=== PATIENT | female | born 1960 | race Caucasian/White ===

== ENCOUNTER 2017-12-17 05:02 | Emergency (ER) | payer OTHER ==
[2017-12-17] MEDS ORDERED: diazePAM 5 MG TABLET PO ONE (05:39)
[2017-12-17] MEDS ORDERED: ACETAMINOPHEN 1000 MG/100 ML VIAL (NON FORMULARY) IVPB ONE (05:39)
--- NOTE | 2017-12-17 05:50 | PDOC ---
History of Present Illness <Joy Laurent - Last Filed: 12/17/17 06:23> - History of Present Illness Initial Comments: 12/17/17 05:50 "The patient is a 57 year old female, with a significant past medical history of arthritis and gallstones (3 years ago), who presents to the emergency department with 2 days of bilateral shoulder pain radiating up to the back of her neck and the back of his head. She describes her pain as constant. She took Tylenol Arthritis, without relief. She reports associated chills but no fevers. The patient reports the be similar to an episode 3 years ago when she was diagnosed with gallstones. Pt endorses R sided abdominal pain. Denies N/V/D/ constipation. Denies dysuria. She denies recent chest pain or shortness of breath. Allergies: NKA Past surgical history: None reported. Social history: Smoker. Denies EtOH use and recreational drug use. Primary Care Physician: Dr. Bryce Spears " <Elia Bronson - Last Filed: 12/17/17 23:59> - General Stated Complaint: NECK/SHOULDER PAIN Time Seen by Provider: 12/17/17 05:16 Past History <Joy Laurent - Last Filed: 12/17/17 06:23> <Elia Bronson - Last Filed: 12/17/17 23:59> - Past Medical History Allergies/Adverse Reactions: Allergies Allergy/AdvReac Type Severity Reaction Status Date / Time No Known Allergies Allergy Verified 12/17/17 06:17 Home Medications: Ambulatory Orders Tramadol HCl 50 mg PO QID PRN #10 tablet MDD 4 12/17/17 Review of Systems - Review of Systems Comments:: 12/17/17 05:51 "GENERAL/CONSTITUTIONAL: No fever or chills. No weakness. HEAD, EYES, EARS, NOSE AND THROAT: No change in vision. No ear pain or discharge. No sore throat. CARDIOVASCULAR: No chest pain or shortness of breath. RESPIRATORY: No cough, wheezing, or hemoptysis. GASTROINTESTINAL: +abdominal pain No nausea, vomiting, diarrhea or constipation. GENITOURINARY: No dysuria, frequency, or change in urination. MUSCULOSKELETAL: +back pain. + Neck pain. + Shoulder pain. No joint or muscle swelling. SKIN: No rash NEUROLOGIC: No vertigo, loss of consciousness, or change in strength/sensation. ENDOCRINE: No increased thirst. No abnormal weight change. HEMATOLOGIC/LYMPHATIC: No anemia, easy bleeding, or history of blood clots. ALLERGIC/IMMUNOLOGIC: No hives or skin allergy. " <Elia Bronson - Last Filed: 12/17/17 23:59> *Physical Exam - Vital Signs Last Vital Signs Temp Pulse Resp BP Pulse Ox 97.1 F L 69 18 153/84 98 12/17/17 05:05 12/17/17 05:05 12/17/17 05:05 12/17/17 05:05 12/17/17 05:05 <Joy Laurent - Last Filed: 12/17/17 06:23> - Physical Exam Comments: 12/17/17 05:52 "GENERAL: Awake, alert, and fully oriented, in no acute distress. HEAD: No signs of trauma EYES: PERRLA, EOMI, sclera anicteric, conjunctiva clear ENT: Auricles normal inspection, hearing grossly normal, nares patent, oropharynx clear without exudates. Moist mucosa NECK:+ Paraspinal tenderness from neck to upper thoracic spine, no midline tenderness, no stepoffs, Normal ROM, supple, no lymphadenopathy, JVD, or masses LUNGS: Breath sounds equal, clear to auscultation bilaterally. No wheezes, and no crackles HEART: Regular rate and rhythm, normal S1 and S2, no murmurs, rubs or gallops ABDOMEN: + R sided TTP, normoactive bowel sounds. No guarding, no rebound. No masses EXTREMITIES: Normal range of motion, no edema. No clubbing or cyanosis. No cords, erythema, or tenderness NEUROLOGICAL: Cranial nerves II through XII intact. 5/5 strength and sensation in all extremities, Normal speech, normal gait, normal cerebellar function SKIN: Warm, Dry, normal turgor, no rashes or lesions noted. " <AiyanaElia - Last Filed: 12/17/17 23:59> Heart Score/ECG Review - ECG Impressions Comment:: 12/17/17 06:05 NSR, no Se/STDs, no TWIs, axis wnl, intervals wnl , rate 65 <AiyanaElia - Last Filed: 12/17/17 23:59> ED Treatment Course - LABORATORY CBC & Chemistry Diagram: 12/17/17 05:47 12/17/17 05:47 - ADDITIONAL ORDERS Additional order review: 12/17/17 05:47 RBC 3.81 MCV 98.6 H MCHC 34.8 RDW 12.3 MPV 7.5 Neutrophils % 51.9 Lymphocytes % 36.4 Monocytes % 8.1 Eosinophils % 2.3 Basophils % 1.3 - Medications Given in the ED: ED Medications Discontinued Medications Generic Name Dose Route Start Last Admin Trade Name Elvia PRN Reason Stop Dose Admin Diazepam 5 mg 12/17/17 05:39 12/17/17 06:17 Valium - PO 12/17/17 05:40 5 mg ONCE ONE Administration <Joy Laurent - Last Filed: 12/17/17 06:23> - LABORATORY CBC & Chemistry Diagram: 12/17/17 05:47 12/17/17 05:47 - RADIOLOGY Radiology Studies Ordered: Category Date Time Status ABDOMEN & PELVIS CT WITH CONTR [CT] Stat CT Scan 12/17/17 05:[address] W/O CONTR [CT] Stat CT Scan 12/17/17 05:38 Ordered CHEST PA & LAT [RAD] Stat Radiology 12/17/17 05:38 Ordered <Elia Bronson - Last Filed: 12/17/17 23:59> Medical Decision Making - Medical Decision Making 12/17/17 05:41 57 F with neck, back, and abdominal pain. Possible biliary colic with referred pain from diaphragm. However, pt's neck and back pain seems more msk in etiology , as it is paraspinal and reproducible with palpation. Pt with no h/o injury or trauma but will evaluate cervical spine with CT. Pt with no infectious symptoms , no meningismus. Pt with R sided abdominal tenderness, likely reflective of biliary colic but will consider CTAP to r/o appy if US is negative. - Labs - RUQ sono - CT c-spine - Tylenol, valium - Consider CTAP to r/o appy Pt signed out to oncoming attending at 7am, pending labs and imaging and reevaluation. <Elia Bronson - Last Filed: 12/17/17 23:59> *DC/Admit/Observation/Transfer - Attestations Scribe Attestion: 12/17/17 06:24 Documentation prepared by Joy Laurent, acting as medical staff services coordinator for Elia Bronson MD. <Joy Laurent - Last Filed: 12/17/17 06:23> - Attestations Physician Attestion: 12/17/17 23:59 I, Dr. Elia Bronson MD, attest that this document has been prepared under my direction and personally reviewed by me in its entirety. I further attest, that it accurately reflects all work, treatment, procedures and medical decision -making performed by me. <Elia Bronson - Last Filed: 12/17/17 23:59> Diagnosis at time of Disposition: Abdominal pain Qualifiers: Abdominal location: generalized Qualified Code(s): R10.84 - Generalized abdominal pain - Discharge Dispostion Disposition: HOME Condition at time of disposition: Improved - Prescriptions Prescriptions: Tramadol HCl 50 mg PO QID PRN #10 tablet MDD 4 PRN Reason: Pain - Referrals Referrals: Bryce Spears MD [Primary Care Provider] - - Patient Instructions Printed Discharge Instructions: DI for Abdominal Pain-Adult Additional Instructions: Return to the emergency department immediately with ANY new, persistent or worsening symptoms including worsening abdominal pain, fevers, inability to tolerate oral intake, chest pain, shortness of breath or any other concerns. Stay well hydrated. You MUST call and follow up with your doctor tomorrow. Your emergency department visit is not complete without a followup with your doctor for reevaluation. Please make sure your doctor reviews the results of your emergency evaluation. - Post Discharge Activity
[2017-12-17 05:53] VITALS: BMI 26.6
[2017-12-17] MEDS ORDERED: diazePAM 5 MG TABLET ONE (06:00)
[2017-12-17] MEDS ORDERED: ACETAMINOPHEN INJECTION 100 ML IVPB ONE (06:00)
[2017-12-17 06:03] LABS: BASO % 1.3 % (0-2.0); EOS % 2.3 % (0-4.5); HEMATOCRIT 37.6 % (32.4-45.2); HEMOGLOBIN 13.1 GM/dL (10.7-15.3); LYMPH % 36.4 % (8-40); MCH 34.4 pg (25.7-33.7); MCHC 34.8 g/dl (32.0-36.0); MEAN CELL VOLUME 98.6 fl (80-96); MEAN PLT VOLUME 7.5 fl (7.5-11.1); MONO % 8.1 % (3.8-10.2); NEUT % 51.9 % (42.8-82.8); PLATELET COUNT 264 K/MM3 (134-434); RBC 3.81 M/mm3 (3.60-5.2); RDW 12.3 % (11.6-15.6); WHITE BLOOD COUNT 7.9 K/mm3 (4.0-10.0)
[2017-12-17 06:35] LABS: ALBUMIN 3.2 g/dl (3.4-5.0); ALK PHOS 68 U/L (45-117); ANION GAP 5 (8-16); BILIRUBIN,TOTAL 0.3 mg/dL (0.2-1.0); BLOOD UREA NITROGEN 15 mg/dL (7-18); CHLORIDE 106 mmol/L (98-107); CO2 28 mmol/L (21-32); CREATININE 0.8 mg/dL (0.55-1.02); GLUCOSE,RANDOM 89 mg/dL (74-106); LIPASE 107 U/L (73-393); POTASSIUM 4.2 mmol/L (3.5-5.1); SGOT/AST 37 U/L (15-37); SGPT/ALT 96 U/L (12-78); SODIUM 139 mmol/L (136-145); TOT PROT 6.9 g/dl (6.4-8.2)
[2017-12-17] MEDS ORDERED: FAMOTIDINE 20 MG/50 ML IVPB 20 MG in PREMIX 50 IVPB ONE (07:27)
[2017-12-17] MEDS ORDERED: ONDANSETRON 4 MG/2 ML VIAL IVPUSH PRN (07:27)
[2017-12-17] MEDS ORDERED: KETOROLAC TROMETHAMINE 30 MG/1 ML VIAL IVPUSH ONE (07:27)
[2017-12-17] MEDS ORDERED: MAG HYDROX/AL HYDROX/SIMETH -MYLANTA- ORAL SUSPENSION PO ONE (07:27)
--- NOTE | 2017-12-17 07:28 | PDOC ---
*Physical Exam - Vital Signs Last Vital Signs Temp Pulse Resp BP Pulse Ox 97.1 F L 69 18 153/84 98 12/17/17 05:05 12/17/17 05:05 12/17/17 05:05 12/17/17 05:05 12/17/17 05:05 Heart Score/ECG Review - ECG Impressions Comment:: 12/17/17 07:36 Twelve-lead EKG was performed and reviewed by me. There is normal sinus rhythm with a normal rate. rate of 65 The axis is normal. The intervals are normal. There are no ST or T wave abnormalities. ED Treatment Course - LABORATORY CBC & Chemistry Diagram: 12/17/17 05:47 12/17/17 05:47 - ADDITIONAL ORDERS Additional order review: 12/17/17 05:47 RBC 3.81 MCV 98.6 H MCHC 34.8 RDW 12.3 MPV 7.5 Neutrophils % 51.9 Lymphocytes % 36.4 Monocytes % 8.1 Eosinophils % 2.3 Basophils % 1.3 - Medications Given in the ED: ED Medications Discontinued Medications Generic Name Dose Route Start Last Admin Trade Name Elvia PRN Reason Stop Dose Admin Acetaminophen 1,000 mg 12/17/17 05:39 12/17/17 06:00 Ofirmev Injection - IVPB 12/17/17 05:40 1,000 mg ONCE ONE Administration Diazepam 5 mg 12/17/17 05:39 12/17/17 06:17 Valium - PO 12/17/17 05:40 5 mg ONCE ONE Administration Medical Decision Making - Medical Decision Making 12/17/17 07:28 Pt signed out to me from Dr. Bronson approx 7am. 57y F hx of gall stones presents with complaint of back pain and abdominal pain. The pt states 2 days ago, she woke up with R upper back pain radiating to the neck. The pain went away, but last night the pain came back approx 4pm and was associated with epigastric/right sided pain associated with epigastric burning without sob, f/c. +nausea w/o vomiting that started in the past hr or so. pt deneis any numbness/tingling/weakness, leg swelling, vomiting, diarrhea , dysuria. pt notes the sympoms are similar to when she had her gall stones 2-3 years ago. on exam pt had mlid R sided ab tenderness. she has mild tenderness in the R trapezius. ekg is NSR with rate of 65 w/o any ST changes suspect possible gall stones, radiculopathy vs msk spasms, vs gastritis Pt was given tylenol and valium prior to my arrival but still feels uncomfortable. will give pt toradol and pepcid/maalox awaiting imaging and cmp, ua 12/17/17 11:26 pt still complaining of pain but pain is not worse in the RLQ RUQ nontender ?appendicitis will obtain CT abdomen, will give pt a dose of morphine 12/17/17 14:10 ct negative pt feeling a bit better will dc the pt to fu with pmd return precautions wer discussed I discussed the physical exam findings, ancillary test results and final diagnoses with the patient. I answered all of the patient's questions. The patient was satisfied with the care received and felt comfortable with the discharge plan and treatment plan. The patient will call their primary care physician within 24 hours to arrange follow-up and will return to the Emergency Department with any new, persistent or worsening symptoms. *DC/Admit/Observation/Transfer Diagnosis at time of Disposition: Abdominal pain Qualifiers: Abdominal location: generalized Qualified Code(s): R10.84 - Generalized abdominal pain - Discharge Dispostion Disposition: HOME Condition at time of disposition: Improved Decision to Admit order: No - Prescriptions Prescriptions: Tramadol HCl 50 mg PO QID PRN #10 tablet MDD 4 PRN Reason: Pain - Referrals Referrals: Bryce Spears MD [Primary Care Provider] - - Patient Instructions Printed Discharge Instructions: DI for Abdominal Pain-Adult Additional Instructions: Return to the emergency department immediately with ANY new, persistent or worsening symptoms including worsening abdominal pain, fevers, inability to tolerate oral intake, chest pain, shortness of breath or any other concerns. Stay well hydrated. You MUST call and follow up with your doctor tomorrow. Your emergency department visit is not complete without a followup with your doctor for reevaluation. Please make sure your doctor reviews the results of your emergency evaluation. - Post Discharge Activity
[2017-12-17] MEDS ORDERED: FAMOTIDINE 20 MG/50 ML IVPB 20 MG/50 ML MG IVPB ONE (07:36)
[2017-12-17] MEDS ORDERED: KETOROLAC TROMETHAMINE 30 MG/1 ML VIAL ONE (07:36)
[2017-12-17] MEDS ORDERED: MAG HYDROX/AL HYDROX/SIMETH 30 ML UNIT-DOSE CUP ONE (07:36)
[2017-12-17 09:06] LABS: URINE APPEARANCE CLEAR; URINE BILIRUBIN NEGATIVE (<2.0 mg/dL); URINE BLOOD NEGATIVE (NEGATIVE); URINE COLOR LTYELLOW; URINE GLUCOSE (UA) NEGATIVE (NEGATIVE); URINE KETONE NEGATIVE (NEGATIVE); URINE LEUK ESTERASE NEGATIVE (NEGATIVE); URINE NITRITE NEGATIVE (NEGATIVE); URINE PROTEIN NEGATIVE (NEGATIVE); URINE UROBILINOGEN NEGATIVE mg/dL (0.2-1.0)
[2017-12-17] MEDS ORDERED: morphine CARPU-JECT 4 MG/1 ML DISP.SYRIN IVPUSH ONE (11:23)
--- NOTE | 2017-12-17 11:26 | EKG ---
Test Reason : Blood Pressure : / mmHG Vent. Rate : 065 BPM Atrial Rate : 065 BPM P-R Int : 176 ms QRS Dur : 086 ms QT Int : 392 ms P-R-T Axes : 065 074 072 degrees QTc Int : 407 ms NORMAL SINUS RHYTHM WITH SINUS ARRHYTHMIA NORMAL ECG NO PREVIOUS ECGS AVAILABLE Confirmed by KYMBERLY SAENZ, AIDAN ([id number]) on 12/17/2017 11:26:20 AM Referred By: Confirmed By:AIDAN TRAYLOR MD
[2017-12-17] MEDS ORDERED: morphine SULFATE 4 MG/ML VIAL ONE (11:49)
[2017-12-17] MEDS ORDERED: ONDANSETRON 4 MG/2 ML VIAL ONE (11:49)
[2017-12-17 12:04] VITALS: BP 148/69; PULSE 79; TEMP 97.7
== END 2017-12-17 14:15 | disposition home or self-care (01) ==
LOC: JER 05:02
PROC: 3E033GC Introduction of Other Therapeutic Substance into Peripheral Vein, Percutaneous Approach (ICD-10-PCS; principal; 2017-12-17)
PROC: 3E033NZ Introduction of Analgesics, Hypnotics, Sedatives into Peripheral Vein, Percutaneous Approach (ICD-10-PCS; 2017-12-17)
PROC: 3E0333Z Introduction of Anti-inflammatory into Peripheral Vein, Percutaneous Approach (ICD-10-PCS; 2017-12-17)
PROC: 3E033GC Introduction of Other Therapeutic Substance into Peripheral Vein, Percutaneous Approach (ICD-10-PCS; 2017-12-17)
DX: R10.84 Generalized abdominal pain (principal); M54.5 Low back pain; M25.511 Pain in right shoulder; M25.512 Pain in left shoulder
CPT/HCPCS: 36415; 71046-TC-FY; 72125-TC; 74177-TC; 76700-TC; 80053; 81003; 82550; 83690; 84484; 85025; 86140; 93005; 93010; 99283-25; J0131

== ENCOUNTER 2017-12-21 09:27 | Inpatient (IN) | payer OTHER ==
[2017-12-21 09:32] VITALS: BMI 26.9
--- NOTE | 2017-12-21 10:31 | PDOC ---
History of Present Illness - General Chief Complaint: Pain Stated Complaint: REVISIT/ PAIN Time Seen by Provider: 12/21/17 10:00 - History of Present Illness Initial Comments: 12/21/17 10:31 57 year old female with a hx of arthritis and gallstones presents to the hospital for several day hx of worsening RUQ, pressure-like, 10/10 abdominal pain and nausea/vomiting. She was recently evaluated on 12/17 for similar pain, found to have cholelithiasis without cholecystitis on imaging. Patient states that since discharge, her pain became worse and is affecting her back, bilateral shoulders, and it is difficult for her to breathe without feeling the pain in her abdomen. She vomited several times, non-bloody non-bilious. She saw her PCP Dr. Spears who advised seeing GI and a surgeon, but she was unable to do so given the severity of her pain. Denies chest pain, shortness of breath, fevers or chills. PCP: Dr. Bryce Spears PSH: oophorectomy b/l many years ago Smoke: current every day smoker of 5 cigs/day Drink: social Drugs: none Allergies: NKDA Past History - Past Medical History Allergies/Adverse Reactions: Allergies Allergy/AdvReac Type Severity Reaction Status Date / Time No Known Allergies Allergy Verified 12/21/17 09:32 Home Medications: Ambulatory Orders Tramadol HCl 50 mg PO QID PRN #10 tablet MDD 4 12/17/17 Cardiac Disorders: Yes (mitral valve prolapse) COPD: No Other medical history: arthritis - Suicide/Smoking/Psychosocial Hx Smoking History: Never smoked Have you smoked in the past 12 months: No Number of Cigarettes Smoked Daily: 5 Information on smoking cessation initiated: Yes Hx Alcohol Use: No Drug/Substance Use Hx: No Substance Use Type: None Review of Systems - Review of Systems Constitutional: Yes: Loss of Appetite. No: Fever Respiratory: No: Cough, Shortness of Breath, Wheezing Cardiac (ROS): No: Chest Pain, Edema ABD/GI: Yes: Nausea, Vomiting, Other (Abdominal pain) Musculoskeletal: Yes: Back Pain, Neck Pain *Physical Exam - Vital Signs Last Vital Signs Temp Pulse Resp BP Pulse Ox 97.9 F 74 17 152/100 99 12/21/17 09:29 12/21/17 09:29 12/21/17 09:29 12/21/17 09:29 12/21/17 09:29 - Physical Exam Comments: 12/21/17 10:41 GENERAL: A&Ox3, mild distress EYES: PERRLA, EOMI ENT: Moist mucus membranes NECK: No JVD LUNGS: CTA, no wheezes HEART: RRR, no murmurs ABDOMEN: Soft, tender to palpation in the RUQ, lopez sign positive, bowel sounds present MUSCULOSKELETAL: No CVA Tenderness EXTREMITIES: 2+ pulses, no edema. NEUROLOGICAL: Cranial nerves II-XII intact. ED Treatment Course - LABORATORY CBC & Chemistry Diagram: 12/21/17 10:37 12/21/17 10:24 Medical Decision Making - Medical Decision Making 12/21/17 10:42 57 year old female with a hx of gallstones and arthritis presented to ED with worsening RUQ pain and nausea/vomiting Differentials include symptomatic cholelithiasis, cholelithiasis, choledocholithiasis Plan -CBC -CMP -Lipase -Troponin -EKG -INR -UA -Consult Dr. Zazueta 12/21/17 13:08 -d/w Dr. Zazueta -patient placed NPO -Type and screen ordered -fluids ordered -Patient continues to feel pain in RUQ 12/21/17 14:14 -US shows cholelithiasis w/o biliary duct dilation -repeat morphine 2mg -admit *DC/Admit/Observation/Transfer Diagnosis at time of Disposition: Cholelithiasis without cholecystitis - Discharge Dispostion Condition at time of disposition: Stable Decision to Admit order: Yes - Referrals - Patient Instructions - Post Discharge Activity
[2017-12-21] MEDS ORDERED: morphine CARPU-JECT 2 MG/1 ML DISP.SYRIN IVPUSH ONE ×2 (10:32→13:34)
[2017-12-21] MEDS ORDERED: morphine CARPU-JECT 2 MG/1 ML DISP.SYRIN ONE ×2 (10:45→13:41)
[2017-12-21 11:01] LABS: BASO % 1.1 % (0-2.0); EOS % 1.4 % (0-4.5); HEMATOCRIT 42.3 % (32.4-45.2); HEMOGLOBIN 14.5 GM/dL (10.7-15.3); LYMPH % 35.2 % (8-40); MCHC 34.4 g/dl (32.0-36.0); MEAN CELL VOLUME 98.9 fl (80-96); MEAN PLT VOLUME 8.4 fl (7.5-11.1); MONO % 6.8 % (3.8-10.2); NEUT % 55.5 % (42.8-82.8); PLATELET COUNT 327 K/MM3 (134-434); RBC 4.27 M/mm3 (3.60-5.2); RDW 12.4 % (11.6-15.6); WHITE BLOOD COUNT 6.3 K/mm3 (4.0-10.0)
[2017-12-21 11:17] LABS: ALBUMIN 4.1 g/dl (3.4-5.0); ANION GAP 6 (8-16); BILIRUBIN,TOTAL 0.4 mg/dL (0.2-1.0); BLOOD UREA NITROGEN 13 mg/dL (7-18); CALCIUM 9.8 mg/dL (8.5-10.1); CHLORIDE 104 mmol/L (98-107); CO2 28 mmol/L (21-32); CREATININE 0.9 mg/dL (0.55-1.02); GLUCOSE,RANDOM 83 mg/dL (74-106); LIPASE 78 U/L (73-393); POTASSIUM 4.2 mmol/L (3.5-5.1); SGOT/AST 48 U/L (15-37); SGPT/ALT 116 U/L (12-78); SODIUM 138 mmol/L (136-145)
[2017-12-21 11:20] LABS: ALK PHOS 84 U/L (45-117)
[2017-12-21] MEDS ORDERED: SODIUM CHLORIDE 1,000 ML IV STA (12:07)
[2017-12-21 12:29] LABS: URINE APPEARANCE CLEAR; URINE BILIRUBIN NEGATIVE (<2.0 mg/dL); URINE COLOR STRAW; URINE GLUCOSE (UA) NEGATIVE (NEGATIVE); URINE KETONE NEGATIVE (NEGATIVE); URINE LEUK ESTERASE NEGATIVE (NEGATIVE); URINE NITRITE NEGATIVE (NEGATIVE); URINE PROTEIN NEGATIVE (NEGATIVE); URINE UROBILINOGEN NEGATIVE mg/dL (0.2-1.0)
--- NOTE | 2017-12-21 12:31 | PDOC ---
Attending Attestation - Resident Resident Name: Kenan Ruff - ED Attending Attestation I have performed the following: I have examined & evaluated the patient, The case was reviewed & discussed with the resident, I agree w/resident's findings & plan, Exceptions are as noted - HPI HPI: 12/21/17 12:26 "The patient is a 57 year old female with a significant PMH of arthritis and gallstones who presents to the emergency department with several days of worsening right upper quadrant pain. The patient describes her right upper quadrant pain as a pressure-like pain and a 10/10 severity. The patient reports associated abdominal pain, nausea, and vomiting. Pt was here 4 days ago and had work up revealing only cholelithiasis without cholecystitis. The patient reports that since then her pain has worsened. Pt also reports bilateral shoulder pain that has not changed. She reports 1 episode of vomiting today. She denies any fever, chills, nausea, diarrhea, constipation or urinary symptoms. She denies chest pain, shortness of breath, headache or dizziness. The patient denies any other complaints. PCP: " - Physicial Exam PE: 12/21/17 12:30 "GENERAL: Awake, alert, and fully oriented, in no acute distress. HEAD: No signs of trauma EYES: PERRLA, EOMI, sclera anicteric, conjunctiva clear ENT: Auricles normal inspection, hearing grossly normal, nares patent, oropharynx clear without exudates. Moist mucosa NECK: Nontender, no stepoffs, Normal ROM, supple, no lymphadenopathy, JVD, or masses LUNGS: Breath sounds equal, clear to auscultation bilaterally. No wheezes, and no crackles HEART: Regular rate and rhythm, normal S1 and S2, no murmurs, rubs or gallops ABDOMEN: + RUQ tenderness, normoactive bowel sounds. No guarding, no rebound. No masses EXTREMITIES: Normal range of motion, no edema. No clubbing or cyanosis. No cords, erythema, or tenderness NEUROLOGICAL: Cranial nerves II through XII intact. 5/5 strength and sensation in all extremities, Normal speech, normal gait, normal cerebellar function SKIN: Warm, Dry, normal turgor, no rashes or lesions noted. " - Medical Decision Making 12/21/17 12:31 57 F with cholelithiasis presenting with worsening abdominal pain. Likely symptomatic cholelithiasis vs acute cholecystitis. - Labs - RUQ sono - Surgery consult
[2017-12-21] MEDS ORDERED: KETOROLAC TROMETHAMINE 15 MG/ML VIAL IVPUSH ONE (15:19)
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
[2017-12-21 16:11] LABS: INR 1.04 (0.82-1.09); PROTHROMBIN TIME (PATIENT) 11.8 SEC (9.7-13.0)
[2017-12-21] MEDS ORDERED: KETOROLAC TROMETHAMINE 15 MG/ML VIAL ONE (16:16)
--- NOTE | 2017-12-21 16:26 | EKG ---
Test Reason : Blood Pressure : / mmHG Vent. Rate : 055 BPM Atrial Rate : 055 BPM P-R Int : 168 ms QRS Dur : 088 ms QT Int : 406 ms P-R-T Axes : 058 065 061 degrees QTc Int : 388 ms SINUS BRADYCARDIA OTHERWISE NORMAL ECG WHEN COMPARED WITH ECG OF 17-DEC-2017 06:04, NO SIGNIFICANT CHANGE WAS FOUND Confirmed by MARC KUMAR MD ([id number]) on 12/21/2017 4:26:14 PM Referred By: Confirmed By:MARC KUMAR MD
[2017-12-21] MEDS ORDERED: ONDANSETRON 4 MG/2 ML VIAL IVPUSH PRN (16:50)
[2017-12-21] MEDS ORDERED: ACETAMINOPHEN 1000 MG/100 ML VIAL (NON FORMULARY) IVPB PRN ×2 (16:51→16:59)
[2017-12-21] MEDS ORDERED: traMADol HCL 50 MG TABLET PO PRN (16:55)
[2017-12-21] MEDS ORDERED: DEXTROSE 5%-LACTATED RINGERS 1,000 ML IV SCH (17:00)
[2017-12-21] MEDS ORDERED: FAMOTIDINE 20 MG/50 ML IVPB 20 MG/50 ML MG IVPB ONE (17:13)
[2017-12-21] MEDS: FAMOTIDINE 20 MG/50 ML IVPB 20 MG/50 ML MG IVPB SCH ×2 (17:20→21:34)
[2017-12-21] MEDS ORDERED: IBUPROFEN 800 MG/8 ML IJ IVPB PRN (21:00)
[2017-12-22 06:50] LABS: BASO % 0.5 % (0-2.0); EOS % 2.6 % (0-4.5); HEMOGLOBIN 12.3 GM/dL (10.7-15.3); MCH 33.9 pg (25.7-33.7); MCHC 34.2 g/dl (32.0-36.0); MEAN PLT VOLUME 8.3 fl (7.5-11.1); MONO % 8.8 % (3.8-10.2); NEUT % 34.1 % (42.8-82.8); PLATELET COUNT 273 K/MM3 (134-434); RBC 3.64 M/mm3 (3.60-5.2); RDW 12.1 % (11.6-15.6); WHITE BLOOD COUNT 4.9 K/mm3 (4.0-10.0)
[2017-12-22] MEDS ORDERED: ACETAMINOPHEN 1000 MG/100 ML VIAL (NON FORMULARY) IVPB PRN (07:25)
[2017-12-22] MEDS ORDERED: IBUPROFEN 800 MG/8 ML IJ IVPB PRN (07:25)
[2017-12-22] MEDS ORDERED: traMADol HCL 50 MG TABLET PO PRN ×2 (07:25→17:05)
[2017-12-22] MEDS ORDERED: DEXTROSE 5%-LACTATED RINGERS 1,000 ML IV SCH (07:25)
[2017-12-22] MEDS ORDERED: ONDANSETRON 4 MG/2 ML VIAL IVPUSH PRN ×3 (07:25→17:05)
[2017-12-22 08:04] LABS: CHLORIDE 107 mmol/L (98-107); POTASSIUM 4.1 mmol/L (3.5-5.1); SODIUM 141 mmol/L (136-145)
[2017-12-22 08:50] LABS: ALBUMIN 3.1 g/dl (3.4-5.0); ALK PHOS 67 U/L (45-117); ANION GAP 10 (8-16); BILIRUBIN,TOTAL 0.6 mg/dL (0.2-1.0); BLOOD UREA NITROGEN 13 mg/dL (7-18); CALCIUM 8.7 mg/dL (8.5-10.1); CO2 24 mmol/L (21-32); CREATININE 0.8 mg/dL (0.55-1.02); GLUCOSE,RANDOM 91 mg/dL (74-106); LIPASE 92 U/L (73-393); SGOT/AST 37 U/L (15-37); SGPT/ALT 95 U/L (12-78); TOT PROT 6.4 g/dl (6.4-8.2)
[2017-12-22] MEDS ORDERED: FAMOTIDINE 20 MG/50 ML IVPB 20 MG/50 ML MG IVPB SCH (10:00)
[2017-12-22] MEDS ORDERED: PROPOFOL 20 ML ONE ×2 (14:24)
[2017-12-22] MEDS ORDERED: SUCCINYLCHOLINE CHLORIDE 200 MG/10 ML VIAL ONE (14:24)
[2017-12-22] MEDS ORDERED: MIDAZOLAM HCL 2 MG/2 ML SINGLE DOSE VIAL ONE (14:24)
[2017-12-22] MEDS ORDERED: ROCURONIUM BROMIDE 50 MG/5 ML VIAL ONE (14:25)
[2017-12-22] MEDS ORDERED: cefOXitin SODIUM 2 GM VIAL (RESTRICTED TO ID) IVPB ONE (14:50)
[2017-12-22] MEDS ORDERED: CEFOXITIN SODIUM 2 GM in DEXTROSE 5%-WATER - 100 ML IVPB ONE ×2 (15:00→21:00)
[2017-12-22] MEDS ORDERED: BUPIVACAINE HCL/PF 0.5% (5MG/ML) 10 ML VIAL ONE (15:07)
[2017-12-22] MEDS ORDERED: NEOSTIGMINE METHYLSULFATE 0.5 MG/ML - 10 ML MDV ONE (15:45)
[2017-12-22] MEDS ORDERED: BUPIVACAINE HCL/PF 0.5% (5MG/ML) 10 ML VIAL IJ ONE ×2 (15:50)
[2017-12-22] MEDS ORDERED: LACTATED RINGERS SOLUTION 1,000 ML IV SCH ×2 (16:30→17:05)
--- NOTE | 2017-12-22 16:36 | OP ---
Operative Note - Note: Operative Date: 12/22/17 Pre-Operative Diagnosis: cholelithiasis with impacted stone(s) Operation: laparoscopic cholecystectomy Findings: omentum adherent over gallbladder, small bile spill irrigated and suctioned clear, critical view obtained Post-Operative Diagnosis: Other (cholelithiasis with chronic cholecystitis) Surgeon: Harish Zazueta [employer] Specialist: Jesus Camejo Anesthesiologist/BRAKE REPAIRER: Jeaneth Johnson Anesthesia: General, Local (20ml 0.5% marcaine) Specimens Removed: gallbladder to pathology Estimated Blood Loss (mls): 10 Fluid Volume Replaced (mls): 900 (crystalloid) Operative Report Dictated: Yes
[2017-12-22] MEDS ORDERED: ACETAMINOPHEN 325 MG TABLET (FP) PO SCH (18:00)
[2017-12-22] MEDS: ACETAMINOPHEN 325 MG TABLET (FP) PO SCH (18:05)
[2017-12-22] MEDS ORDERED: IBUPROFEN 600 MG TABLET (FP) PO SCH (21:00)
[2017-12-22] MEDS: IBUPROFEN 600 MG TABLET (FP) PO SCH (21:15)
[2017-12-23] MEDS: ACETAMINOPHEN 325 MG TABLET (FP) PO SCH ×2 (00:05→06:12)
[2017-12-23] MEDS: IBUPROFEN 600 MG TABLET (FP) PO SCH ×2 (04:35→09:20)
--- NOTE | 2017-12-23 08:52 | PN ---
Progress Note (short form) - Note Progress Note: Pot op day#1.S/P Laproscopic cholecystectomy under GA uneventful.Patient stable.No any anesthesia related problem.Patient Dc from the anesthesia care.
[2017-12-23 10:06] VITALS: BP 115/58; PULSE 57; TEMP 97.9
--- NOTE | 2017-12-23 10:26 | DS ---
Physical Examination Vital Signs: Vital Signs Temperature 97.9 F 12/23/17 10:05 Pulse Rate 57 L 12/23/17 10:05 Respiratory Rate 18 12/23/17 10:05 Blood Pressure 115/58 12/23/17 10:05 O2 Sat by Pulse Oximetry (%) 97 12/22/17 21:00 Findings/Remarks: Pt seen and examined in bed. Feeling much better, neck and back pain is gone. Abdominal pain only from umbilical incision. Has eaten lightly, voided, ambulated. Doing ok with Tylenol and ibuprofen, had Tramadol only once. Ready to go home. Constitutional: Yes: Well Nourished, No Distress, Calm Eyes: Yes: Conjunctiva Clear, EOM Intact. No: Sclera Icterus HENT: Yes: Atraumatic, Normocephalic Neck: Yes: Supple, Trachea Midline Cardiovascular: Yes: Regular Rate and Rhythm. No: Murmur Respiratory: Yes: Regular, CTA Bilaterally Gastrointestinal: Yes: Normal Bowel Sounds, Soft, Distention (mild), Tenderness (mild incisional, mainly at umbilicus, minimal RUQ) Renal/: No: CVA Tenderness - Left, CVA Tenderness - Right Musculoskeletal: No: Back Pain, Joint Swelling Extremities: No: Cool, Cyanosis Integumentary: Yes: Incision (x4 dressed). No: Jaundice, Rash Wound/Incision: Yes: Steri Strips (under dressings), Dressing Dry and Intact (x4 ). No: Dressing Removed Neurological: Yes: Alert, Oriented Psychiatric: Yes: Alert, Oriented Labs: no new labs Discharge Summary Reason For Visit: CALC OF GALLBLADD W/CHRONIC CHOLECYSTITIS W/O OBST Current Active Problems Bipolar disorder (Acute) Calculus of gallbladder with chronic cholecystitis without obstruction (Acute) History of opioid abuse (Acute) Nausea and vomiting (Acute) RUQ pain (Acute) Tobacco dependence due to cigarettes (Acute) Procedures: Principal: laparoscopic cholecystectomy Hospital Course: 57yoF admitted through ER with RUQ and epigastric pain, normal WBC and LFTs/ lipase, known cholelithiasis, with gallstones in neck of gallbladder but no signs of cholecystitis on imaging, with significant pain. She was taken for laparoscopic cholecystectomy with findings of chronic cholecystitis, omentum adherent over gallbladder with friable tissue and inflamed gallbladder. Postoperative course has been unremarkable; pt is ambulating, voiding, tolerated breakfast, and doing well on oral pain meds. She is discharged home to f/u in 2 weeks, also to f/u with PMD Dr. Spears, and referred to psychiatry for bipolar disorder not currently on meds. See H&P for further details. Time spent on discharge: 35 mins. Condition: Good - Instructions Diet, Activity, Other Instructions: Postoperative instructions: You had a laparoscopic cholecystectomy on 12/22/[address] Harish Zazueta of [facility]. Activity: Resume your usual activities gradually, but no heavy exertion or lifting more than 10-15 pounds for 1 month. Remove dressings 48 hours after surgery; sticky tapes underneath will fall off by themselves. You may shower daily starting then, just pat the incision areas dry. No bath or swimming until skin incisions have healed. Eat lightly at first, but advance to your usual diet as tolerated. Pain: For pain, you may use and alternate Tylenol (acetaminophen) and/or ibuprofen every 6 hours each as needed; this means that you can take one OR the other at 3-hour intervals. Do not take more than 4000mg of acetaminophen in a day. You may use Tramadol at home for severe pain up to 2 or 3 times a day as needed, in addition to Tylenol and ibuprofen. Take medications as prescribed or indicated on the labeling. Follow-up: Call Dr. Zazueta's office at [phone] to make your postop appointment (Thursday ~2 weeks after surgery). Clinic is held in the [facility] on the first floor of [facility]. Call the office if you have: * increasing pain not responsive to pain medication * fever of 101F or higher * vomiting * unusual or increasing bleeding or drainage from wounds * increasing redness or swelling at wound sites Also, see your primary medical doctor (Dr. Spears) within 1-2 weeks. You have been given a referral to psychiatrist, Dr. Jessie Gamez. You may also discuss other options with Dr. Spears to find one you are comfortable with. Referrals: Pat Gamez MD [Staff Physician] - Bryce Spears MD [Primary Care Provider] - Disposition: HOME - Home Medications Comprehensive Discharge Medication List: Ambulatory Orders Tramadol HCl 50 mg PO QID PRN #10 tablet MDD 4 12/17/17 Acetaminophen [Tylenol .Regular Strength -] 650 mg PO Q6H tablet 12/23/17 Ibuprofen [Motrin -] 600 mg PO Q6H tablet 12/23/17
--- NOTE | 2017-12-24 16:34 | PATH ---
Surgical Pathology Report Patient Name: SHANTANU JUAN Med. Rec. #: [id number] /Age/Gender: 1960 (Age: 57) / F Account: [id number] Location: [facility] MED/SURG Taken: 12/22/2017 Received: 12/23/2017 Reported: 12/24/2017 Physicians: Harish Zazueta M.D. Specimen(s) Received GALLBLADDER Clinical History Calculus of gallbladder w/o cholecystitis w/o obstruction Final Diagnosis GALLBLADDER, REMOVAL: CHRONIC CHOLECYSTITIS AND CHOLELITHIASIS. Electronically Signed Jorge Luis Umana M.D. Gross Description Received in formalin, labeled "gallbladder" is a 7.8 x 2.5 cm gallbladder. The serosal aspect is smooth. Upon opening, the lumen is distended with thick green viscid bile admixed with yellow-green choleliths. The mucosa appears bile-stained. The wall thickness is up to 0.3 cm. Research Neuropsychologist sections are submitted one cassette. AE/12/23/2017 ebram/12/23/2017
== END 2017-12-23 10:48 | disposition home or self-care (01) | DRG 263 ==
LOC: JER 09:27 → JERBED 15:30 → J8W 18:01
PROVIDERS: ADMIT Surgery; ATTEND Surgery
PROC: 3E1M38Z Irrigation of Peritoneal Cavity using Irrigating Substance, Percutaneous Approach (ICD-10-PCS; 2017-12-22)
PROC: 0FT44ZZ Resection of Gallbladder, Percutaneous Endoscopic Approach (ICD-10-PCS; principal; 2017-12-22 14:30)
DX: K80.10 Calculus of gallbladder with chronic cholecystitis without obstruction (principal); F17.210 Nicotine dependence, cigarettes, uncomplicated; I34.1 Nonrheumatic mitral (valve) prolapse; M54.9 Dorsalgia, unspecified; M54.2 Cervicalgia; F31.9 Bipolar disorder, unspecified; R11.2 Nausea with vomiting, unspecified; M19.90 Unspecified osteoarthritis, unspecified site; F11.11 Opioid abuse, in remission; Z78.0 Asymptomatic menopausal state; Z90.722 Acquired absence of ovaries, bilateral
CPT/HCPCS: 36415; 76700-TC; 80053; 81003; 82550; 83690; 84484; 85025; 85610; 86850; 86900; 86901; 88304-TC; 93005; 93010; 94760; 99284-25; J0131; J7030

== ENCOUNTER 2018-02-09 21:40 | Observation (INO) | payer OTHER ==
[2018-02-09 22:20] VITALS: BMI 25.4
--- NOTE | 2018-02-09 22:24 | PDOC ---
History of Present Illness - General Chief Complaint: Pain Stated Complaint: CHEST PAIN Time Seen by Provider: 02/09/18 22:24 History Source: Patient, Spouse - History of Present Illness Initial Comments: 02/09/18 23:16 58-year-old female with recent cardiac stent placement (01/27) and cholecystectomy complaining of right-sided weakness and right-sided shoulder pain, headache and nausea vomiting with chest pain since 8:30 PM. Patient is currently on plavix. patient was seen by Dr. Saenz this week post op. patient reports pain is intermittent A: PCP: [facility] cardiology: nirmal 02/10/18 01:24 Past History - Past Medical History Allergies/Adverse Reactions: Allergies Allergy/AdvReac Type Severity Reaction Status Date / Time No Known Allergies Allergy Verified 02/09/18 22:08 Home Medications: Ambulatory Orders Aspirin [Ecotrin] 81 mg PO DAILY 02/10/18 Atorvastatin Ca [Lipitor] 10 mg PO HS 02/10/18 Clopidogrel Bisulfate [Clopidogrel] 75 mg PO DAILY 02/10/18 Metoprolol Succinate 12.5 mg PO DAILY 02/10/18 Acetaminophen [Tylenol .Regular Strength -] 650 mg PO Q6H PRN tablet 02/11/18 Cyclobenzaprine HCl [Flexeril -] 5 mg PO BID #28 tablet 02/11/18 Isosorbide Mononitrate [Imdur -] 30 mg PO DAILY #30 tab.sr.24h 02/11/18 Cancer: Yes (breast cancer r. lumpectomy) Cardiac Disorders: Yes (mitral valve prolapse, [place] 01/25/18) COPD: No - Surgical History Cardiac Surgery: Yes (Stent 01/27/18) Cholecystectomy: Yes (01/05/18) - Suicide/Smoking/Psychosocial Hx Smoking History: Former smoker Have you smoked in the past 12 months: Yes Number of Cigarettes Smoked Daily: 10 If you are a former smoker, when did you quit?: 1 wk ago Information on smoking cessation initiated: No 'Breaking Loose' booklet given: 01/25/18 Hx Alcohol Use: No Drug/Substance Use Hx: No Substance Use Type: None Review of Systems - Review of Systems Able to Perform ROS?: Yes Is the patient limited [place] proficient: No Constitutional: No: Symptoms Reported, See HPI, Chills, Diaphoresis, Fever, Loss of Appetite, Malaise, Night Sweats, Weakness, Weight Stable, Unintentional Wgt. Loss, Unexplained wgt Loss, Other Cardiac (ROS): Yes: Chest Pain ABD/GI: Yes: Nausea, Vomiting Neurological: Yes: Headache, Weakness *Physical Exam - Vital Signs Last Vital Signs Temp Pulse Resp BP Pulse Ox 97.6 F 74 17 124/74 99 02/11/18 10:01 02/11/18 10:01 02/11/18 10:02/11/18 10:02/11/18 10:02 - Physical Exam General Appearance: Yes: Moderate Distress Respiratory/Chest: positive: Lungs Clear, Normal Breath Sounds Cardiovascular: positive: Regular Rhythm, Regular Rate Gastrointestinal/Abdominal: positive: Normal Bowel Sounds, Soft Extremity: positive: Normal Capillary Refill, Normal Inspection, Normal Range of Motion Integumentary: positive: Normal Color, Dry, Warm Neurologic: positive: Fully Oriented, Alert ED Treatment Course - LABORATORY CBC & Chemistry Diagram: 02/10/18 09:30 02/10/18 09:30 - ADDITIONAL ORDERS Additional order review: 02/09/18 23:45 RBC 4.03 MCV 98.6 H MCHC 35.0 RDW 11.8 MPV 8.1 Neutrophils % 44.7 Lymphocytes % 44.3 H Monocytes % 6.6 Eosinophils % 2.1 Basophils % 2.3 H - RADIOLOGY Radiology Studies Ordered: Category Date Time Status HEAD CT (STROKE) [CT] Stat CT Scan 02/09/18 22:50 Completed NECK CTA [CT] Stat CT Scan 02/10/18 01:00 Completed CHEST PA & LAT [RAD] Stat Radiology 02/10/18 08:00 Completed - Medications Given in the ED: ED Medications Discontinued Medications Generic Name Dose Route Start Last Admin Trade Name Freq PRN Reason Stop Dose Admin Acetaminophen 650 mg 02/10/18 21:48 02/11/18 07:55 Tylenol - PO 650 mg Q6H PRN Administration PAIN LEVEL 7 - 10 Aspirin 325 mg 02/10/18 00:46 02/10/18 01:00 Asa - PO 02/10/18 00:47 325 mg ONCE ONE Administration Aspirin 81 mg 02/10/18 10:00 02/11/18 09:18 Ecotrin - PO 81 mg DAILY RUBIN Administration Atorvastatin Calcium 20 mg 02/10/18 22:00 02/10/18 21:29 Lipitor - PO 20 mg HS RUBIN Administration Clopidogrel Bisulfate 75 mg 02/10/18 10:00 02/11/18 09:17 Plavix - PO 75 mg DAILY RUBIN Administration Cyclobenzaprine HCl 5 mg 02/10/18 22:00 02/11/18 09:18 Flexeril - PO 5 mg BID RUBIN Administration Isosorbide Mononitrate 30 mg 02/10/18 14:00 02/11/18 09:18 Imdur - PO 30 mg DAILY RUBIN Administration Metoprolol Succinate 12.5 mg 02/10/18 10:00 02/11/18 09:18 Toprol Xl - PO Not Given DAILY RUBIN Morphine Sulfate 4 mg 02/09/18 23:37 02/10/18 00:05 Morphine Injection - IVPUSH 02/09/18 23:38 4 mg ONCE ONE Administration Morphine Sulfate 2 mg 02/10/18 08:05 02/10/18 08:05 Morphine Injection - IVPUSH 02/10/18 08:06 2 mg ONCE ONE Administration Nitroglycerin 0.5 inch 02/10/18 00:59 02/10/18 01:30 Nitro-Bid 2% Paste - TD 02/10/18 01:00 0.5 inch ONCE ONE Administration Nitroglycerin 0.4 mg 02/10/18 10:22 02/10/18 13:00 Nitrostat - SL 0.4 mg Q5M PRN Administration FOR CHEST PAIN Ondansetron HCl 4 mg 02/09/18 23:37 02/10/18 00:05 Zofran Injection IVPUSH 02/09/18 23:38 4 mg ONCE ONE Administration Medical Decision Making - Medical Decision Making 02/10/18 01:[address] Saenz. patient with chest pain. recommends nitropaste and serial troponins. patient to be admitted for further management of care. 02/10/18 01:08 CTA neck is pending. 02/10/18 01:14 dr. craft covering neurology paged 02/10/18 01:29 patient signed out to Kyler Niño NP/ Dr. harris 02/10/18 04:26 Dr. Craft returned page. recommends to continue plavix and aspirin. *DC/Admit/Observation/Transfer Diagnosis at time of Disposition: Chest pain Qualifiers: Chest pain type: other chest pain Qualified Code(s): R07.89 - Other chest pain Headache Qualifiers: Headache type: unspecified Headache chronicity pattern: acute headache Intractability: not intractable Qualified Code(s): R51 - Headache - Discharge Dispostion Disposition: HOME Condition at time of disposition: Fair Decision to Admit order: Yes - Prescriptions - Referrals - Patient Instructions - Post Discharge Activity NIH Stroke Scale - Last Known Well Date/Time & Onset Date Last Known Well: 02/09/18 Time Last Known Well: 08:30 - Initial Evaluation Level of consciousness: Alert Ask patient the month and their age: Answers both correctly Ask patient to open & close eyes; make fist and let go: Obeys both correctly Best gaze (horizontal eye movement): Normal Visual field testing: No visual field loss Facial paresis (Show teeth/raise eyebrows/close eyes tight): Normal symmetrical movement Motor Function: Left Arm: Normal Motor Function: Right Arm: No effort against gravity Motor Function: Left Leg: Normal (extends leg 30 degrees for 5 seconds without drift) Motor Function: Right Leg: Some effort against gravity Limb Ataxia: Present in one limb Sensory(Use pinprick test arms,legs,trunk,face/side to side): Normal Best language (Describe picture, name items, read sentences): No Aphasia Dysarthria (read several words): Normal articulation Extinction and Inattention: No abnormality - Total Score NIH Stroke Scale Score: 6
[2018-02-09] MEDS ORDERED: morphine CARPU-JECT 4 MG/1 ML DISP.SYRIN IVPUSH ONE (23:37)
[2018-02-09] MEDS ORDERED: ONDANSETRON 4 MG/2 ML VIAL IVPUSH ONE (23:37)
[2018-02-09 23:51] LABS: VENOUS PC02 57.3 mmHg (38-52); VENOUS PH 7.35 (7.32-7.42)
[2018-02-09 23:54] LABS: BASO % 2.3 % (0-2.0); EOS % 2.1 % (0-4.5); HEMATOCRIT 39.8 % (32.4-45.2); HEMOGLOBIN 13.9 GM/dL (10.7-15.3); LYMPH % 44.3 % (8-40); MCH 34.5 pg (25.7-33.7); MEAN CELL VOLUME 98.6 fl (80-96); MEAN PLT VOLUME 8.1 fl (7.5-11.1); MONO % 6.6 % (3.8-10.2); NEUT % 44.7 % (42.8-82.8); PLATELET COUNT 355 K/MM3 (134-434); RBC 4.03 M/mm3 (3.60-5.2); RDW 11.8 % (11.6-15.6)
[2018-02-10] MEDS ORDERED: ONDANSETRON 4 MG/2 ML VIAL ONE (00:05)
[2018-02-10] MEDS ORDERED: morphine SULFATE 4 MG/ML VIAL ONE (00:05)
[2018-02-10 00:11] LABS: INR 0.94 (0.83-1.09); PROTHROMBIN TIME (PATIENT) 10.6 SEC (9.7-13.0)
[2018-02-10 00:27] LABS: ALBUMIN 3.8 g/dl (3.4-5.0); ANION GAP 9 (8-16); CALCIUM 9.5 mg/dL (8.5-10.1); CHLORIDE 106 mmol/L (98-107); CHOLESTEROL 206 mg/dL (50-200); CO2 29 mmol/L (21-32); CREATININE 0.9 mg/dL (0.55-1.02); GLUCOSE,RANDOM 86 mg/dL (74-106); HDL CHOLESTEROL 60 mg/dL (40-60); MAGNESIUM 2.1 mg/dL (1.8-2.4); POTASSIUM 4.2 mmol/L (3.5-5.1); SGOT/AST 29 U/L (15-37); SGPT/ALT 70 U/L (12-78); SODIUM 144 mmol/L (136-145)
[2018-02-10 00:29] LABS: TRIGLYCERIDES 245 mg/dL (35-160)
[2018-02-10 00:41] LABS: ALK PHOS 78 U/L (45-117); BILIRUBIN,TOTAL 0.2 mg/dL (0.2-1.0); BLOOD UREA NITROGEN 17 mg/dL (7-18); N-TERMINAL BNP 60.09 pg/ml (5-125); TOT PROT 7.4 g/dl (6.4-8.2)
[2018-02-10] MEDS ORDERED: ASPIRIN 325 MG TABLET PO ONE (00:46)
[2018-02-10] MEDS ORDERED: ASPIRIN 325 MG ENTERIC COATED TABLET (FP) ONE (00:52)
[2018-02-10] MEDS ORDERED: NITROGLYCERIN 2% OINTMENT - 1GM PACKET TD ONE ×2 (00:59→02:01)
--- NOTE | 2018-02-10 04:32 | CON.NEURO ---
Consult Consult Specialty:: Venancio Referred by:: ER Reason for Consultation:: WEAKNESS - History of Present Illness History of Present Illness: 55 woman with weakness HPI spoke to the ER staff code eva was intiated not TPA candidate as patient got better - Past Medical History Cardio/Vascular: Yes: Mitral Insufficiency (mitral prolapse - echo was done "a number of years ago"). No: HTN, Hyperlipdemia Pulmonary: Yes: Other (smoker's cough). 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, done with program 7 -8 years ago, none since), Marijuana (twice weekly, last time 1 wk ago) - Smoking History Smoking history: Former smoker Have you smoked in the past 12 months: Yes Aproximately how many cigarettes per day: 10 If you are a former smoker, when did you quit?: 1 wk ago - Social History ADL: Independent Home Medications - Allergies Allergies/Adverse Reactions: Allergies Allergy/AdvReac Type Severity Reaction Status Date / Time No Known Allergies Allergy Verified 02/09/18 22:08 Family Disease History - Family Disease History Family Disease History: Diabetes: Grandparent (father's side), Father, Heart Disease: Mother (breast CA, HTN, mental health issues), CA: Mother, Other: Mother Physical Exam-Neuro Vital Signs: Vital Signs Temperature 97.6 F 02/09/18 22:08 Pulse Rate 62 02/09/18 22:08 Respiratory Rate 20 02/09/18 22:08 Blood Pressure 148/78 02/09/18 22:08 O2 Sat by Pulse Oximetry (%) 100 02/09/18 22:08 Labs: CBC, BMP 02/09/18 23:45 02/09/18 23:45 INR, PTT INR 0.94 (0.83-1.09) 02/09/18 23:45
--- NOTE | 2018-02-10 06:26 | HP ---
CHIEF COMPLAINT: chest pain PCP: Dany Spears HISTORY OF PRESENT ILLNESS: This is a 58 year old female with a recent hospitalization, cardiac cath and stent placement on 01/27/18 who presented to the ED with R sided weakness and pain with pins and needles in her right arm as well as headache, N/V and chest pain. All symptoms improved at time of exam. Chest pain resolved s/p nitropaste. ER course was notable for: (1) troponin <0.2 (2) ECG without ST/T wave changes (3) CT head neg Recent Travel: pt denies PAST MEDICAL HISTORY: Hepatitis C, remote IVDA, mitral valve prolapse, endometriosis, BrCA-right PAST SURGICAL HISTORY: right breast lumpectomy hysterectomy cholecystectomy 12/22/17 Social History: Smokin/2 PPD x 40y Alcohol: occasional Drugs: remote history Family History: mother alive with HTN, BrCA Father age 83, [place] brother s/p CABG age 55 sister s/p endometrial CA 1 other brother and 4 other sisters alive and well Allergies No Known Allergies Allergy (Verified 02/09/18 22:08) HOME MEDICATIONS: REVIEW OF SYSTEMS CONSTITUTIONAL: Absent: fever, chills, diaphoresis, generalized weakness, malaise, loss of appetite, weight change HEENT: Absent: rhinorrhea, nasal congestion, throat pain, throat swelling, difficulty swallowing, mouth swelling, ear pain, eye pain, visual changes CARDIOVASCULAR: Present: chest pain Absent: syncope, palpitations, irregular heart rate, lightheadedness, peripheral edema RESPIRATORY: Absent: cough, shortness of breath, dyspnea with exertion, orthopnea, wheezing, stridor, hemoptysis GASTROINTESTINAL: Present: nausea, vomiting Absent: abdominal pain, abdominal distension, diarrhea, constipation, melena, hematochezia GENITOURINARY: Absent: dysuria, frequency, urgency, hesitancy, hematuria, flank pain, genital pain MUSCULOSKELETAL: Absent: myalgia, arthralgia, joint swelling, back pain, neck pain SKIN: Absent: rash, itching, pallor HEMATOLOGIC/IMMUNOLOGIC: Absent: easy bleeding, easy bruising, lymphadenopathy, frequent infections ENDOCRINE: Absent: unexplained weight gain, unexplained weight loss, heat intolerance, cold intolerance NEUROLOGIC: Present: right sided weakness, pain, parasthesia, headache Absent: focal weakness or paresthesias, dizziness, unsteady gait, seizure, mental status changes, bladder or bowel incontinence PSYCHIATRIC: Absent: anxiety, depression, suicidal or homicidal ideation, hallucinations. PHYSICAL EXAMINATION Vital Signs - 24 hr 3 02/09/18 22:08 Temperature 97.6 F Pulse Rate 62 Respiratory 20 Rate Blood Pressure 148/78 O2 Sat by Pulse 100 Oximetry (%) GENERAL: Awake, alert, and fully oriented, in no acute distress. HEAD: Normal with no signs of trauma. EYES: Pupils equal, round and reactive to light, extraocular movements intact, sclera anicteric, conjunctiva clear. No lid lag. EARS, NOSE, THROAT: Ears normal, nares patent, oropharynx clear without exudates. Moist mucous membranes. NECK: Normal range of motion, supple without lymphadenopathy, JVD, or masses. LUNGS: Breath sounds equal, clear to auscultation bilaterally. No wheezes, and no crackles. No accessory muscle use. HEART: Regular rate and rhythm, normal S1 and S2 without murmur, rub or gallop. ABDOMEN: Soft, nontender, not distended, normoactive bowel sounds, no guarding, no rebound, no masses. No hepatomegaly or splenomegaly. MUSCULOSKELETAL: Normal range of motion at all joints. No bony deformities or tenderness. No CVA tenderness. UPPER EXTREMITIES: 2+ pulses, warm, well-perfused. No cyanosis. No clubbing. No peripheral edema. LOWER EXTREMITIES: 2+ pulses, warm, well-perfused. No calf tenderness. No peripheral edema. NEUROLOGICAL: Cranial nerves II-XII intact. Normal speech. Normal gait. PSYCHIATRIC: Cooperative. Good eye contact. Appropriate mood and affect. SKIN: Warm, dry, normal turgor, no rashes or lesions noted, normal capillary refill. Laboratory Results - last 24 hr 3 02/09/18 02/09/18 02/09/18 23:45 23:45 23:45 WBC 7.0 RBC 4.03 Hgb 13.9 Hct 39.8 MCV 98.6 H MCH 34.5 H MCHC 35.0 RDW 11.8 Plt Count 355 D MPV 8.1 Absolute Neuts (auto) 3.1 Neutrophils % 44.7 Lymphocytes % 44.3 H Monocytes % 6.6 Eosinophils % 2.1 Basophils % 2.3 H Nucleated RBC % 0 PT with INR 10.60 INR 0.94 VBG pH POC VBG pCO2 POC VBG pO2 Mixed VBG HCO3 Sodium 144 Potassium 4.2 Chloride 106 Carbon Dioxide 29 Anion Gap 9 BUN 17 Creatinine 0.9 Creat Clearance w eGFR > 60 Random Glucose 86 Lactic Acid Calcium 9.5 Magnesium 2.1 Total Bilirubin 0.2 AST 29 ALT 70 Alkaline Phosphatase 78 D Creatine Kinase 82 Troponin I < 0.02 B-Natriuretic Peptide 60.09 Total Protein 7.4 Albumin 3.8 Triglycerides Cholesterol Total LDL Cholesterol HDL Cholesterol 3 02/09/18 02/09/18 02/09/18 23:45 23:45 23:45 WBC RBC Hgb Hct MCV MCH MCHC RDW Plt Count MPV Absolute Neuts (auto) Neutrophils % Lymphocytes % Monocytes % Eosinophils % Basophils % Nucleated RBC % PT with INR INR VBG pH 7.35 POC VBG pCO2 57.3 H POC VBG pO2 25.0 L Mixed VBG HCO3 30.8 H Sodium Potassium Chloride Carbon Dioxide Anion Gap BUN Creatinine Creat Clearance w eGFR Random Glucose Lactic Acid 0.8 Calcium Magnesium Total Bilirubin AST ALT Alkaline Phosphatase Creatine Kinase Troponin I B-Natriuretic Peptide Total Protein Albumin Triglycerides 245 H Cholesterol 206 H Total LDL Cholesterol 107 H HDL Cholesterol 60 ECG Normal sinus rhythm nonspecific intraventricular block vent rate 66, QTC [address]/T wave changes Radiology Reports CT head Impression: No CT evidence of acute intracranial pathology. Reported By: Mike Ladd MD 02/09/18 [id number] CTA neck THIS IS A PRELIMINARY REPORT FROM [facility] FINDINGS: The aortic arch and its major branches are unremarkable. 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 Chest pain - given recent stent placement will admit, trend troponins - cardiology consult - cardiac monitoring - cont home ASA, plavix, lipitor, metoprolol headache, N/V - now resolved right sided weakness r/o TIA - neuro consult - consider MRI brain DVT PPX - deferred, expected LOS <48h FEN - tolerating po, resume diet after cardio consult if not having stress or going for cath - BMP in am - NPO for now Dispo: pt currently requires further observation for management of her emergent condition. Visit type - Emergency Visit Emergency Visit: Yes ED Registration Date: 02/09/18 Care time: The patient presented to the Emergency Department on the above date and was hospitalized for further evaluation of their emergent condition. - New Patient This patient is new to me today: Yes Date on this admission: 02/10/18 - Critical Care Critical Care patient: No Hospitalist Screening - Colonoscopy Questionnaire Colonoscopy Questionnaire: Colonoscopy Questionnaire - Patient: 50 - 75 years old and never had a screening colonoscopy: No History of colon or rectal polyps, or CA: No History of IBD, Crohn's disease or UC: No History of abdominal radiation therapy as a child: No - Relative: 1 with colon or rectal CA, or polyps at age 60 or younger: No Colon or rectal CA diagnosed at age 45 or younger: No Multiple relatives with colon or rectal CA: No - Outcome: Screening Result: Negative Screen
[2018-02-10] MEDS ORDERED: morphine CARPU-JECT 2 MG/1 ML DISP.SYRIN IVPUSH ONE (08:05)
[2018-02-10] MEDS ORDERED: MORPHINE SULFATE 2 MG/ML VIAL ONE (08:08)
[2018-02-10] MEDS: NITROGLYCERIN SUBLINGUAL 1/150 0.4 MG TAB SL PRN ×2 (09:05→13:00)
[2018-02-10 09:49] LABS: BASO % 1.6 % (0-2.0); EOS % 1.4 % (0-4.5); HEMATOCRIT 34.1 % (32.4-45.2); HEMOGLOBIN 12.1 GM/dL (10.7-15.3); LYMPH % 33.6 % (8-40); MCHC 35.5 g/dl (32.0-36.0); MEAN CELL VOLUME 98.5 fl (80-96); MEAN PLT VOLUME 7.9 fl (7.5-11.1); NEUT % 54.4 % (42.8-82.8); PLATELET COUNT 309 K/MM3 (134-434); RBC 3.46 M/mm3 (3.60-5.2); RDW 11.9 % (11.6-15.6); WHITE BLOOD COUNT 5.7 K/mm3 (4.0-10.0)
[2018-02-10] MEDS ORDERED: ASPIRIN COATED 81 MG TABLET.EC PO SCH (10:00)
[2018-02-10 10:22] LABS: ANION GAP 8 (8-16); BLOOD UREA NITROGEN 15 mg/dL (7-18); CALCIUM 9.4 mg/dL (8.5-10.1); CHLORIDE 105 mmol/L (98-107); CO2 28 mmol/L (21-32); CREATININE 0.8 mg/dL (0.55-1.02); MAGNESIUM 2.2 mg/dL (1.8-2.4); PHOSPHOROUS 3.7 mg/dL (2.5-4.9); POTASSIUM 4.1 mmol/L (3.5-5.1); SODIUM 141 mmol/L (136-145)
[2018-02-10 10:37] LABS: GLUCOSE,RANDOM 85 mg/dL (74-106)
--- NOTE | 2018-02-10 10:38 | PN ---
Progress Note, Physician Chief Complaint: Pt lying in bed in no acute distress. Reports she had tingling/right arm weakness yesterday along with nausea, sob, midsternal chest pain radiating to upper back. still has right sided weakness. 1300 informed by RN pt again had an episode of chest pain, relieved with nitro. ekg without acute changes. cardiology informed - Current Medication List Current Medications: Active Medications Aspirin (Ecotrin -) 81 mg PO DAILY RUBIN Atorvastatin Calcium (Lipitor -) 20 mg PO HS RUBIN Clopidogrel Bisulfate (Plavix -) 75 mg PO DAILY RUBIN Metoprolol Succinate (Toprol Xl -) 12.5 mg PO DAILY RUBIN Nitroglycerin (Nitrostat -) 0.4 mg SL Q5M PRN PRN Reason: FOR CHEST PAIN - Objective Vital Signs: Vital Signs Temperature 97.5 F L 02/10/18 06:27 Pulse Rate 53 L 02/10/18 06:27 Respiratory Rate 16 02/10/18 08:02 Blood Pressure 135/78 02/10/18 08:02 O2 Sat by Pulse Oximetry (%) 100 02/10/18 08:02 Constitutional: Yes: Well Nourished, No Distress, Calm Cardiovascular: Yes: WNL, Regular Rate and Rhythm. No: Gallop, Murmur Respiratory: Yes: WNL, Regular, CTA Bilaterally. No: Accessory Muscle Use, SOB on Exertion, Tachypnea Gastrointestinal: Yes: Normal Bowel Sounds, Soft, Tenderness (rlq, mild). No: Distention Genitourinary: Yes: WNL Musculoskeletal: Yes: WNL Extremities: Yes: WNL Edema: No Neurological: Yes: Alert, Oriented, Weakness (right sided) Psychiatric: Yes: WNL, Alert, Oriented Labs: CBC, BMP 02/10/18 09:30 02/10/18 09:30 INR, PTT INR 0.94 (0.83-1.09) 02/09/18 23:45 Problem List - Problems (1) Chest pain Assessment/Plan: pt reports intermittent midsternal chest pain/heaviness radiating to upper back , improved with nitro sl associated symptoms of nausea/sob s/p pci stent 01/27 ekg without acute changes, trop x3 neg suspect possibly vasospastic angina echo pending continue bb,statin,asa/plavix imdur started cardiology following- not likely ACS continue tele monitoring Code(s): R07.9 - CHEST PAIN, UNSPECIFIED Qualifiers: Chest pain type: other chest pain Qualified Code(s): R07.89 - Other chest pain; R07.8 - Other chest pain (2) Nausea Assessment/Plan: as above Code(s): R11.0 - NAUSEA (3) SOB (shortness of breath) Assessment/Plan: as above secondary to angina Code(s): R06.02 - SHORTNESS OF BREATH (4) Unilateral weakness Assessment/Plan: acute right sided weakness/ headache, tingling still has right sided weakness head ct neg mri brain pending neurology following Code(s): R53.1 - WEAKNESS (5) Hyperlipidemia Assessment/Plan: slightly elevated continue statin low dose per cardiology life style modifications Code(s): E78.5 - HYPERLIPIDEMIA, UNSPECIFIED (6) CAD (coronary artery disease) Assessment/Plan: s/p NSTEMI with placement of JOSE to LAD at [facility] 01/27/18 continue statin/asa/plavix cardiology following Code(s): I25.10 - ATHSCL HEART DISEASE OF [place] CORONARY ARTERY W/O ANG PCTRS Qualifiers: [place] vs. transplanted heart: [place] heart Associated angina: with stable angina (7) Chronic neck pain Assessment/Plan: acute on chronic radiating to arms, consistent with radiculopathy defer further imaging to neurology flexeril started monitor Code(s): M54.2 - CERVICALGIA; G89.29 - OTHER CHRONIC PAIN (8) Hepatitis C Assessment/Plan: lfts wnl here plan for outpt tx in place Code(s): B19.20 - UNSPECIFIED VIRAL HEPATITIS C WITHOUT HEPATIC COMA Qualifiers: Viral hepatitis chronicity: chronic Hepatic coma status: without hepatic coma Qualified Code(s): B18.2 - Chronic viral hepatitis C (9) Tobacco dependence due to cigarettes Assessment/Plan: per pt, stopped 1 week ago continue smoking cessation Code(s): F17.210 - NICOTINE DEPENDENCE, CIGARETTES, UNCOMPLICATED (10) History of drug abuse Assessment/Plan: in remission denies current use Code(s): Z87.898 - PERSONAL HISTORY OF OTHER SPECIFIED CONDITIONS (11) History of opioid abuse Assessment/Plan: remission denies current use Code(s): Z87.898 - PERSONAL HISTORY OF OTHER SPECIFIED CONDITIONS
--- NOTE | 2018-02-10 10:51 | CON.CARD ---
Cardiology Consult (text) - Consultation Consultation Note: Consult Consult Specialty:: Cardiology Reason for Consultation:: Chest pain, weakness, right arm pain - History of Present Illness Chief Complaint: chest pain History of Present Illness: 58F h/o CAD s/p NSTEMI with [place] [facility] [place], mitral valve prolapse, smoking half ppd, recent cholecystectomy 12/2017 with chest pain right side weakness and pins and needles. trop negative x 1, given nitro paste , morphine pain resolved. Was seen in clinic this week with Dr. Saenz, metoprolol dose was decreased patient was otherwise stable. - Past Medical History Cardio/Vascular: Yes: CAD s/p NSTEMI and stent, Mitral Insufficiency (mitral prolapse - echo was done "a number of years ago"). No: HTN, Hyperlipdemia Pulmonary: Yes: Other (smoker's cough). 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, done with program 7 -8 years ago, none since), Marijuana (twice weekly, last time 1 wk ago) - Smoking History Smoking history: Current every day smoker Have you smoked in the past 12 months: No Aproximately how many cigarettes per day: 10 - Social History ADL: Independent Home Medications - Allergies Allergies/Adverse Reactions: Allergies Allergy/AdvReac Type Severity Reaction Status Date / Time No Known Allergies Allergy Verified 01/25/18 21:13 Family Disease History - Family Disease History Family Disease History: Diabetes: Grandparent (father's side), Father, Heart Disease: Mother (breast CA, HTN, mental health issues), CA: Mother, Other: Mother Review of Systems - Review of Systems Constitutional: reports: Weakness Eyes: reports: No Symptoms HENT: reports: No Symptoms Neck: reports: No Symptoms Cardiovascular: reports: Chest Pain Respiratory: reports: No Symptoms Gastrointestinal: reports: Abdominal Pain Musculoskeletal: reports: Back Pain Pain Intensity: 7 - Risk Factors Known Risk Factors: Yes: Smoking Vital Signs: Vital Signs Period Temp Pulse Resp BP Sys/Connor Pulse Ox Last 24 Hr 97.5 F-98.1 F 53-62 16-20 123-148/74-78 2-100 Constitutional: Yes: Well Nourished, Anxious, Moderate Distress Eyes: Yes: WNL HENT: Yes: WNL Neck: Yes: WNL Respiratory: Yes: Regular Gastrointestinal: Yes: Soft, Tenderness Cardiovascular: Yes: Regular Rate and Rhythm JVD: No Carotid Bruit: No PMI: Non-Displaced Heart Sounds: Yes: S1, S2 Musculoskeletal: Yes: WNL Extremities: Yes: WNL Edema: No Integumentary: Yes: WNL Neurological: Yes: WNL - Other Data Laboratory Last Values WBC 5.7 K/mm3 (4.0-10.0) 02/10/18 09:30 RBC 3.46 M/mm3 (3.60-5.2) L 02/10/18 09:30 Hgb 12.1 GM/dL (10.7-15.3) 02/10/18 09:30 Hct 34.1 % (32.4-45.2) 02/10/18 09:30 MCV 98.5 fl (80-96) H 02/10/18 09:30 MCH 35.0 pg (25.7-33.7) H 02/10/18 09:30 MCHC 35.5 g/dl (32.0-36.0) 02/10/18 09:30 RDW 11.9 % (11.6-15.6) 02/10/18 09:30 Plt Count 309 K/MM3 (134-434) 02/10/18 09:30 MPV 7.9 fl (7.5-11.1) 02/10/18 09:30 Absolute Neuts (auto) 3.1 # 02/10/18 09:30 Neutrophils % 54.4 % (42.8-82.8) D 02/10/18 09:30 Lymphocytes % 33.6 % (8-40) D 02/10/18 09:30 Monocytes % 9.0 % (3.8-10.2) 02/10/18 09:30 Eosinophils % 1.4 % (0-4.5) 02/10/18 09:30 Basophils % 1.6 % (0-2.0) 02/10/18 09:30 Nucleated RBC % 0 % (0-0) 02/10/18 09:30 PT with INR 10.60 SEC (9.7-13.0) 02/09/18 23:45 INR 0.94 (0.83-1.09) 02/09/18 23:45 VBG pH 7.35 (7.32-7.42) 02/09/18 23:45 POC VBG pCO2 57.3 mmHg (38-52) H 02/09/18 23:45 POC VBG pO2 25.0 mmHg (28-48) L 02/09/18 23:45 Mixed VBG HCO3 30.8 meq/L (19-25) H 02/09/18 23:45 Sodium 141 mmol/L (136-145) 02/10/18 09:30 Potassium 4.1 mmol/L (3.5-5.1) 02/10/18 09:30 Chloride 105 mmol/L (98-107) 02/10/18 09:30 Carbon Dioxide 28 mmol/L (21-32) 02/10/18 09:30 Anion Gap 8 (8-16) 02/10/18 09:30 BUN 15 mg/dL (7-18) 02/10/18 09:30 Creatinine 0.8 mg/dL (0.55-1.02) 02/10/18 09:30 Creat Clearance w eGFR > 60 (>60) 02/10/18 09:30 Random Glucose 85 mg/dL (74-106) 02/10/18 09:30 Lactic Acid 0.8 mmol/L (0.0-2.0) 02/09/18 23:45 Calcium 9.4 mg/dL (8.5-10.1) 02/10/18 09:30 Phosphorus 3.7 mg/dL (2.5-4.9) 02/10/18 09:30 Magnesium 2.2 mg/dL (1.8-2.4) 02/10/18 09:30 Total Bilirubin 0.2 mg/dL (0.2-1.0) 02/09/18 23:45 AST 29 U/L (15-37) 02/09/18 23:45 ALT 70 U/L (12-78) 02/09/18 23:45 Alkaline Phosphatase 78 U/L (45-117) D 02/09/18 23:45 Creatine Kinase 63 IU/L (26-192) 02/10/18 09:30 Troponin I < 0.02 ng/ml (0.00-0.05) 02/10/18 09:30 B-Natriuretic Peptide 60.09 pg/ml (5-125) 02/09/18 23:45 Total Protein 7.4 g/dl (6.4-8.2) 02/09/18 23:45 Albumin 3.8 g/dl (3.4-5.0) 02/09/18 23:45 Triglycerides 245 mg/dL (35-160) H 02/09/18 23:45 Cholesterol 206 mg/dL (50-200) H 02/09/18 23:45 Total LDL Cholesterol 107 mg/dL (5-100) H 02/09/18 23:45 HDL Cholesterol 60 mg/dL (40-60) 02/09/18 23:45 Echo 01/2018 ([facility]): nl lv, rv tds (?rve and dec rv fcn), mild tr, rvsp 49 mmHg cath [place] [facility] [place]: sinus bradycardia, no ischemic changes, unchnaged from prior tele: sinus rhythm 58F h/o CAD s/p NSTEMI with placement [place] JOSE [place] [facility] [place], mitral valve prolapse, smoking half ppd, recent cholecystectomy 12/2017 with chest pain right side weakness and pins and needles chest pain - trop negative x 2 - atypical for angina, not consistent with ACS, in stent thrombosis. patient also complaining of back pain, headache, neck pain, clinical picture less likely cardiac etiology - may have had improvement with nitro paste although also received IV morphine - will start isosorbide mononitrate, remove nitro paste - echo ordered by team overnight, report pending CAD s/p NSTEMI, JOSE to LAD - cont aspirin, statin, clopidogrel, bb headache, weakness - neg for acute pathology - neuro consulted for concern for TIA - MRI brain ordered
[2018-02-10] MEDS: ASPIRIN COATED 81 MG TABLET.EC PO SCH (11:11)
[2018-02-10] MEDS: metoPROLOL SUCCINATE 25 MG TAB.SR.24H (FP) PO SCH (11:11)
[2018-02-10] MEDS: CLOPIDOGREL BISULFATE 75 MG TABLET (FP) PO SCH (11:11)
--- NOTE | 2018-02-10 11:18 | EKG ---
Test Reason : Blood Pressure : / mmHG Vent. Rate : 056 BPM Atrial Rate : 056 BPM P-R Int : 160 ms QRS Dur : 088 ms QT Int : 438 ms P-R-T Axes : 058 042 055 degrees QTc Int : 422 ms SINUS BRADYCARDIA OTHERWISE NORMAL ECG WHEN COMPARED WITH ECG OF 10-FEB-2018 00:51, NO SIGNIFICANT CHANGE WAS FOUND Confirmed by HILLARY GUARDADO MD ([id number]) on 02/10/2018 11:18:22 AM Referred By: Carol BRADFORD Confirmed By:HILLARY GUARDADO MD
--- NOTE | 2018-02-10 11:20 | EKG ---
Test Reason : Blood Pressure : / mmHG Vent. Rate : 058 BPM Atrial Rate : 058 BPM P-R Int : 176 ms QRS Dur : 088 ms QT Int : 416 ms P-R-T Axes : 078 072 076 degrees QTc Int : 408 ms POOR DATA QUALITY, INTERPRETATION MAY BE ADVERSELY AFFECTED SINUS BRADYCARDIA OTHERWISE NORMAL ECG WHEN COMPARED WITH ECG OF 26-JAN-2018 03:09, NO SIGNIFICANT CHANGE WAS FOUND Confirmed by GEO SAENZ, HILLARY ([id number]) on 02/10/2018 11:19:31 AM Referred By: Confirmed By:HILLARY GUARDADO MD
--- NOTE | 2018-02-10 11:52 | CON.NEURO ---
Consult Consult Specialty:: Venancio Referred by:: ER Reason for Consultation:: weakness - History of Present Illness History of Present Illness: this is a very pleasant 58-year-old right-handed female patient with present medical history significant for 11. Coronary artery disease. 2. Status post cardiac catheter. 3. MRI. 4. Breast cancer. 5. Hep C. 6. Osteoarthritis Patient presented to the hospital yesterday as an emergency stroke code was called. Patient presented with right arm weakness according to the patient started last night patient by time of arrival to the emergency room was better patient was not a candidate for TPA CAT scan of the head I reviewed it did not show any evidence of acute pathology. Patient was admitted to the cardiac floor for evaluation of questionable TIA. I evaluated the patient on telemetry since admission to the hospital patient has been complaining of neck pain and arm pain. Patient with a chronic history of neck pain. Patient claims that since she had a cholecystectomy at [facility] has she has been suffering with neck pain. Patient with no symptoms on the right leg. Patient was able to eat breakfast patient has mild headache and no nausea no vomiting. No worsening crescendo decrescendo symptoms Patient was on antiplatelet treatment I added aspirin to her regimen patient is on cholesterol medication. - History Source History Provided By: Patient Limitations to Obtaining History: No Limitations - Past Medical History Cardio/Vascular: Yes: Mitral Insufficiency (mitral prolapse - echo was done "a number of years ago"). No: HTN, Hyperlipdemia Pulmonary: Yes: Other (smoker's cough). 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, done with program 7 -8 years ago, none since), Marijuana (twice weekly, last time 1 wk ago) - Smoking History Smoking history: Former smoker Have you smoked in the past 12 months: Yes Aproximately how many cigarettes per day: 10 If you are a former smoker, when did you quit?: 1 wk ago - Social History ADL: Independent Home Medications - Allergies Allergies/Adverse Reactions: Allergies Allergy/AdvReac Type Severity Reaction Status Date / Time No Known Allergies Allergy Verified 02/09/18 22:08 - Home Medications Home Medications: Ambulatory Orders Aspirin [Ecotrin] 81 mg PO DAILY 02/10/18 Atorvastatin Ca [Lipitor] 10 mg PO HS 02/10/18 Clopidogrel Bisulfate [Clopidogrel] 75 mg PO DAILY 02/10/18 Metoprolol Succinate 12.5 mg PO DAILY 02/10/18 Family Disease History - Family Disease History Family History: Unable to Obtain Family Disease History: Diabetes: Grandparent (father's side), Father, Heart Disease: Mother (breast CA, HTN, mental health issues), CA: Mother, Other: Mother Review of Systems - Review of Systems Constitutional: reports: No Symptoms Eyes: reports: No Symptoms Musculoskeletal: reports: Back Pain, Muscle Weakness Neurological: reports: Headache, Incoordination, Numbness, Parasthesia Physical Exam-Neuro Vital Signs: Vital Signs Temperature 97.5 F L 02/10/18 06:27 Pulse Rate 53 L 02/10/18 06:27 Respiratory Rate 16 02/10/18 08:02 Blood Pressure 135/78 02/10/18 08:02 O2 Sat by Pulse Oximetry (%) 100 02/10/18 08:02 Constitutional: Yes: Well Nourished Neck: Yes: WNL Labs: CBC, BMP 02/10/18 09:30 02/10/18 09:30 INR, PTT INR 0.94 (0.83-1.09) 02/09/18 23:45 - Neuro Exam Level Of Consciousness: Yes: Oriented to Person, Oriented to Place, Oriented to Time Eyes: Yes: PERRLA Speech: WNL Dominant Hand: Right Cranial Nerves II-XII Intact: Yes Gag: Present DTR's: 1+ Left Bicep, 1+ Right Bicep, 1+ Right Tricep, 1+ Left Brachioradialis Babinski: Absent Response to light touch: Abnormal Response to pain prick: Abnormal Response to temperature: Abnormal Motor Strength: 3/5: Right Arm, 4/5: Left Arm, Left Leg, Right Leg Gait: Deferred Imaging - Results Ultrasound: Image Reviewed Problem List - Problems (1) Unilateral weakness Assessment/Plan: patient was not a candidate for thrombolysis due to improving symptoms Patient is on the cardiac floor with no cardiac arrhythmia patient is being followed by cardiology Patient with more pain in the neck area with parathesia stroke usually does not give you pain especially acutely patient with no Babinski sign on that side decreased sensation is more of a dermatomal distribution in the C6 radiculopathy Questionable TIA Rule out lacunar stroke left frontal Cervical radiculopathy 1.Follow-up with cardiology. 2. Rule out cardiac arrhythmia. 3. Continue the aspirin and Plavix. 4. Echocardiogram. 5. MRI of the brain with no contrast. 6. Flexeril 5 mg twice daily side effects of sedation were explained to the patient. 7. Will consider CAT scan of the cervical spine later Thank you very much for the kind referral i will follow the patient during the admission thank you Code(s): R53.1 - WEAKNESS
--- NOTE | 2018-02-10 12:47 | ECHO ---
Name: SHANTANU JUAN Exam:Adult Echocardiogram Study Date: 02/10/2018 09:30 AM Age: 58 yrs Reason For Study: CVA Height: 66 in Weight: 158 lb BSA: 1.8 m2 MMode/2D Measurements & Calculations IVSd: 0.79 cm Ao root diam: 3.1 cm LVIDd: 4.3 cm LA dimension: 3.2 cm LVIDs: 2.6 cm ACS: 1.8 cm LVPWd: 0.97 cm IVSs: 1.1 cm LVPWs: 1.1 cm EDV(Teich): 82.4 ml ESV(Teich): 23.8 ml Doppler Measurements & Calculations MV E max alexis: 55.0 cm/sec Ao V2 max: 137.7 cm/sec MV A max alexis: 49.1 cm/sec Ao max P.6 mmHg MV E/A: 1.1 Ao V2 mean: 96.1 cm/sec Ao mean P.0 mmHg Ao V2 VTI: 29.8 cm TR max alexis: 224.2 cm/sec Med Peak E' Alexis: 5.9 cm/sec TR max P.2 mmHg Med E/e': 9.3 Lat Peak E' Alexis: 12.3 cm/sec Lat E/e': 4.5 Procedure A two-dimensional transthoracic echocardiogram with color flow and Doppler was performed. Left Ventricle The left ventricular size, thickness and function are normal. The left ventricular ejection fraction is normal. The left ventricular wall motion is normal. Right Ventricle The right ventricle is normal in size and function. Atria Normal left and right atrial size and function. Mitral Valve There is mild mitral valve thickening. There is no mitral valve stenosis. There is trace to mild mitr al regurgitation. Tricuspid Valve There is mild tricuspid valve thickening. There is no tricuspid stenosis. There is mild to moderate t ricuspid regurgitation. Right ventricular systolic pressure is normal. Aortic Valve The aortic valve is not well visualized. No hemodynamically significant valvular aortic stenosis. No aortic regurgitation is present. Pulmonic Valve The pulmonic valve is not well visualized. There is no pulmonic valvular stenosis. There is no pulmon ic valvular regurgitation. Great Vessels The aortic root is normal size. Pericardium/Pleura There is no pericardial effusion. Interpretation Summary The left ventricular size, thickness and function are normal The left ventricular ejection fraction is normal. The left ventricular wall motion is normal. There is mild to moderate tricuspid regurgitation. Right ventricular systolic pressure is normal. There is trace to mild mitral regurgitation. MD Pedro Gaitan 02/10/2018 12:47 PM
--- NOTE | 2018-02-10 13:20 | EKG ---
Test Reason : Blood Pressure : / mmHG Vent. Rate : 066 BPM Atrial Rate : 066 BPM P-R Int : 164 ms QRS Dur : 130 ms QT Int : 418 ms P-R-T Axes : 062 060 050 degrees QTc Int : 438 ms NORMAL SINUS RHYTHM NON-SPECIFIC INTRA-VENTRICULAR CONDUCTION BLOCK ABNORMAL ECG WHEN COMPARED WITH ECG OF 26-JAN-2018 03:09, QRS DURATION HAS INCREASED T WAVE AMPLITUDE HAS INCREASED IN LATERAL LEADS Confirmed by GEO SAENZ, HILLARY ([id number]) on 02/10/2018 1:20:28 PM Referred By: Confirmed By:HILLARY GUARDADO MD
--- NOTE | 2018-02-10 14:32 | EKG ---
Test Reason : Blood Pressure : / mmHG Vent. Rate : 057 BPM Atrial Rate : 057 BPM P-R Int : 164 ms QRS Dur : 086 ms QT Int : 430 ms P-R-T Axes : 066 051 062 degrees QTc Int : 418 ms SINUS BRADYCARDIA OTHERWISE NORMAL ECG WHEN COMPARED WITH ECG OF 10-FEB-2018 09:16, NO SIGNIFICANT CHANGE WAS FOUND Confirmed by HILLARY GUARDADO MD ([id number]) on 02/10/2018 2:31:57 PM Referred By: Matthew MATSON Confirmed By:HILLARY GUARDADO MD
--- NOTE | 2018-02-10 14:32 | EKG ---
Test Reason : Blood Pressure : / mmHG Vent. Rate : 058 BPM Atrial Rate : 058 BPM P-R Int : 162 ms QRS Dur : 092 ms QT Int : 438 ms P-R-T Axes : 068 058 064 degrees QTc Int : 429 ms SINUS BRADYCARDIA OTHERWISE NORMAL ECG WHEN COMPARED WITH ECG OF 10-FEB-2018 00:51, NO SIGNIFICANT CHANGE WAS FOUND Confirmed by HILLARY GUARDADO MD ([id number]) on 02/10/2018 2:31:48 PM Referred By: Confirmed By:HILLARY GUARDADO MD
[2018-02-10] MEDS: ISOSORBIDE MONONITRATE 30 MG TAB.SR.24H (FP) PO SCH (16:13)
[2018-02-10] MEDS: CYCLOBENZAPRINE HCL 10 MG TABLET (FP) PO SCH (21:29)
[2018-02-10] MEDS ORDERED: ACETAMINOPHEN 325 MG TABLET (FP) PO PRN (21:48)
[2018-02-10] MEDS ORDERED: ATORVASTATIN CA 20 MG TABLET (FP) PO SCH (22:00)
[2018-02-11 07:17] LABS: CHOLESTEROL 174 mg/dL (50-200); HDL CHOLESTEROL 54 mg/dL (40-60); TRIGLYCERIDES 203 mg/dL (35-160)
[2018-02-11] MEDS: CLOPIDOGREL BISULFATE 75 MG TABLET (FP) PO SCH (09:17)
[2018-02-11] MEDS: ISOSORBIDE MONONITRATE 30 MG TAB.SR.24H (FP) PO SCH (09:18)
[2018-02-11] MEDS: ASPIRIN COATED 81 MG TABLET.EC PO SCH (09:18)
[2018-02-11] MEDS: metoPROLOL SUCCINATE 25 MG TAB.SR.24H (FP) PO SCH (09:18)
[2018-02-11] MEDS: CYCLOBENZAPRINE HCL 10 MG TABLET (FP) PO SCH (09:18)
[2018-02-11 10:02] VITALS: BP 124/74; PULSE 74; TEMP 97.6
--- NOTE | 2018-02-11 11:57 | DS ---
Physical Examination Vital Signs: Vital Signs Temperature 97.6 F 02/11/18 10:01 Pulse Rate 74 02/11/18 10:01 Respiratory Rate 17 02/11/18 10:01 Blood Pressure 124/74 02/11/18 10:01 O2 Sat by Pulse Oximetry (%) 99 02/11/18 10:02 Constitutional: Yes: Well Nourished, No Distress, Calm Cardiovascular: Yes: WNL, Regular Rate and Rhythm. No: Gallop, Murmur Respiratory: Yes: WNL, Regular, CTA Bilaterally. No: Accessory Muscle Use, Tachypnea, Wheezes Gastrointestinal: Yes: WNL, Normal Bowel Sounds, Soft. No: Distention, Tenderness Musculoskeletal: Yes: WNL Extremities: Yes: WNL Edema: No Neurological: Yes: Alert, Oriented, Other (mild right sided weakness) Psychiatric: Yes: WNL, Alert, Oriented Labs: CBC, BMP 02/10/18 09:30 02/10/18 09:30 Discharge Summary Reason For Visit: HEADACHE,WEAKNESS OF RIGHT SIDE OF BODY,CHEST PAIN Current Active Problems CAD (coronary artery disease) (Acute) Chest pain (Acute) Chronic neck pain (Acute) Headache (Acute) Hepatitis C (Acute) History of drug abuse (Acute) Hyperlipidemia (Acute) Nausea (Acute) SOB (shortness of breath) (Acute) Tobacco dependence due to cigarettes (Acute) Unilateral weakness (Acute) Hospital Course: is a 58 year old female admitted for evaluation of chest pain and right sided weakness. s/p NSTEMI, pci stent in December. ACS and CVA/TIA ruled out. Cardiology and neurology consult appreciated. Pt started on imdur. Pt's symptoms consistent with possible radiculopathy, flexeril started, pt reports relief with regimen. Pt also reports relief of nausea/sob, chest pain. still has numbness/tingling but tolerable. Pt advised to f/u with neurology outpt. Otherwise, pt is medically stable for discharge home Condition: Fair - Instructions Diet, Activity, Other Instructions: resume activity, diet flexeril twice a day tylenol prn pain control f/u as directed Referrals: Bryce Spears MD [Primary Care Provider] - 1 Week Venkata Craft MD [Staff Physician] - 1 Week Disposition: HOME - Home Medications Comprehensive Discharge Medication List: Ambulatory Orders Aspirin [Ecotrin] 81 mg PO DAILY 02/10/18 Atorvastatin Ca [Lipitor] 10 mg PO HS 02/10/18 Clopidogrel Bisulfate [Clopidogrel] 75 mg PO DAILY 02/10/18 Metoprolol Succinate 12.5 mg PO DAILY 02/10/18 Acetaminophen [Tylenol .Regular Strength -] 650 mg PO Q6H PRN tablet 02/11/18 Cyclobenzaprine HCl [Flexeril -] 5 mg PO BID #28 tablet 02/11/18 Isosorbide Mononitrate [Imdur -] 30 mg PO DAILY #30 tab.sr.24h 02/11/18
--- NOTE | 2018-02-11 11:57 | PN ---
Progress Note (short form) - Note Progress Note: s: no cp sob palps dizzy; has numbness in all 4 exts o: Vital Signs Period Temp Pulse Resp BP Sys/Connor Pulse Ox Last 24 Hr 97.0 F-98.0 F 51-76 14-18 104-124/57-74 99-100 nad no jvd rrr s1s2 no mrg ctabl nl eff aaox3 no le e/c/c no jaundice diaphoresis Current Medications Generic Name Dose Route Start Last Admin Trade Name Freq PRN Reason Stop Dose Admin Acetaminophen 650 mg 02/10/18 21:48 02/11/18 07:55 Tylenol - PO 650 mg Q6H PRN Administration PAIN LEVEL 7 - 10 Aspirin 81 mg 02/10/18 10:00 02/11/18 09:18 Ecotrin - PO 81 mg DAILY RUBIN Administration Atorvastatin Calcium 20 mg 02/10/18 22:00 02/10/18 21:29 Lipitor - PO 20 mg HS RUBIN Administration Clopidogrel Bisulfate 75 mg 02/10/18 10:00 02/11/18 09:17 Plavix - PO 75 mg DAILY RUBIN Administration Cyclobenzaprine HCl 5 mg 02/10/18 22:00 02/11/18 09:18 Flexeril - PO 5 mg BID RUBIN Administration Isosorbide Mononitrate 30 mg 02/10/18 14:00 02/11/18 09:18 Imdur - PO 30 mg DAILY RUBIN Administration Metoprolol Succinate 12.5 mg 02/10/18 10:00 02/11/18 09:18 Toprol Xl - PO Not Given DAILY RUBIN Nitroglycerin 0.4 mg 02/10/18 10:22 02/10/18 13:00 Nitrostat - SL 0.4 mg Q5M PRN Administration FOR CHEST PAIN CBC, BMP 02/10/18 09:30 02/10/18 09:30 [facility] lv, rv tds (?rve and dec rv fcn), mild tr, rvsp 49 mmHg echo 02/2018: nl lv/rv, mild-mod tr, nl rvsp cath 01/2018 JOSE to LAD at [facility] [place], EKG: sinus bradycardia, no ischemic changes, unchnaged from prior tele: sinus rhythm a/p: 58F h/o CAD s/p NSTEMI with placement of JOSE to LAD at [facility] [place] 01/27/18, mitral valve prolapse, smoking half ppd, recent cholecystectomy 12/2017 with chest pain right side weakness and pins and needles chest pain - trops negative - atypical for angina, not consistent with ACS, in stent thrombosis. patient also complaining of back pain, headache, neck pain, clinical picture less likely cardiac etiology - may have had improvement with nitro paste although also received IV morphine - will start isosorbide mononitrate, remove nitro paste - echo unremarkable CAD s/p NSTEMI, JOSE to LAD - cont aspirin, statin, clopidogrel, bb headache, weakness - neg for acute pathology - neuro consulted for concern for TIA - MRI brain unremarkable cardiac sood stable for dc
== END 2018-02-11 13:37 | disposition home or self-care (01) ==
LOC: JER 21:40 → JERBED 02-10 01:26 → J4W 02-10 08:41
PROVIDERS: ADMIT Internal Medicine; ATTEND Internal Medicine
PROC: 3E033NZ Introduction of Analgesics, Hypnotics, Sedatives into Peripheral Vein, Percutaneous Approach (ICD-10-PCS; principal; 2018-02-10)
PROC: 3E033GC Introduction of Other Therapeutic Substance into Peripheral Vein, Percutaneous Approach (ICD-10-PCS; 2018-02-10)
DX: R07.9 Chest pain, unspecified (principal); R00.1 Bradycardia, unspecified; I25.10 Atherosclerotic heart disease of native coronary artery without angina pectoris; I25.2 Old myocardial infarction; R51 Headache; R11.2 Nausea with vomiting, unspecified; R53.1 Weakness; I34.1 Nonrheumatic mitral (valve) prolapse; Z95.5 Presence of coronary angioplasty implant and graft; Z85.3 Personal history of malignant neoplasm of breast; Z87.891 Personal history of nicotine dependence; E78.5 Hyperlipidemia, unspecified; B18.2 Chronic viral hepatitis C
CPT/HCPCS: 36415; 70450-TC; 70498-TC; 70551-TC; 71046-TC-FY; 80048; 80053; 80061; 82465; 82550; 82803; 83605; 83718; 83721; 83735; 83880; 84100; 84478; 84484; 85025; 85610; 86038; 93005; 93010; 93306-TC; 96374; 96375; 97116-GP; 97161-GP; 99284-25; G0378

== ENCOUNTER 2018-06-10 16:28 | Emergency (ER) | payer OTHER ==
[2018-06-10 16:46] VITALS: BMI 27.4
--- NOTE | 2018-06-10 17:49 | PDOC ---
Attending Attestation - HPI HPI: 06/10/18 18:57 The patient is a 58 year old female with a significant past medical history of CAD, NSTEMI (01/2018), Mitral Prolapse, HLD, HEP-C, and bipolar disorder who presents to the ED for anxiety. Patient states she was at her psychiatrists office earlier today when she had 2 panic attacks. Patient reports two episodes of hyperventilating, chest pain, and loss of consciousness. EMS was called from the psychiatrists office to bring patient into the ED. Patient states she has not been on psychiatric medication for her bipolar disorder for 2 years but also notes she was put on abilify on 05/31/18. Patient s GI wants patient to be started for psych meds before he treats her. Patients Psychiatrist and GI doctor have in contact to try to control patients medication. Denies hallucinations. Denies suicidal ideation. Denies any other symptoms. - Physicial Exam PE: 06/10/18 18:57 Constitutional: Nervous, Anxious appearing, frustrated. Awake, alert, oriented. Head: Normocephalic. Atraumatic Eyes: PERRL. EOMI. Conjunctivae are not pale. ENT: Mucous membranes are moist and intact. Posterior pharynx without exudates or erythema. Uvula midline. Neck: Supple. Full ROM. No lymphadenopathy. Cardiovascular: Regular rate. Regular rhythm. S1, S2 regular. Distal pulses are 2+ and symmetric. Pulmonary/Chest: No evidence of respiratory distress. Clear to auscultation bilaterally No wheezing, rales or rhonchi. Abdominal: Soft and non-distended. There is no tenderness. No rebound, guarding or rigidity. No organomegaly. No palpable masses. Good bowel sounds. Back: No CVA tenderness. Musculoskeletal: No edema. No cyanosis. No clubbing. Full range of motion in all extremities. Nocalf tenderness. Radial/pedal pulses are intact and 2+ bilaterally Skin: Skin is warm and dry. No petechiae. No purpura. Neurological: Alert and oriented to person, place, and time. Cranial nerves II -XII are grossly intact. Normal speech. Strength is grossly symmetric. No sensory deficits. Psychiatric: Good eye contact. Normal interaction, affect and behavior. <Norma Chiang - Last Filed: 06/10/18 18:57> - Resident Resident Name: Alonso Larsen - ED Attending Attestation I have performed the following: I have examined & evaluated the patient, The case was reviewed & discussed with the resident, I agree w/resident's findings & plan, Exceptions are as noted - Critical Care Time Total Critical Care Time: 45 Critical Care Statement: The care of this patient involved high complexity decision making to prevent further life threatening deterioration of the patient 's condition and/or to evaluate & treat vital organ system(s) failure or risk of failure. - Medical Decision Making 06/10/18 17:49 I, Dr. Beth Wheeler, , attest that this document has been prepared under my direction and personally reviewed by me in its entirety. I further attest, that it accurately reflects all work, treatment, procedures and medical decision -making performed by me. 06/10/18 19:50 a/p: 58yo female with anxiety today after meeting with her psychologist -pt bouncing between the GI and psych for management of her bipolar and hep c -pt states hx of anxiety and bipolar and also hep c and her docs wont start her on meds until the other specialists starts meds -pt states she had cp/sob and felt similar to her NSTEMI in January -pt very anxious upon arrival -will send labs, ekg, cxr -will monitor and reassess -will give ativan 06/10/18 20:48 pt with elevated trop resident discussed the case with Dr. Nelson from Cards who requests heparin gtt will admit for NSTEMI 06/10/18 21:36 Dr. Farfan called back and requests pt be transferred to [facility] for Cath 06/10/18 21:43 repeat ekg : Sinus at 88, nl axis, nl interval, q waves septally that are age indeterminate, no acute st/t wave findings 06/10/18 22:01 pt accepted at [facility] by Dr. Harris <Beth Wheeler - Last Filed: 06/10/18 22:01> Attestations - Attestations 06/10/18 18:57 Documentation prepared by Norma Chiang, acting as medical billing coordinator for Beth Wheeler DO <Norma Chiang - Last Filed: 06/10/18 18:57>
[2018-06-10] MEDS ORDERED: LORazepam 2 MG/ML SDV VIAL ONE (18:24)
[2018-06-10 18:51] LABS: BASO % 0.2 % (0-2.0); EOS % 1.6 % (0-4.5); HEMOGLOBIN 13.2 GM/dL (10.7-15.3); LYMPH % 31.4 % (8-40); MCHC 35.6 g/dl (32.0-36.0); MEAN CELL VOLUME 98.4 fl (80-96); MEAN PLT VOLUME 7.8 fl (7.5-11.1); MONO % 7.3 % (3.8-10.2); NEUT % 59.5 % (42.8-82.8); PLATELET COUNT 332 K/MM3 (134-434); RBC 3.76 M/mm3 (3.60-5.2); RDW 12.2 % (11.6-15.6); WHITE BLOOD COUNT 8.9 K/mm3 (4.0-10.0)
[2018-06-10 19:58] LABS: ALBUMIN 3.2 g/dl (3.4-5.0); ALK PHOS 81 U/L (45-117); ANION GAP 8 MMOL/L (8-16); BILIRUBIN,TOTAL 0.2 mg/dL (0.2-1); BLOOD UREA NITROGEN 15 mg/dL (7-18); CALCIUM 8.6 mg/dL (8.5-10.1); CHLORIDE 108 mmol/L (98-107); CO2 24 mmol/L (21-32); CREATININE 0.9 mg/dL (0.55-1.3); GLUCOSE,RANDOM 93 mg/dL (74-106); POTASSIUM 3.9 mmol/L (3.5-5.1); SGOT/AST 45 U/L (15-37); SGPT/ALT 108 U/L (13-61); SODIUM 140 mmol/L (136-145); TOT PROT 6.7 g/dl (6.4-8.2)
--- NOTE | 2018-06-10 20:36 | PDOC ---
History of Present Illness - General Chief Complaint: Psychiatric Stated Complaint: ANXIETY Time Seen by Provider: 06/10/18 17:07 History Source: Patient Exam Limitations: No Limitations - History of Present Illness Initial Comments: 06/10/18 20:28 58 yo female pmh CAD, NSTEMI (January 2018), Hep C, bipolar and anxiety presents to the ED with CP. Patient TRISTIAN from Psychiatrist office after receiving distressing news of not being able to start medication for anxiety or bipolar due to abnormal LFTs. Pt states she was not on psych meds for the past 2 years (of note, was started on abilify 05/31/2018) and has been having increasing anxiety over the last 3 months. According to the pt, Psychiatry has not been helpful. GI has told her to start psych meds prior to medication for hep c incase of any interactions but Psychiatry will not start medications. While in the office after being told this news, she had a sudden onset of CP with 2 episodes of LOC. CP described as substernal, non radiating pressure. Of note, in 12/2017 pt had an NSTEMI with stent placement by Dr. Flanagan at [facility]. Denies SOB, F/C/N/V, abdominal pain, RODRIGUEZ Past History - Past Medical History Allergies/Adverse Reactions: Allergies Allergy/AdvReac Type Severity Reaction Status Date / Time No Known Allergies Allergy Verified 06/10/18 16:47 Home Medications: Ambulatory Orders Aspirin [Ecotrin] 81 mg PO DAILY 02/10/18 Atorvastatin Ca [Lipitor] 10 mg PO HS 02/10/18 Clopidogrel Bisulfate [Clopidogrel] 75 mg PO DAILY 02/10/18 Metoprolol Succinate 12.5 mg PO DAILY 02/10/18 Acetaminophen [Tylenol .Regular Strength -] 650 mg PO Q6H PRN tablet 02/11/18 Cyclobenzaprine HCl [Flexeril -] 5 mg PO BID #28 tablet 02/11/18 Isosorbide Mononitrate [Imdur -] 30 mg PO DAILY #30 tab.sr.24h 02/11/18 Polyethylene Glycol 3350 [Miralax (For Daily Use) -] 17 gm PO ONCE #1 bottle 03/30 Cancer: Yes (breast cancer r. lumpectomy) Cardiac Disorders: Yes (mitral valve prolapse, [place] 01/25/18) COPD: No - Surgical History Cardiac Surgery: Yes (Stent 01/27/18) Cholecystectomy: Yes (01/05/18) - Suicide/Smoking/Psychosocial Hx Smoking History: Never smoked Have you smoked in the past 12 months: Yes Number of Cigarettes Smoked Daily: 10 If you are a former smoker, when did you quit?: 01/2018 Information on smoking cessation initiated: No 'Breaking Loose' booklet given: 01/25/18 Hx Alcohol Use: No Drug/Substance Use Hx: No Substance Use Type: None Hx Substance Use Treatment: No *Physical Exam - Vital Signs Last Vital Signs Temp Pulse Resp BP Pulse Ox 97.2 F L 89 18 146/92 95 06/10/18 17:14 06/10/18 17:14 06/10/18 17:14 06/10/18 16:40 06/10/18 17:14 Moderate Sedation - Procedure Monitoring Vital Signs: Procedure Monitoring Vital Signs Temperature 97.2 F L 06/10/18 17:14 Pulse Rate 89 06/10/18 17:14 Respiratory Rate 18 06/10/18 17:14 Blood Pressure 146/92 06/10/18 16:40 O2 Sat by Pulse Oximetry (%) 95 06/10/18 17:14 ED Treatment Course - LABORATORY CBC & Chemistry Diagram: 06/10/18 18:40 06/10/18 18:40 - ADDITIONAL ORDERS Additional order review: Laboratory Results 06/10/18 18:40 Sodium 140 Potassium 3.9 Chloride 108 H Carbon Dioxide 24 Anion Gap 8 BUN 15 Creatinine 0.9 Creat Clearance w eGFR > 60 Random Glucose 93 Calcium 8.6 Total Bilirubin 0.2 AST 45 H ALT 108 H Alkaline Phosphatase 81 Creatine Kinase 98 Total Protein 6.7 Albumin 3.2 L 06/10/18 18:40 RBC 3.76 MCV 98.4 H MCHC 35.6 RDW 12.2 MPV 7.8 Neutrophils % 59.5 Lymphocytes % 31.4 Monocytes % 7.3 Eosinophils % 1.6 D Basophils % 0.2 - RADIOLOGY Radiology Studies Ordered: Category Date Time Status CHEST PA & LAT [RAD] Stat Radiology 06/10/18 17:31 Ordered Medical Decision Making - Medical Decision Making Pt noted to be very anxious on arrival and describes substernal chest pressure without radiation. 12 lead NSR, no ST changes. Given 1 mg Ativan IV and pt s/s mildly relieved. Labs show trop of 1.78 and determined to have an NSTEMI 06/10/18 22:[address] Nelson in Cardiology who spoke with Dr. Flanagan ([facility]) who would like the pt transferred to [facility] for Cath tmr morning. Dr. Nelson wants aspirin and heparin drip started. Spoke with Asael at the Transfer Center for [facility] who states Dr. Flanagan received sign out and is aware of the pt being transferred and has accepted her directly to the Tele floor. Transport is set up by transfer center *DC/Admit/Observation/Transfer Diagnosis at time of Disposition: NSTEMI (non-ST elevated myocardial infarction) - Discharge Dispostion Disposition: TRANSFER ACUTE CARE/OTHER HOSP Condition at time of disposition: Stable Decision to Admit order: No - Referrals Referrals: Bryce Spears MD [Primary Care Provider] - - Patient Instructions - Post Discharge Activity
[2018-06-10] MEDS ORDERED: ASPIRIN 81 MG CHEWABLE TABLETS PO ONE (20:37)
[2018-06-10] MEDS ORDERED: HEPARIN - 25,000 UNIT in SODIUM CHLORIDE 495 ML IV SCH ×2 (21:00→22:00)
[2018-06-10] MEDS ORDERED: HEPARIN NA (PORCINE) 5,000 UNITS/ML 1ML VIAL ONE (21:09)
[2018-06-10] MEDS ORDERED: ASPIRIN 81 MG CHEWABLE TABLETS ONE (21:09)
[2018-06-10] MEDS ORDERED: HEPARIN INFUSION - 25,000 UNITS/500 ML INFUS.BAG IVPB ONE (21:09)
[2018-06-10] MEDS ORDERED: HEPARIN NA (PORCINE) 5,000 UNITS/ML 1ML VIAL IVPUSH STA (21:53)
[2018-06-10 22:07] LABS: INR 0.96 (0.83-1.09); PROTHROMBIN TIME (PATIENT) 11.3 SEC (9.7-13.0)
[2018-06-10] MEDS ORDERED: ONDANSETRON 4 MG/2 ML VIAL IVPUSH ONE (23:53)
[2018-06-11 00:19] VITALS: BP 138/84; PULSE 85; TEMP 98.2
--- NOTE | 2018-06-11 10:15 | EKG ---
Test Reason : Blood Pressure : / mmHG Vent. Rate : 088 BPM Atrial Rate : 088 BPM P-R Int : 160 ms QRS Dur : 086 ms QT Int : 386 ms P-R-T Axes : 065 075 078 degrees QTc Int : 467 ms NORMAL SINUS RHYTHM Confirmed by PETR MEEHAN MD ([id number]) on 06/11/2018 10:15:03 AM Referred By: Confirmed By:PETR MEEHAN MD
== END 2018-06-11 00:47 | disposition short-term general hospital (02) ==
LOC: JER 16:28
PROC: 3E033GC Introduction of Other Therapeutic Substance into Peripheral Vein, Percutaneous Approach (ICD-10-PCS; principal; 2018-06-10)
PROC: 3E033GC Introduction of Other Therapeutic Substance into Peripheral Vein, Percutaneous Approach (ICD-10-PCS; 2018-06-10)
PROC: 3E033GC Introduction of Other Therapeutic Substance into Peripheral Vein, Percutaneous Approach (ICD-10-PCS; 2018-06-10)
DX: I21.4 Non-ST elevation (NSTEMI) myocardial infarction (principal); I10 Essential (primary) hypertension; Z95.5 Presence of coronary angioplasty implant and graft; F31.9 Bipolar disorder, unspecified; F41.9 Anxiety disorder, unspecified; B18.2 Chronic viral hepatitis C; I25.2 Old myocardial infarction; Z85.3 Personal history of malignant neoplasm of breast
CPT/HCPCS: 36415; 71045-TC-FY; 80053; 82550; 83735; 84484; 85025; 85610; 93005; 93010; 99285-25; J1644

== ENCOUNTER 2019-07-13 15:28 | Emergency (ER) | payer OTHER ==
[2019-07-13 15:39] VITALS: BMI 27.4
--- NOTE | 2019-07-13 16:00 | PDOC ---
History of Present Illness - General Chief Complaint: Headache Stated Complaint: HEADACHES Time Seen by Provider: 07/13/19 15:48 Past History - Past Medical History Allergies/Adverse Reactions: Allergies Allergy/AdvReac Type Severity Reaction Status Date / Time No Known Allergies Allergy Verified 07/13/19 15:39 Home Medications: Ambulatory Orders Aspirin [Ecotrin] 81 mg PO DAILY 02/10/18 Atorvastatin Ca [Lipitor] 10 mg PO HS 02/10/18 Metoprolol Succinate 25 mg PO DAILY 02/10/18 Cyclobenzaprine HCl [Flexeril -] 5 mg PO BID #28 tablet 02/11/18 Gabapentin 800 mg PO TID 07/13/19 Cancer: Yes (breast cancer r. lumpectomy) Cardiac Disorders: Yes (mitral valve prolapse, [place] 01/25/18) COPD: No - Surgical History Cardiac Surgery: Yes (Stent 01/27/18) Cholecystectomy: Yes (01/05/18) - Psycho Social/Smoking Cessation Hx Smoking History: Current every day smoker Have you smoked in the past 12 months: Yes Number of Cigarettes Smoked Daily: 10 If you are a former smoker, when did you quit?: 01/2018 Information on smoking cessation initiated: No 'Breaking Loose' booklet given: 01/25/18 Hx Alcohol Use: No Drug/Substance Use Hx: No Substance Use Type: None Hx Substance Use Treatment: No *Physical Exam - Vital Signs Last Vital Signs Temp Pulse Resp BP Pulse Ox 98.1 F 75 16 160/79 99 07/13/19 15:36 07/13/19 15:36 07/13/19 15:36 07/13/19 15:36 07/13/19 15:36 ED Treatment Course - LABORATORY CBC & Chemistry Diagram: 07/13/19 16:52 07/13/19 16:52 Discharge - Discharge Information Problems reviewed: Yes Clinical Impression/Diagnosis: Complicated migraine Condition: Stable Disposition: HOME - Admission No - Follow up/Referral Referrals: Bryce Spears MD [Primary Care Provider] - - Patient Discharge Instructions Patient Printed Discharge Instructions: DI for Migraine Additional Instructions: You were seen in the ER for severe migraine with weakness. We believe that this is a complex migraine. Your headache and weakness improved with medication. Your bloodwork and head CT were normal. Please follow up with your primary care provider as soon as possible, in the next 2-3 days. Please return to the ER if you develop weakness, fevers, urinary incontinence. Please see your neurologist as soon as possible, in the next 5-7 days. - Post Discharge Activity
[2019-07-13] MEDS ORDERED: METOCLOPRAMIDE HCL INJECTION 10 MG/2 ML VIAL IVPUSH ONE (16:52)
[2019-07-13] MEDS ORDERED: SODIUM CHLORIDE 1,000 ML IV ONE (16:52)
[2019-07-13] MEDS ORDERED: METOCLOPRAMIDE HCL INJECTION 10 MG/2 ML VIAL ONE (17:07)
[2019-07-13 17:12] LABS: BASO % 1.3 % (0-2.0); EOS % 0.8 % (0-4.5); HEMOGLOBIN 14.3 GM/dL (10.7-15.3); LYMPH % 35.5 % (8-40); MCH 34.6 pg (25.7-33.7); MCHC 34.1 g/dl (32.0-36.0); MEAN CELL VOLUME 101.7 fl (80-96); MEAN PLT VOLUME 8.8 fl (7.5-11.1); MONO % 6.3 % (3.8-10.2); NEUT % 56.1 % (42.8-82.8); PLATELET COUNT 374 K/MM3 (134-434); RBC 4.13 M/mm3 (3.60-5.2); RDW 12.8 % (11.6-15.6); WHITE BLOOD COUNT 7.8 K/mm3 (4.0-10.0)
[2019-07-13 17:50] LABS: ALBUMIN 3.4 g/dl (3.4-5.0); BILIRUBIN,TOTAL 0.2 mg/dL (0.2-1); BLOOD UREA NITROGEN 18.8 mg/dL (7-18); CALCIUM 9.4 mg/dL (8.5-10.1); CREATININE 0.9 mg/dL (0.55-1.3); MAGNESIUM 2.3 mg/dL (1.8-2.4); TOT PROT 6.7 g/dl (6.4-8.2)
[2019-07-13 18:03] VITALS: BP 149/73; PULSE 68; TEMP 98.4
--- NOTE | 2019-07-13 19:13 | PDOC ---
Documentation entered by Joy Laurent SCRIBE, acting as scribe for Luigi Aparicio MD. Luigi Aparicio MD: This documentation has been prepared by the Anastasiia landeros Nirvannie, SCRIBE, under my direction and personally reviewed by me in its entirety. I confirm that the documentation accurately reflects all work, treatment, procedures, and medical decision making performed by me. Attending Attestation - Resident Resident Name: BarbierenettaPetar - ED Attending Attestation I have performed the following: I have examined & evaluated the patient, The case was reviewed & discussed with the resident, I agree w/resident's findings & plan, Exceptions are as noted - HPI HPI: 07/13/19 17:01 59y F hx of headache (unclear diagnosis, but sees pain management is on meloxicam, gabapentin), presents with complint of 2 days of R frontal headache radiating to the back/scalp associated iwth a brief episode of tingling of LLE/ LUE. Pt also endorsed a brief episode of mid sternal chest pain afer arriving in th eED without associated sob, diaphoresis, n/v. Pt notes that bright lights makes her headache worse and her headache is familiar to previous headaches however the location of the headache is different. Pt also noted she had a bloody nose and ?blood from her L ear when she woek up 2 days ago but without any asociated sypmtoms such as hearing changes, ear pain, recent instrumentation. The patient denies any exertional nature to her chest pain. Physicial Exam: GENERAL: The patient is awake, alert, and fully oriented, Nontoxic - in no acute distress. HEAD: Normocephalic, atraumatic. EYES: extraocular movements intact, sclera anicteric, conjunctiva clear. ENT: Normal voice, Moist mucous membranes. NECK: Normal range of motion, supple LUNGS: Breath sounds equal, clear to auscultation bilaterally. No wheezes, no rhonchi, no rales. HEART: Regular rate and rhythm, normal S1 and S2 without murmur, rub or gallop. ABDOMEN: Soft, nontender, No guarding, no rebound. No CVA tenderness EXTREMITIES: Normal range of motion, no edema. NEUROLOGICAL: No facial assymetry, Normal speech, moving all 4 extremities spontaneously and symmetrically PSYCH: Normal mood, normal affect. SKIN: Warm, Dry, normal turgor, - Physicial Exam PE: 07/14/19 02:30 see above - Medical Decision Making 07/13/19 19:11 Suspect migraine headache The patient is feeling significantly improved after supportive management Her headache has resolved completely as well as her tingling. The patient also denies any chest pain at this time. The patient's EKG is unremarkable, blood work also unremarkable will obtain a second troponin at 2 hours. If the patient remains asymptomatic anticipate discharge with outpatient follow- up Heart Score/ECG Review - ECG Impressions Comment:: 07/13/19 19:12 Twelve-lead EKG was performed and reviewed by me. There is normal sinus rhythm with a normal rate. Rate of 62 The axis is normal. The intervals are normal. There is normal R wave progression There are no ST or T wave abnormalities. Impression: Normal twelve-lead EKG
--- NOTE | 2019-07-14 11:52 | EKG ---
Test Reason : Blood Pressure : / mmHG Vent. Rate : 062 BPM Atrial Rate : 062 BPM P-R Int : 166 ms QRS Dur : 086 ms QT Int : 404 ms P-R-T Axes : 060 070 068 degrees QTc Int : 410 ms NORMAL SINUS RHYTHM NORMAL ECG WHEN COMPARED WITH ECG OF 10-JUN-2018 20:58, QT HAS SHORTENED Confirmed by AIDAN TRAYLOR MD ([id number]) on 07/14/2019 11:52:24 AM Referred By: Confirmed By:AIDAN TRAYLOR MD
== END 2019-07-13 20:51 | disposition home or self-care (01) ==
LOC: JER 15:28
PROC: 3E033GC Introduction of Other Therapeutic Substance into Peripheral Vein, Percutaneous Approach (ICD-10-PCS; principal; 2019-07-13)
DX: G43.909 Migraine, unspecified, not intractable, without status migrainosus (principal)
CPT/HCPCS: 36415; 70450-TC; 71045-TC-FY; 80053; 82550; 83735; 84484; 85025; 93005; 93010; 99283-25; J7030

== ENCOUNTER 2021-01-18 17:55 | Inpatient (IN) | payer OTHER ==
[2021-01-18] MEDS ORDERED: ONDANSETRON 4 MG/2 ML VIAL IVPUSH ONE (18:35)
[2021-01-18] MEDS ORDERED: morphine SULFATE 4 MG/ML VIAL IVPUSH ONE (18:35)
[2021-01-18] MEDS ORDERED: morphine SULFATE 4 MG/ML VIAL ONE (18:52)
[2021-01-18] MEDS ORDERED: ONDANSETRON 4 MG/2 ML VIAL ONE (18:52)
[2021-01-18] MEDS ORDERED: HYDROmorphone HCL CARPU-JECT 2 MG/1 ML DISP.SYRIN IVPUSH ONE (19:32)
[2021-01-18 19:34] LABS: BASO % 1.2 % (0-2.0); HEMATOCRIT 39.5 % (32.4-45.2); HEMOGLOBIN 13.6 GM/dL (10.7-15.3); LYMPH % 7.4 % (8-40); MCH 32.7 pg (25.7-33.7); MCHC 34.4 g/dl (32.0-36.0); MEAN CELL VOLUME 95.1 fl (80-96); MEAN PLT VOLUME 8.4 fl (7.5-11.1); MONO % 0.4 % (3.8-10.2); PLATELET COUNT 344 10^3/uL (134-434); RBC 4.15 M/mm3 (3.60-5.2); RDW 12.7 % (11.6-15.6); WHITE BLOOD COUNT 9.1 K/mm3 (4.0-10.0)
[2021-01-18] MEDS ORDERED: HYDROmorphone HCl 2 MG/ML VIAL ONE (19:38)
[2021-01-18 19:39] LABS: INR 0.94 (0.83-1.09); PROTHROMBIN TIME (PATIENT) 11.6 SEC (9.7-13.0)
[2021-01-18 19:42] LABS: ACTIVATED PTT 31.7 SECONDS (25.2-36.5); CHLORIDE 108 mmol/L (98-107); SODIUM 138 mmol/L (136-145)
[2021-01-18 19:44] LABS: ALBUMIN 3.9 g/dl (3.4-5.0); ANION GAP 7 MMOL/L (8-16); BLOOD UREA NITROGEN 13.9 mg/dL (7-18); CALCIUM 9.5 mg/dL (8.5-10.1); CO2 23 mmol/L (21-32); GLUCOSE,RANDOM 121 mg/dL (74-106)
[2021-01-18 19:47] LABS: SGOT/AST 13 U/L (15-37); SGPT/ALT 17 U/L (13-61)
[2021-01-18 19:49] LABS: BILIRUBIN,TOTAL 0.2 mg/dL (0.2-1); TOT PROT 7.3 g/dl (6.4-8.2)
[2021-01-18 19:50] LABS: ALK PHOS 88 U/L (45-117)
[2021-01-18 20:36] LABS: ANISOCYTOSIS 0; MACROCYTOSIS 0; PLATELET ESTIMATE NORMAL
[2021-01-18] MEDS ORDERED: NITROGLYCERIN SUBLINGUAL 1/200 0.3 MG BTL SL ONE (21:47)
[2021-01-18] MEDS ORDERED: ASPIRIN 81 MG CHEWABLE TABLETS PO ONE (21:48)
[2021-01-18] MEDS ORDERED: NITROGLYCERIN SUBLINGUAL 1/150 0.4 MG TAB ONE (21:55)
[2021-01-18] MEDS ORDERED: ASPIRIN 81 MG CHEWABLE TABLETS ONE (21:55)
[2021-01-18] MEDS ORDERED: NITROGLYCERIN SUBLINGUAL 1/150 0.4 MG TAB SL ONE ×2 (22:00→22:41)
[2021-01-19] MEDS ORDERED: ACETAMINOPHEN 1000 MG/100 ML VIAL (NON FORMULARY) IVPB PRN ×2 (00:09→12:07)
[2021-01-19] MEDS ORDERED: KETOROLAC TROMETHAMINE 15 MG/ML VIAL IVPUSH PRN (00:09)
[2021-01-19] MEDS ORDERED: DOCUSATE SODIUM 100 MG CAPSULE (FP) PO PRN ×2 (00:11→12:07)
[2021-01-19] MEDS ORDERED: HYDROmorphone HCl 2 MG/ML VIAL ONE (00:18)
[2021-01-19] MEDS: HYDROmorphone HCl 2 MG/ML VIAL IVPUSH PRN ×2 (00:26→06:29)
[2021-01-19] MEDS ORDERED: LIDOCAINE PATCH REMOVAL MC SCH ×4 (01:58→22:00)
[2021-01-19] MEDS ORDERED: MELATONIN 5 MG TABLETS PO SCH ×2 (01:59→22:00)
[2021-01-19] MEDS ORDERED: LIDOCAINE 5% TOPICAL PATCH TP SCH ×2 (02:15→10:00)
[2021-01-19 02:20] VITALS: BMI 23.5
[2021-01-19 08:21] LABS: HEMATOCRIT 39.2 % (32.4-45.2); HEMOGLOBIN 13.6 GM/dL (10.7-15.3); MCH 33.3 pg (25.7-33.7); MCHC 34.7 g/dl (32.0-36.0); MEAN PLT VOLUME 8.8 fl (7.5-11.1); PLATELET COUNT 357 10^3/uL (134-434); RBC 4.09 M/mm3 (3.60-5.2); RDW 12.5 % (11.6-15.6); WHITE BLOOD COUNT 9.9 K/mm3 (4.0-10.0)
[2021-01-19 08:32] LABS: ALBUMIN 3.7 g/dl (3.4-5.0); BLOOD UREA NITROGEN 17.8 mg/dL (7-18); CALCIUM 9.4 mg/dL (8.5-10.1); MAGNESIUM 2.2 mg/dL (1.8-2.4)
[2021-01-19 08:36] LABS: CREATININE 0.9 mg/dL (0.55-1.3); PHOSPHOROUS 3.8 mg/dL (2.5-4.9)
[2021-01-19 08:37] LABS: BILIRUBIN,TOTAL 0.4 mg/dL (0.2-1); TOT PROT 7.4 g/dl (6.4-8.2)
[2021-01-19] MEDS ORDERED: ASPIRIN COATED 81 MG TABLET.EC PO SCH (10:00)
[2021-01-19] MEDS ORDERED: ENOXAPARIN NA (PORCINE) 40 MG/0.4 ML DISP.SYRIN SQ SCH (10:00)
[2021-01-19] MEDS ORDERED: metoPROLOL SUCCINATE 25 MG TAB.SR.24H (FP) PO SCH ×2 (10:00)
[2021-01-19] MEDS ORDERED: ALBUTEROL SO4 2.5/IPRATROPIUM 0.5 INH SOL 3 ML VIAL.NEB. NEB PRN (13:01)
[2021-01-19] MEDS: KETOROLAC TROMETHAMINE 15 MG/ML VIAL IVPUSH PRN ×2 (13:02→23:39)
[2021-01-19] MEDS ORDERED: ROSUVASTATIN CA 5 MG TABLET (FP) PO SCH ×2 (22:00)
[2021-01-20 07:31] LABS: HEMOGLOBIN 12.2 GM/dL (10.7-15.3); MEAN CELL VOLUME 97.1 fl (80-96); PLATELET COUNT 280 10^3/uL (134-434); RBC 3.71 M/mm3 (3.60-5.2); RDW 12.5 % (11.6-15.6); WHITE BLOOD COUNT 7.5 K/mm3 (4.0-10.0)
[2021-01-20 07:42] LABS: ALBUMIN 3.1 g/dl (3.4-5.0); CALCIUM 8.6 mg/dL (8.5-10.1)
[2021-01-20 07:43] LABS: BLOOD UREA NITROGEN 23.6 mg/dL (7-18); MAGNESIUM 2.1 mg/dL (1.8-2.4)
[2021-01-20 07:46] LABS: CREATININE 1.1 mg/dL (0.55-1.3); PHOSPHOROUS 3.3 mg/dL (2.5-4.9)
[2021-01-20 07:47] LABS: BILIRUBIN,TOTAL 0.3 mg/dL (0.2-1)
[2021-01-20] MEDS: KETOROLAC TROMETHAMINE 15 MG/ML VIAL IVPUSH PRN (08:35)
[2021-01-20] MEDS ORDERED: traMADol HCL 50 MG TABLET PO PRN (08:43)
[2021-01-20] MEDS ORDERED: ACETAMINOPHEN 325 MG TABLET (FP) PO PRN (08:45)
[2021-01-20] MEDS ORDERED: KETOROLAC TROMETHAMINE 15 MG/ML VIAL IVPUSH PRN (08:46)
[2021-01-20] MEDS ORDERED: ASPIRIN COATED 81 MG TABLET.EC PO SCH (10:00)
[2021-01-20] MEDS ORDERED: LIDOCAINE 5% TOPICAL PATCH TP SCH (10:00)
[2021-01-20] MEDS ORDERED: metoPROLOL SUCCINATE 25 MG TAB.SR.24H (FP) PO SCH (10:00)
[2021-01-20] MEDS ORDERED: ENOXAPARIN NA (PORCINE) 40 MG/0.4 ML DISP.SYRIN SQ SCH (10:00)
[2021-01-20 12:25] VITALS: BP 143/87; PULSE 50; TEMP 97.7
== END 2021-01-20 13:20 | disposition home or self-care (01) | DRG 347 ==
LOC: JER 17:55 → JERBED 22:41 → J4W 01-19 01:43 → J7W 01-19 12:07
PROVIDERS: ADMIT Hospitalist; ATTEND Student in an Organized Health Care Education/Training Program
DX: S22.080S Wedge compression fracture of T11-T12 vertebra, sequela (principal); I25.10 Atherosclerotic heart disease of native coronary artery without angina pectoris; R07.89 Other chest pain; I25.2 Old myocardial infarction; F31.9 Bipolar disorder, unspecified; Z85.3 Personal history of malignant neoplasm of breast; I10 Essential (primary) hypertension; K59.00 Constipation, unspecified; M54.2 Cervicalgia; R74.01 Elevation of levels of liver transaminase levels; N39.3 Stress incontinence (female) (male); M48.061 Spinal stenosis, lumbar region without neurogenic claudication; V89.2XXS Person injured in unspecified motor-vehicle accident, traffic, sequela
CPT/HCPCS: 36415; 71045-TC-FY; 71275-TC; 72125-TC; 72128-TC; 72131-TC; 74174-TC; 80053; 82550; 83735; 84100; 84484; 85025; 85027; 85610; 85730; 93005; 93010; 97116-GP; 97161-GP; 99285-25; C9803; J0131; Q9967; U0003; U0005

== ENCOUNTER 2021-01-23 15:17 | Emergency (ER) | payer OTHER ==
[2021-01-23 15:24] VITALS: BP 166/83; PULSE 63; TEMP 97.2; BMI 22.8
[2021-01-23] MEDS ORDERED: ONDANSETRON 4 MG TABLET PO ONE ×4 (18:06→18:55)
[2021-01-23 18:33] LABS: EPI CELLS 12 /uL (0-25.1); HYALINE CASTS 0 /uL (0-3.1); PH,URINE 5.5 (5.0-8.0); URINE APPEARANCE CLEAR; URINE BACTERIA 295 /uL (0-1359); URINE BILIRUBIN NEGATIVE (NEGATIVE); URINE COLOR YELLOW; URINE GLUCOSE (UA) NEGATIVE (NEGATIVE); URINE KETONE NEGATIVE (NEGATIVE); URINE LEUK ESTERASE TRACE (NEGATIVE); URINE NITRITE NEGATIVE (NEGATIVE); URINE PROTEIN NEGATIVE (NEGATIVE); URINE RBC 3 /uL (0-23.9); URINE UROBILINOGEN 0.2 mg/dL (0.2-1.0); URINE WBC 17 /uL (0-25.8)
== END 2021-01-23 19:02 | disposition home or self-care (01) ==
LOC: JER 15:17
DX: R07.89 Other chest pain (principal); M54.6 Pain in thoracic spine
CPT/HCPCS: 81003; 87086; 93005; 93010; 99284-25

== ENCOUNTER 2021-02-22 04:33 | Day surgery (SDC) | payer OTHER ==
[2021-02-05 17:34] VITALS: BMI 23.6
[~2021-02-22 04:33] MED LIST: BUPIVACAINE HCL/PF 0.75% 10 ML VIAL PNB ONE; IOHEXOL 180 MG/1 ML ML IT ONE; LIDOCAINE 1% P/F 10 MG/ML VIAL INF ONE
[2021-02-22] MEDS ORDERED: BUPIVACAINE HCL/PF 0.75% 10 ML VIAL ONE (07:31)
[2021-02-22] MEDS ORDERED: LIDOCAINE 1% P/F 10 MG/ML VIAL INF ONE (08:31)
[2021-02-22] MEDS ORDERED: BUPIVACAINE HCL/PF 0.75% 10 ML VIAL PNB ONE (08:31)
[2021-02-22] MEDS ORDERED: IOHEXOL 180 MG/1 ML ML IT ONE (08:31)
[2021-02-22 09:49] VITALS: BP 171/68; PULSE 58; TEMP 97.8
== END 2021-02-22 09:07 | disposition home or self-care (01) ==
LOC: JASU-SURG 04:33
PROVIDERS: ATTEND Pain Medicine Pain Medicine
PROC: BR16YZZ Fluoroscopy of Lumbar Facet Joint(s) using Other Contrast (ICD-10-PCS; 2021-02-22)
PROC: 3E0T3BZ Introduction of Anesthetic Agent into Peripheral Nerves and Plexi, Percutaneous Approach (ICD-10-PCS; principal; 2021-02-22 08:00)
DX: M47.816 Spondylosis without myelopathy or radiculopathy, lumbar region (principal)

== ENCOUNTER 2021-03-01 14:21 | Inpatient (IN) | payer OTHER ==
[2021-03-01] MEDS ORDERED: SODIUM CHLORIDE 1,000 ML IV STA (15:23)
[2021-03-01] MEDS ORDERED: ACETAMINOPHEN 1000 MG/100 ML VIAL (NON FORMULARY) IVPB ONE (15:23)
[2021-03-01] MEDS ORDERED: ACETAMINOPHEN INJECTION 100 ML IVPB ONE (16:02)
[2021-03-01 16:22] LABS: BASO % 1.2 % (0-2.0); HEMATOCRIT 38.7 % (32.4-45.2); HEMOGLOBIN 13.5 GM/dL (10.7-15.3); LYMPH % 32.1 % (8-40); MCH 33.5 pg (25.7-33.7); MCHC 34.8 g/dl (32.0-36.0); MEAN CELL VOLUME 96.3 fl (80-96); MONO % 6.2 % (3.8-10.2); NEUT % 59.5 % (42.8-82.8); PLATELET COUNT 322 10^3/uL (134-434); RBC 4.01 M/mm3 (3.60-5.2); RDW 12.5 % (11.6-15.6); WHITE BLOOD COUNT 7.8 K/mm3 (4.0-10.0)
[2021-03-01] MEDS ORDERED: ONDANSETRON 4 MG/2 ML VIAL IVPUSH ONE (16:29)
[2021-03-01 16:30] LABS: INR 0.94 (0.83-1.09); PROTHROMBIN TIME (PATIENT) 11.4 SEC (9.7-13.0)
[2021-03-01] MEDS ORDERED: ONDANSETRON 4 MG/2 ML VIAL ONE (16:30)
[2021-03-01 16:35] LABS: ALBUMIN 4.1 g/dl (3.4-5.0); BLOOD UREA NITROGEN 16.2 mg/dL (7-18); CALCIUM 9.4 mg/dL (8.5-10.1)
[2021-03-01 16:38] LABS: CREATININE 0.9 mg/dL (0.55-1.3)
[2021-03-01 16:40] LABS: BILIRUBIN,TOTAL 0.4 mg/dL (0.2-1); TOT PROT 7.5 g/dl (6.4-8.2)
[2021-03-01] MEDS ORDERED: morphine CARPU-JECT 4 MG/1 ML DISP.SYRIN IVPUSH ONE (17:01)
[2021-03-01] MEDS ORDERED: morphine SULFATE 4 MG/ML VIAL ONE (17:08)
[2021-03-01] MEDS ORDERED: diazePAM CARPU-JECT 10 MG/2 ML DISP.SYRIN IVPUSH ONE (18:53)
[2021-03-01] MEDS ORDERED: diazePAM 5 MG TABLET ONE (19:11)
[2021-03-01 19:18] LABS: URINE APPEARANCE CLEAR; URINE BILIRUBIN NEGATIVE (NEGATIVE); URINE COLOR YELLOW; URINE GLUCOSE (UA) NEGATIVE (NEGATIVE); URINE KETONE NEGATIVE (NEGATIVE); URINE LEUK ESTERASE NEGATIVE (NEGATIVE); URINE NITRITE NEGATIVE (NEGATIVE); URINE PROTEIN NEGATIVE (NEGATIVE); URINE UROBILINOGEN 0.2 mg/dL (0.2-1.0)
[2021-03-01 22:12] LABS: LIPASE 582 U/L (73-393)
[2021-03-01] MEDS ORDERED: ONDANSETRON 4 MG/2 ML VIAL IVPUSH PRN (23:43)
[2021-03-02] MEDS ORDERED: ACETAMINOPHEN INJECTION 100 ML IVPB ONE (01:08)
[2021-03-02] MEDS: LACTATED RINGERS SOLUTION 1,000 ML/1,000 ML INFUS.BAG IV SCH ×3 (01:12→21:43)
[2021-03-02] MEDS: ACETAMINOPHEN 1000 MG/100 ML VIAL (NON FORMULARY) IVPB PRN ×2 (01:12→21:48)
[2021-03-02] MEDS: MORPHINE SULFATE 2 MG/ML VIAL IVPUSH PRN ×3 (03:35→19:45)
[2021-03-02 07:31] VITALS: BMI 27.7
[2021-03-02] MEDS: NICOTINE 14 MG/24 HOURS TOPICAL PATCH TD SCH (09:22)
[2021-03-02] MEDS: ENOXAPARIN NA (PORCINE) 40 MG/0.4 ML DISP.SYRIN SQ SCH (09:22)
[2021-03-02] MEDS ORDERED: PNEUMOC 13-VAL CONJ-DIP CRM/PF 0.5 ML DISP.SYRIN IM ONE (10:00)
[2021-03-02 10:29] LABS: BASO % 1.4 % (0-2.0); EOS % 1.9 % (0-4.5); HEMATOCRIT 33.2 % (32.4-45.2); HEMOGLOBIN 11.7 GM/dL (10.7-15.3); LYMPH % 46.8 % (8-40); MCH 34.1 pg (25.7-33.7); MCHC 35.4 g/dl (32.0-36.0); MEAN CELL VOLUME 96.3 fl (80-96); MEAN PLT VOLUME 7.9 fl (7.5-11.1); MONO % 7.9 % (3.8-10.2); PLATELET COUNT 221 10^3/uL (134-434); RBC 3.45 M/mm3 (3.60-5.2); RDW 12.8 % (11.6-15.6)
[2021-03-02 10:55] LABS: BLOOD UREA NITROGEN 9.5 mg/dL (7-18); CALCIUM 8.3 mg/dL (8.5-10.1); MAGNESIUM 2.1 mg/dL (1.8-2.4)
[2021-03-02 10:58] LABS: CREATININE 0.7 mg/dL (0.55-1.3)
[2021-03-02 10:59] LABS: BILIRUBIN,TOTAL 0.3 mg/dL (0.2-1); PHOSPHOROUS 3.5 mg/dL (2.5-4.9)
[2021-03-02 11:19] LABS: ALBUMIN 2.9 g/dl (3.4-5.0); TOT PROT 5.2 g/dl (6.4-8.2)
[2021-03-02] MEDS: DULoxetine HCL 30 MG CAPSULE.DR PO SCH (11:57)
[2021-03-02] MEDS: ROSUVASTATIN CA 5 MG TABLET (FP) PO SCH (21:46)
[2021-03-03] MEDS: MORPHINE SULFATE 2 MG/ML VIAL IVPUSH PRN ×4 (05:15→21:32)
[2021-03-03] MEDS: NICOTINE 14 MG/24 HOURS TOPICAL PATCH TD SCH (09:33)
[2021-03-03] MEDS: ASPIRIN COATED 81 MG TABLET.EC PO SCH (09:33)
[2021-03-03] MEDS: ENOXAPARIN NA (PORCINE) 40 MG/0.4 ML DISP.SYRIN SQ SCH (09:33)
[2021-03-03] MEDS: metoPROLOL SUCCINATE 25 MG TAB.SR.24H (FP) PO SCH (09:33)
[2021-03-03] MEDS: DULoxetine HCL 30 MG CAPSULE.DR PO SCH (13:05)
[2021-03-03] MEDS: LACTATED RINGERS SOLUTION 1,000 ML/1,000 ML INFUS.BAG IV SCH ×2 (15:06→21:26)
[2021-03-03] MEDS: ROSUVASTATIN CA 5 MG TABLET (FP) PO SCH (21:25)
[2021-03-04] MEDS: MORPHINE SULFATE 2 MG/ML VIAL IVPUSH PRN ×5 (01:35→22:08)
[2021-03-04 08:30] LABS: BASO % 1.7 % (0-2.0); EOS % 2.1 % (0-4.5); HEMATOCRIT 32.4 % (32.4-45.2); HEMOGLOBIN 11.4 GM/dL (10.7-15.3); LYMPH % 58.1 % (8-40); MCHC 35.2 g/dl (32.0-36.0); MEAN CELL VOLUME 96.6 fl (80-96); MEAN PLT VOLUME 8.8 fl (7.5-11.1); MONO % 7.2 % (3.8-10.2); NEUT % 30.9 % (42.8-82.8); PLATELET COUNT 237 10^3/uL (134-434); RBC 3.36 M/mm3 (3.60-5.2); RDW 12.5 % (11.6-15.6); WHITE BLOOD COUNT 4.5 K/mm3 (4.0-10.0)
[2021-03-04 08:35] LABS: CALCIUM 8.7 mg/dL (8.5-10.1)
[2021-03-04 08:36] LABS: BLOOD UREA NITROGEN 3.9 mg/dL (7-18)
[2021-03-04 08:40] LABS: BILIRUBIN,TOTAL 0.3 mg/dL (0.2-1); MAGNESIUM 1.9 mg/dL (1.8-2.4); TOT PROT 5.5 g/dl (6.4-8.2)
[2021-03-04 08:42] LABS: CREATININE 0.8 mg/dL (0.55-1.3)
[2021-03-04 08:46] LABS: PHOSPHOROUS 3.7 mg/dL (2.5-4.9)
[2021-03-04] MEDS: DULoxetine HCL 30 MG CAPSULE.DR PO SCH (09:29)
[2021-03-04] MEDS: ASPIRIN COATED 81 MG TABLET.EC PO SCH (09:30)
[2021-03-04] MEDS: NICOTINE 14 MG/24 HOURS TOPICAL PATCH TD SCH (09:30)
[2021-03-04] MEDS: metoPROLOL SUCCINATE 25 MG TAB.SR.24H (FP) PO SCH (09:30)
[2021-03-04] MEDS: ENOXAPARIN NA (PORCINE) 40 MG/0.4 ML DISP.SYRIN SQ SCH (09:30)
[2021-03-04] MEDS ORDERED: PT OWN MED DRAWER 7, Y5N ONE (09:35)
[2021-03-04] MEDS: LACTATED RINGERS SOLUTION 1,000 ML/1,000 ML INFUS.BAG IV SCH (13:11)
[2021-03-04] MEDS: ROSUVASTATIN CA 5 MG TABLET (FP) PO SCH (22:08)
[2021-03-05] MEDS: MORPHINE SULFATE 2 MG/ML VIAL IVPUSH PRN ×5 (02:03→17:54)
[2021-03-05 07:44] LABS: HEMATOCRIT 33.3 % (32.4-45.2); HEMOGLOBIN 11.7 GM/dL (10.7-15.3); MCH 33.8 pg (25.7-33.7); MCHC 35.2 g/dl (32.0-36.0); MEAN CELL VOLUME 96.2 fl (80-96); MEAN PLT VOLUME 8.6 fl (7.5-11.1); PLATELET COUNT 243 10^3/uL (134-434); RBC 3.46 M/mm3 (3.60-5.2); RDW 12.3 % (11.6-15.6); WHITE BLOOD COUNT 4.9 K/mm3 (4.0-10.0)
[2021-03-05 08:07] LABS: CHLORIDE 108 mmol/L (98-107); SODIUM 141 mmol/L (136-145)
[2021-03-05 08:13] LABS: ANION GAP 6 MMOL/L (8-16); BLOOD UREA NITROGEN 8.8 mg/dL (7-18); CALCIUM 8.7 mg/dL (8.5-10.1); CO2 28 mmol/L (21-32)
[2021-03-05 08:14] LABS: GLUCOSE,RANDOM 73 mg/dL (74-106)
[2021-03-05 08:17] LABS: CREATININE 0.9 mg/dL (0.55-1.3)
[2021-03-05] MEDS: ENOXAPARIN NA (PORCINE) 40 MG/0.4 ML DISP.SYRIN SQ SCH (09:49)
[2021-03-05] MEDS: NICOTINE 14 MG/24 HOURS TOPICAL PATCH TD SCH (09:49)
[2021-03-05] MEDS: ASPIRIN COATED 81 MG TABLET.EC PO SCH (09:49)
[2021-03-05] MEDS: metoPROLOL SUCCINATE 25 MG TAB.SR.24H (FP) PO SCH (09:49)
[2021-03-05] MEDS: DULoxetine HCL 30 MG CAPSULE.DR PO SCH (09:50)
[2021-03-05 18:39] VITALS: BP 171/77; PULSE 59; TEMP 97.7
== END 2021-03-05 19:04 | disposition home or self-care (01) | DRG 861 ==
LOC: JER 14:21 → JERBED 21:07 → J4W 03-02 03:05
PROVIDERS: ADMIT Internal Medicine; ATTEND Internal Medicine
DX: G89.29 Other chronic pain (principal); R07.89 Other chest pain; I25.10 Atherosclerotic heart disease of native coronary artery without angina pectoris; I25.2 Old myocardial infarction; I34.1 Nonrheumatic mitral (valve) prolapse; R10.84 Generalized abdominal pain; F31.9 Bipolar disorder, unspecified; N28.1 Cyst of kidney, acquired; B18.2 Chronic viral hepatitis C; F17.210 Nicotine dependence, cigarettes, uncomplicated; R00.1 Bradycardia, unspecified; N80.9 Endometriosis, unspecified; M54.5 Low back pain; S22.089D Unspecified fracture of T11-T12 vertebra, subsequent encounter for fracture with routine healing; M79.7 Fibromyalgia; Z85.3 Personal history of malignant neoplasm of breast; Z78.0 Asymptomatic menopausal state
CPT/HCPCS: 36415; 72146-TC; 74177-TC; 76775-TC; 76830-TC; 76856-TC; 80048; 80053; 80061; 81003; 82550; 82962; 83605; 83690; 83735; 84100; 84443; 84484; 85025; 85027; 85610; 87086; 93005; 93010; 93306-TC; 97116-GP; 97162-GP; 99285-25; C9803; J0131; Q9967; U0003; U0005

== ENCOUNTER 2021-05-21 04:41 | Day surgery (SDC) | payer OTHER ==
[2021-05-08 13:36] VITALS: BMI 27.7
[~2021-05-21 04:41] MED LIST changes: +BUPIVACAINE HCL/PF 0.75% 10 ML VIAL NR ONE; -BUPIVACAINE HCL/PF 0.75% 10 ML VIAL PNB ONE; +IOHEXOL 180 MG/1 ML ML IJ ONE; -IOHEXOL 180 MG/1 ML ML IT ONE; -LIDOCAINE 1% P/F 10 MG/ML VIAL INF ONE; +LIDOCAINE HCL 1% PRESERVATIVE FREE - 30ML VIAL IJ ONE
[2021-05-21] MEDS ORDERED: BUPIVACAINE HCL/PF 0.75% 10 ML VIAL ONE (07:46)
[2021-05-21] MEDS ORDERED: LIDOCAINE HCL/PF 1% SDV 5ML VIAL ONE (07:46)
[2021-05-21] MEDS ORDERED: LIDOCAINE HCL 1% PRESERVATIVE FREE - 30ML VIAL IJ ONE (10:08)
[2021-05-21] MEDS ORDERED: IOHEXOL 180 MG/1 ML ML IJ ONE (10:11)
[2021-05-21] MEDS ORDERED: BUPIVACAINE HCL/PF 0.75% 10 ML VIAL NR ONE (10:11)
[2021-05-21 10:58] VITALS: BP 140/74; PULSE 65; TEMP 98.7
== END 2021-05-21 10:50 | disposition home or self-care (01) ==
LOC: JASU-SURG 04:41
PROVIDERS: ATTEND Pain Medicine Pain Medicine
PROC: BR16YZZ Fluoroscopy of Lumbar Facet Joint(s) using Other Contrast (ICD-10-PCS; 2021-05-21)
PROC: 3E0T3BZ Introduction of Anesthetic Agent into Peripheral Nerves and Plexi, Percutaneous Approach (ICD-10-PCS; principal; 2021-05-21 10:00)
DX: M47.816 Spondylosis without myelopathy or radiculopathy, lumbar region (principal)
CPT/HCPCS: 76000-TC-FY; C9803; U0003; U0005

== ENCOUNTER 2021-06-21 18:07 | Inpatient (IN) | payer OTHER ==
[2021-06-21 18:35] VITALS: BMI 30.4
[2021-06-21] MEDS ORDERED: LIDOCAINE 5% TOPICAL PATCH TP ONE (19:20)
[2021-06-21] MEDS ORDERED: ACETAMINOPHEN 1000 MG/100 ML VIAL IVPB ONE (19:20)
[2021-06-21] MEDS ORDERED: diazePAM CARPU-JECT 10 MG/2 ML DISP.SYRIN IVPUSH ONE (19:24)
[2021-06-21 19:52] LABS: INR 0.96 (0.83-1.09); PROTHROMBIN TIME (PATIENT) 11.2 SEC (9.7-13.0)
[2021-06-21 19:55] LABS: ACTIVATED PTT 29.2 SECONDS (25.2-36.5)
[2021-06-21] MEDS ORDERED: diazePAM CARPU-JECT 10 MG/2 ML DISP.SYRIN ONE (19:56)
[2021-06-21] MEDS ORDERED: LIDOCAINE 5% TOPICAL PATCH ONE (19:57)
[2021-06-21] MEDS ORDERED: ACETAMINOPHEN INJECTION 100 ML IVPB ONE (19:57)
[2021-06-21 19:59] LABS: CHLORIDE 108 mmol/L (98-107); SODIUM 140 mmol/L (136-145)
[2021-06-21 20:03] LABS: ALBUMIN 3.4 g/dl (3.4-5.0); ANION GAP 6 MMOL/L (8-16); BLOOD UREA NITROGEN 15.6 mg/dL (7-18); CALCIUM 9.1 mg/dL (8.5-10.1); CO2 26 mmol/L (21-32); GLUCOSE,RANDOM 94 mg/dL (74-106); MAGNESIUM 2.3 mg/dL (1.8-2.4)
[2021-06-21 20:05] LABS: CREATININE 0.9 mg/dL (0.55-1.3); SGOT/AST 75 U/L (15-37); SGPT/ALT 44 U/L (13-61)
[2021-06-21 20:06] LABS: BILIRUBIN,TOTAL 0.2 mg/dL (0.2-1); TOT PROT 6.7 g/dl (6.4-8.2)
[2021-06-21 20:08] LABS: ALK PHOS 115 U/L (45-117)
[2021-06-21 20:17] LABS: LIPASE 1808 U/L (73-393)
[2021-06-21 20:32] LABS: BASO % 0.9 % (0-2.0); EOS % 0.4 % (0-4.5); HEMATOCRIT 34.5 % (32.4-45.2); HEMOGLOBIN 11.8 GM/dL (10.7-15.3); LYMPH % 24.9 % (8-40); MCHC 34.2 g/dl (32.0-36.0); MEAN CELL VOLUME 99.3 fl (80-96); MEAN PLT VOLUME 8.3 fl (7.5-11.1); MONO % 6.8 % (3.8-10.2); PLATELET COUNT 252 10^3/uL (134-434); RBC 3.48 M/mm3 (3.60-5.2); RDW 12.3 % (11.6-15.6); WHITE BLOOD COUNT 9.6 K/mm3 (4.0-10.0)
[2021-06-21] MEDS ORDERED: ASPIRIN 81 MG CHEWABLE TABLETS PO ONE (20:44)
[2021-06-21] MEDS ORDERED: morphine CARPU-JECT 2 MG/1 ML DISP.SYRIN IVPUSH ONE (20:45)
[2021-06-21] MEDS: LACTATED RINGERS SOLUTION 1,000 ML/1,000 ML INFUS.BAG IV SCH (20:55)
[2021-06-21] MEDS ORDERED: morphine SULFATE 4 MG/ML VIAL ONE (20:57)
[2021-06-21] MEDS ORDERED: ASPIRIN 81 MG CHEWABLE TABLETS ONE (20:58)
[2021-06-21] MEDS ORDERED: morphine CARPU-JECT 2 MG/1 ML DISP.SYRIN IVPUSH PRN (22:24)
[2021-06-21] MEDS: LIDOCAINE PATCH REMOVAL MC SCH (23:29)
[2021-06-21] MEDS ORDERED: [UNRECOGNIZED DRUG - OTHER] SQ SCH (23:45)
[2021-06-22] MEDS: morphine SULFATE 4 MG/ML VIAL IVPUSH PRN ×4 (02:54→18:52)
[2021-06-22 06:54] LABS: BASO % 1.8 % (0-2.0); EOS % 1.8 % (0-4.5); HEMATOCRIT 36.2 % (32.4-45.2); HEMOGLOBIN 12.6 GM/dL (10.7-15.3); LYMPH % 47.1 % (8-40); MCH 34.4 pg (25.7-33.7); MCHC 34.9 g/dl (32.0-36.0); MEAN CELL VOLUME 98.7 fl (80-96); MEAN PLT VOLUME 8.1 fl (7.5-11.1); MONO % 7.3 % (3.8-10.2); PLATELET COUNT 249 10^3/uL (134-434); RBC 3.67 M/mm3 (3.60-5.2); RDW 11.9 % (11.6-15.6); WHITE BLOOD COUNT 6.1 K/mm3 (4.0-10.0)
[2021-06-22 07:08] LABS: CALCIUM 8.7 mg/dL (8.5-10.1)
[2021-06-22 07:09] LABS: ALBUMIN 2.8 g/dl (3.4-5.0); BLOOD UREA NITROGEN 13.6 mg/dL (7-18); MAGNESIUM 1.9 mg/dL (1.8-2.4)
[2021-06-22 07:12] LABS: CREATININE 0.8 mg/dL (0.55-1.3); PHOSPHOROUS 3.6 mg/dL (2.5-4.9)
[2021-06-22 07:14] LABS: BILIRUBIN,TOTAL 0.3 mg/dL (0.2-1)
[2021-06-22] MEDS ORDERED: busPIRone HCL 5 MG TABLET ONE (08:12)
[2021-06-22] MEDS ORDERED: ASPIRIN COATED 81 MG TABLET.EC ONE (08:12)
[2021-06-22] MEDS ORDERED: metoPROLOL SUCCINATE 25 MG TAB.SR.24H (FP) ONE (08:12)
[2021-06-22] MEDS ORDERED: ENOXAPARIN NA (PORCINE) 40 MG/0.4 ML DISP.SYRIN SQ ONE (08:13)
[2021-06-22] MEDS ORDERED: DULoxetine HCL 30 MG CAPSULE.DR PO ONE (08:13)
[2021-06-22] MEDS ORDERED: PATIENT'S OWN MEDICATION (NON-FORMULARY) (Buspirone Hcl [Buspar -] 15 MG Tablet) PO SCH (10:00)
[2021-06-22] MEDS: ASPIRIN COATED 81 MG TABLET.EC PO SCH (10:01)
[2021-06-22] MEDS: ENOXAPARIN NA (PORCINE) 40 MG/0.4 ML DISP.SYRIN SQ SCH (10:01)
[2021-06-22] MEDS: BUSPIRONE HCL 10 MG, BUSPIRONE HCL 5 MG PO SCH ×2 (10:01→22:40)
[2021-06-22] MEDS: DULoxetine HCL 30 MG CAPSULE.DR PO SCH (10:01)
[2021-06-22] MEDS: metoPROLOL SUCCINATE 25 MG TAB.SR.24H (FP) PO SCH (10:01)
[2021-06-22 16:42] LABS: COCAINE, UR NEGATIVE (NEGATIVE); METHADONE, UR NEGATIVE (NEGATIVE); PHENCYCLIDINE,URINE NEGATIVE (NEGATIVE); URINE BARBITURATES NEGATIVE (NEGATIVE); URINE BENZODIAZEPINES NEGATIVE (NEGATIVE)
[2021-06-22 16:48] LABS: OPIATES, URI POSITIVE (NEGATIVE); URINE AMPHETAMINES NEGATIVE (NEGATIVE)
[2021-06-22] MEDS ORDERED: ALBUTEROL SO4 HFA INHALER IH PRN (18:10)
[2021-06-22] MEDS ORDERED: morphine SULFATE 4 MG/ML VIAL ONE (18:50)
[2021-06-22] MEDS: DEXAMETHASONE 4 MG TABLET (FP) PO SCH (18:53)
[2021-06-22] MEDS ORDERED: DEXAMETHASONE 4 MG TABLET (FP) ONE (18:55)
[2021-06-22] MEDS: LIDOCAINE PATCH REMOVAL MC SCH (22:39)
[2021-06-22] MEDS: LACTATED RINGERS SOLUTION 1,000 ML/1,000 ML INFUS.BAG IV SCH (22:39)
[2021-06-22] MEDS: ROSUVASTATIN CA 5 MG TABLET (FP) PO SCH (22:40)
[2021-06-23] MEDS ORDERED: morphine SULFATE 4 MG/ML VIAL ONE ×2 (01:24→08:08)
[2021-06-23] MEDS: morphine SULFATE 4 MG/ML VIAL IVPUSH PRN ×4 (01:25→21:11)
[2021-06-23] MEDS ORDERED: busPIRone HCL 5 MG TABLET ONE ×2 (09:09→22:10)
[2021-06-23] MEDS ORDERED: DULoxetine HCL 30 MG CAPSULE.DR PO ONE (09:10)
[2021-06-23] MEDS ORDERED: DEXAMETHASONE 4 MG TABLET (FP) ONE (09:11)
[2021-06-23] MEDS ORDERED: ASPIRIN 81 MG CHEWABLE TABLETS ONE (09:11)
[2021-06-23] MEDS ORDERED: metoPROLOL SUCCINATE 25 MG TAB.SR.24H (FP) ONE (09:12)
[2021-06-23] MEDS ORDERED: ENOXAPARIN NA (PORCINE) 40 MG/0.4 ML DISP.SYRIN SQ ONE (09:12)
[2021-06-23] MEDS: metoPROLOL SUCCINATE 25 MG TAB.SR.24H (FP) PO SCH (10:00)
[2021-06-23] MEDS: ASPIRIN COATED 81 MG TABLET.EC PO SCH (10:00)
[2021-06-23] MEDS: DULoxetine HCL 30 MG CAPSULE.DR PO SCH (10:00)
[2021-06-23] MEDS: ENOXAPARIN NA (PORCINE) 40 MG/0.4 ML DISP.SYRIN SQ SCH (10:00)
[2021-06-23] MEDS: BUSPIRONE HCL 10 MG, BUSPIRONE HCL 5 MG PO SCH ×2 (10:00→22:35)
[2021-06-23] MEDS: DEXAMETHASONE 4 MG TABLET (FP) PO SCH (10:00)
[2021-06-23 10:35] LABS: BASO % 1.1 % (0-2.0); HEMATOCRIT 38.4 % (32.4-45.2); HEMOGLOBIN 13.5 GM/dL (10.7-15.3); LYMPH % 12.1 % (8-40); MCH 34.3 pg (25.7-33.7); MCHC 35.1 g/dl (32.0-36.0); MEAN CELL VOLUME 97.7 fl (80-96); MONO % 1.6 % (3.8-10.2); NEUT % 85.2 % (42.8-82.8); RBC 3.93 M/mm3 (3.60-5.2)
[2021-06-23 11:07] LABS: ALBUMIN 3.3 g/dl (3.4-5.0); BLOOD UREA NITROGEN 15.8 mg/dL (7-18); CALCIUM 9.3 mg/dL (8.5-10.1); CREATININE 0.9 mg/dL (0.55-1.3)
[2021-06-23 11:08] LABS: BILIRUBIN,TOTAL 0.5 mg/dL (0.2-1)
[2021-06-23 11:14] LABS: TOT PROT 6.9 g/dl (6.4-8.2)
[2021-06-23 11:20] LABS: PLATELET ESTIMATE ADEQUATE
[2021-06-23] MEDS ORDERED: ASCORBIC ACID 500 MG TABLET (FP) ONE (14:27)
[2021-06-23] MEDS: ASCORBIC ACID 500 MG TABLET (FP) PO SCH (14:28)
[2021-06-23] MEDS: LACTATED RINGERS SOLUTION 1,000 ML/1,000 ML INFUS.BAG IV SCH (21:10)
[2021-06-23] MEDS: ROSUVASTATIN CA 5 MG TABLET (FP) PO SCH (22:35)
[2021-06-23] MEDS: LIDOCAINE PATCH REMOVAL MC SCH (23:54)
[2021-06-24] MEDS ORDERED: oxyCODONE HCL 5 MG TABLET ONE ×2 (03:48→09:55)
[2021-06-24] MEDS: oxyCODONE HCL 5 MG TABLET PO PRN ×2 (03:52→10:17)
[2021-06-24] MEDS ORDERED: ASCORBIC ACID 500 MG TABLET (FP) ONE (09:54)
[2021-06-24] MEDS ORDERED: ASPIRIN COATED 81 MG TABLET.EC ONE (09:54)
[2021-06-24] MEDS ORDERED: DEXAMETHASONE 4 MG TABLET (FP) ONE (09:54)
[2021-06-24] MEDS ORDERED: ENOXAPARIN NA (PORCINE) 40 MG/0.4 ML DISP.SYRIN SQ ONE (09:55)
[2021-06-24] MEDS ORDERED: metoPROLOL SUCCINATE 25 MG TAB.SR.24H (FP) ONE (09:55)
[2021-06-24] MEDS ORDERED: DULoxetine HCL 30 MG CAPSULE.DR PO ONE (09:55)
[2021-06-24] MEDS: metoPROLOL SUCCINATE 25 MG TAB.SR.24H (FP) PO SCH (10:17)
[2021-06-24] MEDS: ASPIRIN COATED 81 MG TABLET.EC PO SCH (10:17)
[2021-06-24] MEDS: DULoxetine HCL 30 MG CAPSULE.DR PO SCH (10:17)
[2021-06-24] MEDS: DEXAMETHASONE 4 MG TABLET (FP) PO SCH (10:17)
[2021-06-24] MEDS: ENOXAPARIN NA (PORCINE) 40 MG/0.4 ML DISP.SYRIN SQ SCH (10:17)
[2021-06-24] MEDS: BUSPIRONE HCL 10 MG, BUSPIRONE HCL 5 MG PO SCH (10:17)
[2021-06-24] MEDS: ASCORBIC ACID 500 MG TABLET (FP) PO SCH (10:17)
[2021-06-24 10:23] VITALS: BP 152/62; PULSE 61; TEMP 98.2
== END 2021-06-24 11:07 | disposition home or self-care (01) | DRG 137 ==
LOC: JER 18:07 → JERBED 21:14
PROVIDERS: ATTEND Nurse Practitioner Family
DX: U07.1 COVID-19 (principal); F31.9 Bipolar disorder, unspecified; F17.210 Nicotine dependence, cigarettes, uncomplicated; I25.10 Atherosclerotic heart disease of native coronary artery without angina pectoris; I34.0 Nonrheumatic mitral (valve) insufficiency; M54.2 Cervicalgia; M54.9 Dorsalgia, unspecified; R07.9 Chest pain, unspecified
CPT/HCPCS: 36415; 71045-TC-FY; 72125-TC; 80053; 80307; 82550; 82728; 83605; 83615; 83690; 83735; 84100; 84478; 84484; 85025; 85379; 85610; 85730; 86140; 93005; 93010; 99285-25; C9803; J0131; U0003; U0005

== ENCOUNTER 2021-08-02 23:32 | Observation (INO) | payer OTHER ==
[2021-08-03] MEDS ORDERED: VALSARTAN 40 MG TABLET PO ONE (00:22)
[2021-08-03] MEDS ORDERED: LIDOCAINE 5% TOPICAL PATCH TP ONE (00:35)
[2021-08-03] MEDS ORDERED: GABAPENTIN 300 MG CAPSULE PO ONE (00:35)
[2021-08-03] MEDS ORDERED: KETOROLAC TROMETHAMINE 30 MG/1 ML VIAL IVPUSH ONE (00:35)
[2021-08-03 00:39] LABS: BASO % 1.2 % (0-2.0); EOS % 0.9 % (0-4.5); HEMATOCRIT 38.5 % (32.4-45.2); LYMPH % 40.5 % (8-40); MCHC 33.7 g/dl (32.0-36.0); MONO % 7.2 % (3.8-10.2); NEUT % 50.2 % (42.8-82.8); PLATELET COUNT 259 10^3/uL (134-434); RBC 3.93 M/mm3 (3.60-5.2); RDW 12.5 % (11.6-15.6); WHITE BLOOD COUNT 8.3 K/mm3 (4.0-10.0)
[2021-08-03] MEDS ORDERED: VALSARTAN 80 MG TABLET ONE (00:40)
[2021-08-03 00:47] LABS: INR 0.93 (0.83-1.09); PROTHROMBIN TIME (PATIENT) 10.7 SEC (9.7-13.0)
[2021-08-03 00:49] LABS: ACTIVATED PTT 29.9 SECONDS (25.2-36.5)
[2021-08-03 00:51] VITALS: BMI 29.2
[2021-08-03] MEDS ORDERED: GABAPENTIN 100 MG CAPSULE ONE (00:58)
[2021-08-03] MEDS ORDERED: KETOROLAC TROMETHAMINE 15 MG/ML VIAL ONE (00:58)
[2021-08-03] MEDS ORDERED: LIDOCAINE 5% TOPICAL PATCH ONE (00:58)
[2021-08-03 01:10] LABS: CHLORIDE 109 mmol/L (98-107); SODIUM 143 mmol/L (136-145)
[2021-08-03 01:12] LABS: CALCIUM 9.8 mg/dL (8.5-10.1)
[2021-08-03 01:13] LABS: ALBUMIN 3.3 g/dl (3.4-5.0); ANION GAP 4 MMOL/L (8-16); BLOOD UREA NITROGEN 14.1 mg/dL (7-18); CO2 31 mmol/L (21-32); GLUCOSE,RANDOM 93 mg/dL (74-106)
[2021-08-03 01:15] LABS: CREATININE 0.9 mg/dL (0.55-1.3)
[2021-08-03 01:16] LABS: SGOT/AST 9 U/L (15-37); SGPT/ALT 16 U/L (13-61)
[2021-08-03 01:17] LABS: BILIRUBIN,TOTAL 0.1 mg/dL (0.2-1); TOT PROT 6.1 g/dl (6.4-8.2)
[2021-08-03 01:18] LABS: ALK PHOS 67 U/L (45-117)
[2021-08-03 02:26] LABS: CHOLESTEROL 181 mg/dL (50-200); TRIGLYCERIDES 273 mg/dL (0-150)
[2021-08-03 02:28] LABS: LDL CHOLESTEROL (ONLY SJRH) 84 mg/dL (5-100)
[2021-08-03 02:29] LABS: HDL CHOLESTEROL 48 mg/dL (40-60)
[2021-08-03] MEDS ORDERED: ACETAMINOPHEN 1000 MG/100 ML BAG IVPB ONE (04:14)
[2021-08-03] MEDS ORDERED: KETOROLAC TROMETHAMINE 15 MG/ML VIAL IM PRN (04:44)
[2021-08-03] MEDS ORDERED: ACETAMINOPHEN 1000 MG/100 ML BAG IVPB PRN (07:00)
[2021-08-03 07:30] LABS: EOS % 1.1 % (0-4.5); HEMOGLOBIN 13.4 GM/dL (10.7-15.3); LYMPH % 41.6 % (8-40); MCH 33.4 pg (25.7-33.7); MCHC 33.4 g/dl (32.0-36.0); MEAN CELL VOLUME 100.1 fl (80-96); MEAN PLT VOLUME 8.1 fl (7.5-11.1); MONO % 8.2 % (3.8-10.2); NEUT % 48.1 % (42.8-82.8); PLATELET COUNT 252 10^3/uL (134-434); RBC 3.99 M/mm3 (3.60-5.2); RDW 12.5 % (11.6-15.6); WHITE BLOOD COUNT 7.5 K/mm3 (4.0-10.0)
[2021-08-03 07:53] LABS: CALCIUM 9.5 mg/dL (8.5-10.1)
[2021-08-03 07:54] LABS: BLOOD UREA NITROGEN 13.9 mg/dL (7-18)
[2021-08-03 07:57] LABS: CREATININE 0.8 mg/dL (0.55-1.3)
[2021-08-03 07:59] LABS: BILIRUBIN,TOTAL 0.3 mg/dL (0.2-1); TOT PROT 5.6 g/dl (6.4-8.2)
[2021-08-03] MEDS ORDERED: ENOXAPARIN NA (PORCINE) 40 MG/0.4 ML DISP.SYRIN SQ SCH (10:00)
[2021-08-03] MEDS ORDERED: ACETAMINOPHEN INJECTION 100 ML IVPB ONE (10:33)
[2021-08-03] MEDS ORDERED: amLODIPine BESYLATE 5 MG TABLET (FP) PO ONE (14:58)
[2021-08-03] MEDS ORDERED: amLODIPine BESYLATE 5 MG TABLET (FP) ONE (15:18)
[2021-08-03 17:58] VITALS: TEMP 98.5
[2021-08-03 17:59] VITALS: BP 165/59; PULSE 71
[2021-08-03] MEDS ORDERED: LIDOCAINE PATCH REMOVAL MC SCH (22:00)
== END 2021-08-03 14:57 | disposition home or self-care (01) ==
LOC: JER 23:32 → JERBED 08-03 01:14 → INTOOBSV 08-03 01:14 → UNDOADMOB 08-03 01:14 → JERBED 08-03 04:36
PROVIDERS: ADMIT Hospitalist
PROC: 3E033NZ Introduction of Analgesics, Hypnotics, Sedatives into Peripheral Vein, Percutaneous Approach (ICD-10-PCS; principal; 2021-08-03)
PROC: 3E023GC Introduction of Other Therapeutic Substance into Muscle, Percutaneous Approach (ICD-10-PCS; 2021-08-03)
PROC: 3E033NZ Introduction of Analgesics, Hypnotics, Sedatives into Peripheral Vein, Percutaneous Approach (ICD-10-PCS; 2021-08-03)
DX: I25.10 Atherosclerotic heart disease of native coronary artery without angina pectoris (principal); F31.9 Bipolar disorder, unspecified; I34.1 Nonrheumatic mitral (valve) prolapse; I11.9 Hypertensive heart disease without heart failure; B19.20 Unspecified viral hepatitis C without hepatic coma; Z85.3 Personal history of malignant neoplasm of breast; I25.2 Old myocardial infarction; E78.00 Pure hypercholesterolemia, unspecified; F80.81 Childhood onset fluency disorder; F17.210 Nicotine dependence, cigarettes, uncomplicated
CPT/HCPCS: 36415; 70450-TC; 70496-TC; 70498-TC; 71045-TC-FY; 80053; 80061; 82550; 83036; 84443; 84484; 85025; 85610; 85651; 85730; 86850; 86900; 86901; 87804; 93005; 93010; 96372; 96374; 96375; 96376; 97116-GP; 97162-GP; 99285-25; C9803; G0378; J0131; U0003; U0005

== ENCOUNTER 2021-09-30 18:29 | Observation (INO) | payer OTHER ==
[2021-09-30 18:52] VITALS: BMI 23.7
[2021-09-30 19:51] LABS: EOS % 1.6 % (0-4.5); HEMATOCRIT 36.5 % (32.4-45.2); HEMOGLOBIN 12.4 GM/dL (10.7-15.3); LYMPH % 42.3 % (8-40); MCH 34.1 pg (25.7-33.7); MCHC 34.1 g/dl (32.0-36.0); MEAN CELL VOLUME 100.2 fl (80-96); MEAN PLT VOLUME 7.6 fl (7.5-11.1); MONO % 7.2 % (3.8-10.2); NEUT % 47.9 % (42.8-82.8); PLATELET COUNT 298 10^3/uL (134-434); RBC 3.64 M/mm3 (3.60-5.2); WHITE BLOOD COUNT 8.1 K/mm3 (4.0-10.0)
[2021-09-30 20:03] LABS: INR 0.88 (0.83-1.09); PROTHROMBIN TIME (PATIENT) 10.1 SEC (9.7-13.0)
[2021-09-30 20:05] LABS: ACTIVATED PTT 30.4 SECONDS (25.2-36.5)
[2021-09-30 20:14] LABS: CALCIUM 9.6 mg/dL (8.5-10.1)
[2021-09-30 20:16] LABS: ALBUMIN 3.5 g/dl (3.4-5.0); BLOOD UREA NITROGEN 10.8 mg/dL (7-18)
[2021-09-30] MEDS ORDERED: ASPIRIN 81 MG CHEWABLE TABLETS PO ONE (20:17)
[2021-09-30 20:20] LABS: BILIRUBIN,TOTAL 0.1 mg/dL (0.2-1); TOT PROT 6.5 g/dl (6.4-8.2)
[2021-09-30] MEDS ORDERED: ASPIRIN 81 MG CHEWABLE TABLETS ONE (20:20)
[2021-09-30] MEDS ORDERED: ACETAMINOPHEN 1000 MG/100 ML BAG IVPB ONE (21:00)
[2021-09-30] MEDS ORDERED: ACETAMINOPHEN INJECTION 100 ML IVPB ONE (21:10)
[2021-10-01] MEDS ORDERED: LIDOCAINE 5% TOPICAL PATCH TP ONE (01:42)
[2021-10-01] MEDS ORDERED: CYCLOBENZAPRINE HCL 10 MG TABLET (FP) PO PRN (01:44)
[2021-10-01] MEDS ORDERED: clonazePAM 0.5 MG TABLET PO PRN (01:44)
[2021-10-01 07:20] LABS: BASO % 1.5 % (0-2.0); EOS % 2.3 % (0-4.5); HEMATOCRIT 38.9 % (32.4-45.2); HEMOGLOBIN 13.2 GM/dL (10.7-15.3); LYMPH % 50.5 % (8-40); MCH 33.6 pg (25.7-33.7); MCHC 33.9 g/dl (32.0-36.0); MEAN CELL VOLUME 99.1 fl (80-96); MEAN PLT VOLUME 8.1 fl (7.5-11.1); MONO % 6.4 % (3.8-10.2); NEUT % 39.3 % (42.8-82.8); PLATELET COUNT 278 10^3/uL (134-434); RBC 3.92 M/mm3 (3.60-5.2); RDW 12.6 % (11.6-15.6); WHITE BLOOD COUNT 6.2 K/mm3 (4.0-10.0)
[2021-10-01 07:40] LABS: ALBUMIN 3.3 g/dl (3.4-5.0)
[2021-10-01 07:41] LABS: BLOOD UREA NITROGEN 10.3 mg/dL (7-18); MAGNESIUM 2.3 mg/dL (1.8-2.4)
[2021-10-01 07:43] LABS: CREATININE 1.1 mg/dL (0.55-1.3)
[2021-10-01 07:45] LABS: BILIRUBIN,TOTAL 0.3 mg/dL (0.2-1); TOT PROT 6.5 g/dl (6.4-8.2)
[2021-10-01] MEDS ORDERED: DULoxetine HCL 30 MG CAPSULE.DR PO SCH (10:00)
[2021-10-01] MEDS ORDERED: ASPIRIN COATED 81 MG TABLET.EC PO SCH (10:00)
[2021-10-01] MEDS ORDERED: ENOXAPARIN NA (PORCINE) 40 MG/0.4 ML DISP.SYRIN SQ SCH (10:00)
[2021-10-01] MEDS ORDERED: amLODIPine BESYLATE 5 MG TABLET (FP) PO SCH (10:00)
[2021-10-01] MEDS ORDERED: ASPIRIN COATED 81 MG TABLET.EC ONE (10:29)
[2021-10-01] MEDS ORDERED: DULoxetine HCL 30 MG CAPSULE.DR PO ONE (10:29)
[2021-10-01] MEDS ORDERED: amLODIPine BESYLATE 5 MG TABLET (FP) ONE (10:29)
[2021-10-01] MEDS ORDERED: ENOXAPARIN NA (PORCINE) 40 MG/0.4 ML DISP.SYRIN SQ ONE (10:30)
[2021-10-01] MEDS ORDERED: DOCUSATE SODIUM 100 MG CAPSULE (FP) PO ONE ×2 (13:25→13:38)
[2021-10-01] MEDS ORDERED: ACETAMINOPHEN 1000 MG/100 ML BAG IVPB ONE (13:26)
[2021-10-01] MEDS ORDERED: POLYETHYLENE GLYCOL (HEALTHYLAX) 3350 17 GM PACKET PO SCH (13:30)
[2021-10-01] MEDS ORDERED: ACETAMINOPHEN INJECTION 100 ML IVPB ONE (13:38)
[2021-10-01] MEDS ORDERED: CYCLOBENZAPRINE HCL 10 MG TABLET (FP) ONE (13:38)
[2021-10-01] MEDS ORDERED: POLYETHYLENE GLYCOL (HEALTHYLAX) 3350 17 GM PACKET ONE (13:38)
[2021-10-01] MEDS ORDERED: CYCLOBENZAPRINE HCL 10 MG TABLET (FP) PO SCH (14:00)
[2021-10-01] MEDS ORDERED: GABAPENTIN 300 MG CAPSULE PO SCH (14:00)
[2021-10-01] MEDS ORDERED: CYCLOBENZAPRINE HCL 5 MG TABLET PO SCH (14:00)
[2021-10-01 16:04] VITALS: BP 142/86; PULSE 63; TEMP 97.9
[2021-10-01] MEDS ORDERED: LIDOCAINE PATCH REMOVAL MC SCH (22:00)
[2021-10-01] MEDS ORDERED: SENNOSIDES 8.6MG TABLET (FP) PO SCH (22:00)
[2021-10-01] MEDS ORDERED: ROSUVASTATIN CA 5 MG TABLET PO SCH (22:00)
== END 2021-10-01 16:19 | disposition home or self-care (01) ==
LOC: JER 18:29 → JERBED 23:11
PROVIDERS: ADMIT Hospitalist
PROC: 3E033NZ Introduction of Analgesics, Hypnotics, Sedatives into Peripheral Vein, Percutaneous Approach (ICD-10-PCS; principal; 2021-09-30)
PROC: 3E023GC Introduction of Other Therapeutic Substance into Muscle, Percutaneous Approach (ICD-10-PCS; 2021-09-30)
DX: I25.10 Atherosclerotic heart disease of native coronary artery without angina pectoris (principal); I11.9 Hypertensive heart disease without heart failure; F14.21 Cocaine dependence, in remission; F31.9 Bipolar disorder, unspecified; B19.20 Unspecified viral hepatitis C without hepatic coma; I25.2 Old myocardial infarction; I34.1 Nonrheumatic mitral (valve) prolapse; G43.909 Migraine, unspecified, not intractable, without status migrainosus; M54.2 Cervicalgia; N80.9 Endometriosis, unspecified; U07.1 COVID-19; N28.1 Cyst of kidney, acquired; Z87.891 Personal history of nicotine dependence
CPT/HCPCS: 36415; 71045-TC-FY; 71275-TC; 74174-TC; 80053; 83605; 83735; 84100; 84443; 84484; 85025; 85610; 85730; 93005; 93010; 93306-TC; 93880-TC; 96372; 96374; 96376; 99285-25; C9803-CS; G0378; U0003; U0005

== ENCOUNTER 2021-11-04 21:17 | Observation (INO) | payer OTHER ==
[2021-11-04] MEDS ORDERED: LIDOCAINE 5% TOPICAL PATCH TP ONE (22:15)
[2021-11-04] MEDS ORDERED: ACETAMINOPHEN 1000 MG/100 ML BAG IVPB ONE (22:15)
[2021-11-04] MEDS ORDERED: ACETAMINOPHEN INJECTION 100 ML IVPB ONE (22:32)
[2021-11-04] MEDS ORDERED: LIDOCAINE 5% TOPICAL PATCH ONE (22:32)
[2021-11-04 22:54] LABS: BASO % 1.1 % (0-2.0); EOS % 1.1 % (0-4.5); HEMATOCRIT 38.1 % (32.4-45.2); HEMOGLOBIN 13.1 GM/dL (10.7-15.3); MCH 34.3 pg (25.7-33.7); MCHC 34.3 g/dl (32.0-36.0); MEAN CELL VOLUME 100.2 fl (80-96); NEUT % 45.8 % (42.8-82.8); RBC 3.81 M/mm3 (3.60-5.2); RDW 12.5 % (11.6-15.6); WHITE BLOOD COUNT 7.1 K/mm3 (4.0-10.0)
[2021-11-04 23:12] LABS: PLATELET COUNT 28 10^3/uL (134-434)
[2021-11-04 23:14] LABS: ALBUMIN 3.3 g/dl (3.4-5.0); BLOOD UREA NITROGEN 17.8 mg/dL (7-18); CALCIUM 9.2 mg/dL (8.5-10.1)
[2021-11-04 23:18] LABS: CREATININE 1.2 mg/dL (0.55-1.3)
[2021-11-04 23:20] LABS: BILIRUBIN,TOTAL 0.3 mg/dL (0.2-1); TOT PROT 6.7 g/dl (6.4-8.2)
[2021-11-04] MEDS ORDERED: morphine CARPU-JECT 4 MG/1 ML DISP.SYRIN IVPUSH ONE (23:22)
[2021-11-04] MEDS ORDERED: morphine SULFATE 4 MG/ML VIAL ONE (23:26)
[2021-11-05] LABS: BASO % 0.6 % (0-2.0); EOS % 1.7 % (0-4.5); HEMATOCRIT 33.4 % (32.4-45.2); HEMOGLOBIN 11.6 GM/dL (10.7-15.3); LYMPH % 40.7 % (8-40); MCH 34.1 pg (25.7-33.7); MCHC 34.7 g/dl (32.0-36.0); MEAN CELL VOLUME 98.2 fl (80-96); MEAN PLT VOLUME 7.7 fl (7.5-11.1); MONO % 6.1 % (3.8-10.2); NEUT % 50.9 % (42.8-82.8); PLATELET COUNT 314 10^3/uL (134-434); RBC 3.41 M/mm3 (3.60-5.2); RDW 12.4 % (11.6-15.6); WHITE BLOOD COUNT 8.4 K/mm3 (4.0-10.0)
[2021-11-05 00:20] LABS: ALBUMIN 2.9 g/dl (3.4-5.0)
[2021-11-05 00:22] LABS: BLOOD UREA NITROGEN 18.2 mg/dL (7-18)
[2021-11-05 00:24] LABS: CREATININE 1.2 mg/dL (0.55-1.3)
[2021-11-05 00:26] LABS: BILIRUBIN,TOTAL 0.2 mg/dL (0.2-1)
[2021-11-05 03:00] LABS: PH,URINE 6.5 (5.0-8.0); URINE APPEARANCE CLEAR; URINE BILIRUBIN NEGATIVE (NEGATIVE); URINE COLOR YELLOW; URINE GLUCOSE (UA) NEGATIVE (NEGATIVE); URINE KETONE NEGATIVE (NEGATIVE); URINE LEUK ESTERASE NEGATIVE (NEGATIVE); URINE NITRITE NEGATIVE (NEGATIVE); URINE PROTEIN NEGATIVE (NEGATIVE); URINE UROBILINOGEN 0.2 mg/dL (0.2-1.0)
[2021-11-05] MEDS ORDERED: DOCUSATE SODIUM 100 MG CAPSULE (FP) PO ONE (03:20)
[2021-11-05] MEDS ORDERED: GLYCERIN 1 RECTAL SUPPOSITORY, ADULT RC ONE (03:20)
[2021-11-05 03:26] VITALS: BMI 23.6
[2021-11-05] MEDS ORDERED: ACETAMINOPHEN 1000 MG/100 ML BAG IVPB PRN (06:00)
[2021-11-05] MEDS: KETOROLAC TROMETHAMINE 15 MG/ML VIAL IVPUSH PRN ×2 (06:59→16:44)
[2021-11-05 08:13] LABS: HEMATOCRIT 32.9 % (32.4-45.2); HEMOGLOBIN 11.2 GM/dL (10.7-15.3); MCH 33.5 pg (25.7-33.7); MEAN CELL VOLUME 98.7 fl (80-96); PLATELET COUNT 302 10^3/uL (134-434); RBC 3.33 M/mm3 (3.60-5.2); RDW 12.1 % (11.6-15.6); WHITE BLOOD COUNT 7.2 K/mm3 (4.0-10.0)
[2021-11-05 08:27] LABS: MAGNESIUM 2.2 mg/dL (1.8-2.4)
[2021-11-05 08:29] LABS: BLOOD UREA NITROGEN 19.4 mg/dL (7-18)
[2021-11-05 08:31] LABS: CREATININE 1.2 mg/dL (0.55-1.3); PHOSPHOROUS 3.9 mg/dL (2.5-4.9)
[2021-11-05 08:33] LABS: BILIRUBIN,TOTAL 0.2 mg/dL (0.2-1); TOT PROT 5.7 g/dl (6.4-8.2)
[2021-11-05] MEDS ORDERED: METOCLOPRAMIDE HCL 10 MG TABLET (FP) PO ONE (09:00)
[2021-11-05] MEDS ORDERED: POLYETHYLENE GLYCOL (HEALTHYLAX) 3350 17 GM PACKET PO SCH (10:00)
[2021-11-05] MEDS ORDERED: clonazePAM 0.5 MG TABLET PO PRN (12:57)
[2021-11-05] MEDS: GABAPENTIN 300 MG CAPSULE PO SCH ×2 (14:03→21:31)
[2021-11-05] MEDS: SERTRALINE HCL 50 MG TABLET (FP) PO SCH (14:03)
[2021-11-05] MEDS: CYCLOBENZAPRINE HCL 10 MG TABLET (FP) PO PRN ×2 (14:04→21:31)
[2021-11-05] MEDS: SENNOSIDES 8.6MG TABLET (FP) PO SCH ×2 (17:16→21:31)
[2021-11-05] MEDS ORDERED: QUEtiapine FUMARATE 50 MG TABLET ONE (21:15)
[2021-11-05] MEDS: POLYETHYLENE GLYCOL (HEALTHYLAX) 3350 17 GM PACKET PO SCH (21:31)
[2021-11-05] MEDS ORDERED: QUEtiapine FUMARATE 100 MG TABLET (FP) PO SCH (22:00)
[2021-11-05] MEDS ORDERED: LIDOCAINE PATCH REMOVAL MC ONE (22:00)
[2021-11-06] MEDS: GABAPENTIN 300 MG CAPSULE PO SCH ×2 (05:43→14:57)
[2021-11-06] MEDS: KETOROLAC TROMETHAMINE 15 MG/ML VIAL IVPUSH PRN (09:13)
[2021-11-06] MEDS: SENNOSIDES 8.6MG TABLET (FP) PO SCH (09:14)
[2021-11-06] MEDS: SERTRALINE HCL 50 MG TABLET (FP) PO SCH (09:14)
[2021-11-06] MEDS: POLYETHYLENE GLYCOL (HEALTHYLAX) 3350 17 GM PACKET PO SCH (09:15)
[2021-11-06] MEDS ORDERED: Methylnaltrexone Bromide 12 MG/0.6 ML KIT SQ ONE (10:00)
[2021-11-06] MEDS ORDERED: LOSARTAN POTASSIUM 25 MG TABLET PO SCH (10:00)
[2021-11-06 14:27] VITALS: BP 125/67; PULSE 66; TEMP 98.4
== END 2021-11-06 16:30 | disposition home or self-care (01) ==
LOC: JER 21:17 → JERBED 11-05 02:15 → INTOOBSV 11-05 02:15 → UNDOADMOB 11-05 02:15 → JERBED 11-05 03:14 → J7W 11-05 03:14
PROVIDERS: ADMIT Internal Medicine
PROC: 3E033NZ Introduction of Analgesics, Hypnotics, Sedatives into Peripheral Vein, Percutaneous Approach (ICD-10-PCS; principal; 2021-11-05)
PROC: 3E0333Z Introduction of Anti-inflammatory into Peripheral Vein, Percutaneous Approach (ICD-10-PCS; 2021-11-05)
PROC: 3E023GC Introduction of Other Therapeutic Substance into Muscle, Percutaneous Approach (ICD-10-PCS; 2021-11-05)
PROC: 3E033NZ Introduction of Analgesics, Hypnotics, Sedatives into Peripheral Vein, Percutaneous Approach (ICD-10-PCS; 2021-11-05)
DX: M54.89 Other dorsalgia (principal); F31.9 Bipolar disorder, unspecified; B19.20 Unspecified viral hepatitis C without hepatic coma; I25.10 Atherosclerotic heart disease of native coronary artery without angina pectoris; N80.9 Endometriosis, unspecified; I34.1 Nonrheumatic mitral (valve) prolapse; I25.2 Old myocardial infarction; Z95.5 Presence of coronary angioplasty implant and graft; E78.00 Pure hypercholesterolemia, unspecified; N28.1 Cyst of kidney, acquired; S22.9XXA Fracture of bony thorax, part unspecified, initial encounter for closed fracture; R26.2 Difficulty in walking, not elsewhere classified; M54.16 Radiculopathy, lumbar region; K59.00 Constipation, unspecified; M54.2 Cervicalgia; M19.90 Unspecified osteoarthritis, unspecified site; R05.8 Other specified cough; F11.21 Opioid dependence, in remission; Z29.8 Encounter for other specified prophylactic measures; F17.210 Nicotine dependence, cigarettes, uncomplicated; W18.39XA Other fall on same level, initial encounter; Y93.9 Activity, unspecified; Y92.9 Unspecified place or not applicable
CPT/HCPCS: 36415; 74177-TC; 80053; 81003; 83735; 84100; 85025; 85027; 87086; 93005; 93010; 96372; 96374; 96375; 96376; 99285-25; C9803-CS; G0378; U0003; U0005

== ENCOUNTER 2023-10-06 15:14 | Inpatient (IN) | payer OTHER ==
[2023-10-06 15:27] VITALS: BMI 18.1
[2023-10-06] MEDS ORDERED: ACETAMINOPHEN INJECTION 100 ML IVPB ONE (17:27)
[2023-10-06] MEDS ORDERED: KETOROLAC TROMETHAMINE 15 MG/ML VIAL ONE (17:27)
[2023-10-06 17:30] LABS: BASO % 0.7 % (0-2.0); EOS % 0.7 % (0-4.5); HEMATOCRIT 34.2 % (32.4-45.2); HEMOGLOBIN 11.6 GM/dL (10.7-15.3); LYMPH % 42.6 % (8-40); MCH 33.5 pg (25.7-33.7); MEAN CELL VOLUME 98.3 fl (80-96); MEAN PLT VOLUME 7.9 fl (7.5-11.1); MONO % 6.4 % (3.8-10.2); NEUT % 49.6 % (42.8-82.8); PLATELET COUNT 278 10^3/uL (134-434); RBC 3.48 M/mm3 (3.60-5.2); WHITE BLOOD COUNT 5.7 K/mm3 (4.0-10.0)
[2023-10-06] MEDS: ACETAMINOPHEN 1000 MG/100 ML BAG IVPB ONE (17:31)
[2023-10-06] MEDS: KETOROLAC TROMETHAMINE 15 MG/ML VIAL IVPUSH ONE (17:32)
[2023-10-06 17:55] LABS: POTASSIUM 4.4 mmol/L (3.5-5.1)
[2023-10-06 17:57] LABS: BLOOD UREA NITROGEN 13.1 mg/dL (7-18); CALCIUM 9.4 mg/dL (8.5-10.1)
[2023-10-06 18:00] LABS: CREATININE 1.2 mg/dL (0.55-1.3)
[2023-10-06 18:02] LABS: BILIRUBIN,TOTAL 0.3 mg/dL (0.2-1); TOT PROT 7.2 g/dl (6.4-8.2)
[2023-10-06] MEDS ORDERED: MIRTAZAPINE 15 MG TABLET (FP) ONE (22:23)
[2023-10-06] MEDS ORDERED: ROSUVASTATIN CA 20 MG TABLET ONE (22:24)
[2023-10-06] MEDS ORDERED: RANOLAZINE E.R. 500 MG TABLET (FP) ONE (22:25)
[2023-10-06 22:28] LABS: POTASSIUM 4.4 mmol/L (3.5-5.1)
[2023-10-06] MEDS: RANOLAZINE E.R. 500 MG TABLET (FP) PO SCH (22:28)
[2023-10-06] MEDS: MIRTAZAPINE 15 MG TABLET (FP) PO SCH (22:28)
[2023-10-06] MEDS: ROSUVASTATIN CA 20 MG TABLET PO SCH (22:28)
[2023-10-06 22:30] LABS: BLOOD UREA NITROGEN 14.9 mg/dL (7-18)
[2023-10-06 22:33] LABS: CREATININE 1.5 mg/dL (0.55-1.3)
[2023-10-07] MEDS: ACETAMINOPHEN 1000 MG/100 ML BAG IVPB PRN (03:07)
[2023-10-07 06:42] LABS: BASO % 2.2 % (0-2.0); EOS % 1.5 % (0-4.5); HEMATOCRIT 30.4 % (32.4-45.2); HEMOGLOBIN 10.3 GM/dL (10.7-15.3); LYMPH % 54.8 % (8-40); MCH 33.6 pg (25.7-33.7); MCHC 33.9 g/dl (32.0-36.0); MEAN CELL VOLUME 99.3 fl (80-96); MEAN PLT VOLUME 8.2 fl (7.5-11.1); MONO % 8.5 % (3.8-10.2); PLATELET COUNT 238 10^3/uL (134-434); RBC 3.06 M/mm3 (3.60-5.2); RDW 12.9 % (11.6-15.6); WHITE BLOOD COUNT 5.1 K/mm3 (4.0-10.0)
[2023-10-07 07:12] LABS: POTASSIUM 4.4 mmol/L (3.5-5.1)
[2023-10-07 07:24] LABS: BLOOD UREA NITROGEN 18.1 mg/dL (7-18); CALCIUM 9.1 mg/dL (8.5-10.1)
[2023-10-07 07:25] LABS: MAGNESIUM 2.3 mg/dL (1.8-2.4)
[2023-10-07 07:27] LABS: CREATININE 1.4 mg/dL (0.55-1.3); PHOSPHOROUS 4.6 mg/dL (2.5-4.9)
[2023-10-07 07:28] LABS: BILIRUBIN,TOTAL 0.2 mg/dL (0.2-1); TOT PROT 5.8 g/dl (6.4-8.2)
[2023-10-07 07:47] LABS: ALBUMIN 3.1 g/dl (3.4-5.0)
[2023-10-07] MEDS: DULoxetine HCL 20 MG CAPSULE.DR PO SCH (08:15)
[2023-10-07] MEDS ORDERED: DULoxetine HCL 30 MG CAPSULE.DR PO ONE (10:42)
[2023-10-07] MEDS: ENOXAPARIN NA (PORCINE) 40 MG/0.4 ML DISP.SYRIN SQ SCH (11:10)
[2023-10-07] MEDS: LOSARTAN POTASSIUM 25 MG TABLET PO SCH (11:13)
[2023-10-07] MEDS: ASPIRIN 81 MG CHEWABLE TABLETS PO SCH (11:13)
[2023-10-07] MEDS: CLOPIDOGREL BISULFATE 75 MG TABLET (FP) PO SCH (11:13)
[2023-10-07] MEDS ORDERED: DULoxetine HCL 30 MG CAPSULE.DR PO SCH (11:20)
[2023-10-07] MEDS: DULoxetine HCL 30 MG CAPSULE.DR PO SCH (11:25)
[2023-10-07] MEDS: DULoxetine HCL 60 MG CAPSULE.DR PO SCH (11:31)
[2023-10-07] MEDS ORDERED: ACETAMINOPHEN 1000 MG/100 ML BAG IVPB PRN (14:22)
[2023-10-07] MEDS: NICOTINE 7 MG/24 HOURS TOPICAL PATCH TD SCH (17:52)
[2023-10-07] MEDS: SODIUM CHLORIDE 500 ML IV STA (17:52)
[2023-10-07] MEDS: KETOROLAC TROMETHAMINE 15 MG/ML VIAL IVPUSH PRN (20:20)
[2023-10-07] MEDS: diazePAM 5 MG TABLET PO SCH (22:52)
[2023-10-07 23:41] LABS: EPI CELLS 6 /uL (0-25.1); HYALINE CASTS 0 /uL (0-3.1); PH,URINE 5.5 (5.0-8.0); URINE APPEARANCE CLEAR; URINE BACTERIA 4636 /uL (0-1359); URINE BILIRUBIN NEGATIVE (NEGATIVE); URINE COLOR YELLOW; URINE GLUCOSE (UA) NEGATIVE (NEGATIVE); URINE KETONE NEGATIVE (NEGATIVE); URINE LEUK ESTERASE 1+ (NEGATIVE); URINE NITRITE POSITIVE (NEGATIVE); URINE PROTEIN NEGATIVE (NEGATIVE); URINE RBC 13 /uL (0-23.9); URINE UROBILINOGEN 0.2 mg/dL (0.2-1.0); URINE WBC 70 /uL (0-25.8)
[2023-10-07] MEDS: ACETAMINOPHEN 1000 MG/100 ML BAG IVPB ONE (23:45)
[2023-10-08 07:51] LABS: HEMATOCRIT 31.9 % (32.4-45.2); HEMOGLOBIN 10.7 GM/dL (10.7-15.3); MCH 33.2 pg (25.7-33.7); MCHC 33.6 g/dl (32.0-36.0); MEAN CELL VOLUME 98.8 fl (80-96); MEAN PLT VOLUME 7.7 fl (7.5-11.1); PLATELET COUNT 249 10^3/uL (134-434); RBC 3.22 M/mm3 (3.60-5.2); RDW 13.1 % (11.6-15.6); WHITE BLOOD COUNT 4.2 K/mm3 (4.0-10.0)
[2023-10-08 08:09] LABS: POTASSIUM 4.5 mmol/L (3.5-5.1)
[2023-10-08 08:12] LABS: CALCIUM 8.8 mg/dL (8.5-10.1)
[2023-10-08 08:13] LABS: ALBUMIN 3.1 g/dl (3.4-5.0); BLOOD UREA NITROGEN 14.5 mg/dL (7-18); MAGNESIUM 2.1 mg/dL (1.8-2.4)
[2023-10-08 08:16] LABS: CREATININE 1.4 mg/dL (0.55-1.3)
[2023-10-08 08:18] LABS: BILIRUBIN,TOTAL 0.3 mg/dL (0.2-1); TOT PROT 5.8 g/dl (6.4-8.2)
[2023-10-08] MEDS: GABAPENTIN 300 MG CAPSULE PO SCH (11:56)
[2023-10-08] MEDS: PANTOPRAZOLE 40 MG TABLET PO SCH (11:56)
[2023-10-08] MEDS: BUPRENORPHINE 20 MCG/HR TP SCH (13:55)
[2023-10-09 07:39] LABS: HEMATOCRIT 30.6 % (32.4-45.2); HEMOGLOBIN 10.2 GM/dL (10.7-15.3); MCH 33.1 pg (25.7-33.7); MCHC 33.5 g/dl (32.0-36.0); MEAN CELL VOLUME 98.9 fl (80-96); MEAN PLT VOLUME 8.3 fl (7.5-11.1); PLATELET COUNT 251 10^3/uL (134-434); RBC 3.09 M/mm3 (3.60-5.2); RDW 13.1 % (11.6-15.6); WHITE BLOOD COUNT 6.4 K/mm3 (4.0-10.0)
[2023-10-09 07:57] LABS: POTASSIUM 5.1 mmol/L (3.5-5.1)
[2023-10-09 08:06] LABS: CALCIUM 8.9 mg/dL (8.5-10.1)
[2023-10-09 08:07] LABS: ALBUMIN 3.1 g/dl (3.4-5.0); BLOOD UREA NITROGEN 20.5 mg/dL (7-18); MAGNESIUM 2.1 mg/dL (1.8-2.4)
[2023-10-09 08:10] LABS: CREATININE 1.3 mg/dL (0.55-1.3)
[2023-10-09 08:12] LABS: BILIRUBIN,TOTAL 0.2 mg/dL (0.2-1); TOT PROT 5.7 g/dl (6.4-8.2)
[2023-10-09 09:42] LABS: METHADONE, UR NEGATIVE (NEGATIVE); OPIATES, URI NEGATIVE (NEGATIVE); URINE BARBITURATES NEGATIVE (NEGATIVE)
[2023-10-09 09:43] LABS: PHENCYCLIDINE,URINE NEGATIVE (NEGATIVE)
[2023-10-09 09:48] LABS: COCAINE, UR POSITIVE (NEGATIVE); URINE AMPHETAMINES NEGATIVE (NEGATIVE); URINE BENZODIAZEPINES POSITIVE (NEGATIVE)
[2023-10-09] MEDS: ACETAMINOPHEN 1000 MG/100 ML BAG IVPB ONE (11:54)
[2023-10-09] MEDS: predniSONE 5 MG TABLET (UD) PO SCH (15:53)
[2023-10-09] MEDS: CEFTRIAXONE 1 GM in DEXTROSE 5%-WATER - 50 ML IVPB SCH (15:54)
[2023-10-09 22:19] VITALS: RESP 20
[2023-10-10 07:47] LABS: HEMATOCRIT 33.4 % (32.4-45.2); HEMOGLOBIN 11.2 GM/dL (10.7-15.3); MCH 33.1 pg (25.7-33.7); MCHC 33.6 g/dl (32.0-36.0); MEAN CELL VOLUME 98.4 fl (80-96); MEAN PLT VOLUME 8.3 fl (7.5-11.1); PLATELET COUNT 310 10^3/uL (134-434); RBC 3.39 M/mm3 (3.60-5.2); RDW 13.6 % (11.6-15.6); WHITE BLOOD COUNT 8.5 K/mm3 (4.0-10.0)
[2023-10-10 08:12] LABS: POTASSIUM 4.8 mmol/L (3.5-5.1)
[2023-10-10 08:15] LABS: ALBUMIN 3.5 g/dl (3.4-5.0); CALCIUM 9.5 mg/dL (8.5-10.1); MAGNESIUM 2.1 mg/dL (1.8-2.4)
[2023-10-10 08:16] LABS: BLOOD UREA NITROGEN 20.1 mg/dL (7-18)
[2023-10-10 08:18] LABS: CREATININE 1.3 mg/dL (0.55-1.3)
[2023-10-10 08:20] LABS: BILIRUBIN,TOTAL 0.3 mg/dL (0.2-1); TOT PROT 6.5 g/dl (6.4-8.2)
[2023-10-10] MEDS: POLYETHYLENE GLYCOL (HEALTHYLAX) 3350 17 GM PACKET PO SCH (12:29)
[2023-10-10 14:13] VITALS: BP 144/62; PULSE 64; TEMP 98.2
== END 2023-10-10 19:00 | disposition home or self-care (01) | DRG 351 ==
LOC: JER 15:14 → JERBED 18:35 → OBSVTOIN 21:40 → J7W 22:46
PROVIDERS: ADMIT Internal Medicine; ATTEND Internal Medicine
DX: M13.0 Polyarthritis, unspecified (principal); F31.9 Bipolar disorder, unspecified; G43.909 Migraine, unspecified, not intractable, without status migrainosus; I25.10 Atherosclerotic heart disease of native coronary artery without angina pectoris; I25.2 Old myocardial infarction; Z86.16 Personal history of COVID-19; G89.4 Chronic pain syndrome; F17.210 Nicotine dependence, cigarettes, uncomplicated; N28.1 Cyst of kidney, acquired; E44.0 Moderate protein-calorie malnutrition; Z68.1 Body mass index [BMI] 19.9 or less, adult; E86.0 Dehydration; N39.0 Urinary tract infection, site not specified
CPT/HCPCS: 36415; 80048; 80053; 80307; 81003; 82550; 83735; 84100; 85025; 85027; 85651; 86038; 86140; 87086; 87186; 93005; 93010; 97116-GP; 97161-GP; 99285-25; G0378; J0131